=== PATIENT | female | born 1990 | race Hispanic/Latino ===

== ENCOUNTER 2018-06-18 16:03 | Emergency (ER) | payer OTHER ==
[2018-06-18] MEDS ORDERED: NA CHLORIDE 0.9% 1,000 ML ONE (16:32)
[2018-06-18] MEDS ORDERED: KETOROLAC 30 MG/ML INJ ONE (16:32)
[2018-06-18] MEDS ORDERED: ONDANSETRON 4 MG/2 ML VIAL ONE (16:32)
[2018-06-18 16:45] LABS: Absolute Monocytes 0.7 K/uL (0.1-1.3); Absolute Neutrophil 14.2 K/uL (1.8-8.0); Basophils % 0.2 % (0-1.3); Eosinophils % 0.1 % (0-4.4); Hematocrit 44.2 % (36.0-45.0); MCH 31.1 pg (27.0-35.0); MCV 90.9 fL (80-100); MPV 9.3 fL (7.6-11.3); Monocytes % 4.2 % (3.3-12.3); RBC Red Blood Cell Count 4.87 M/uL (3.86-4.86)
[2018-06-18 16:54] LABS: ALT/SGPT 16 U/L (12-78); AST/SGOT 14 U/L (15-37); Albumin 3.6 g/dL (3.4-5.0); Alkaline Phosphatase 73 U/L (45-117); Amylase Level 40 U/L (25-115); BUN Blood Urea Nitrogen 12 mg/dL (7-18); Bicarbonate 24 mmol/L (21-32); Bilirubin Direct < 0.1 mg/dL (0-0.2); Bilirubin Total 0.4 mg/dL (0.2-1.0); Glucose Level 98 mg/dL (74-106); Lipase 93 U/L (73-393); Potassium 3.7 mmol/L (3.5-5.1); Sodium Level 139 mmol/L (136-145)
[2018-06-18 17:05] LABS: Blood Morphology Comment NOT SEEN (NOT SEEN); Platelet Estimate ADEQ; Urine White Blood Cell Casts OK
--- NOTE | 2018-06-18 17:49 | RAD REPORT ---
EXAM DESCRIPTION: CTAbdomen Pelvis W Contrast - 06/18/2018 5:39 pm CLINICAL HISTORY: Abdominal pain. IV contrast only;Abd pain COMPARISON: Abdomen Pelvis W Contrast dated 04/29/2016; CT ABD PELVIS W CONTRAST dated 03/12/2015 TECHNIQUE: Biphasic CT imaging of the abdomen and pelvis was performed with 100 ml non-ionic IV cont rast. All CT scans are performed using dose optimization technique as appropriate and may include automated exposure control or mA/KV adjustment according to patient size. FINDINGS: The lung bases are clear.Cholecystectomy. The liver, spleen, pancreas, adrenal glands and kidneys are within normal limits. No bowel obstruction, free air or abscess. Multiple thickening enhancing small bowel loops are seen i n the abdomen compatible with enteritis. There is involvement of the terminal ileum also seen. The ap pendix is normal. Mild free fluid is present. No evidence of significant lymphadenopathy. No suspicious bony findings. IMPRESSION: Moderate enteritis pattern is seen including the terminal ileum. The findings may be inf ectious or related to underlying inflammatory bowel disease.
--- NOTE | 2018-06-18 17:53 | ER ---
Nurse's Notes [facility] Name: Jazmyn Barron Age: 27 yrs Sex: Female : 1990 Arrival Date: 06/18/2018 Time: 16:07 Bed 26 Private MD: None, None Diagnosis: Enteritis;Upper abdominal pain, unspecified;Nausea and vomiting Presentation: 06/18 16:09 Presenting complaint: Patient states: Epigastric pain since night, but today aj1 the pain became severe and she started vomiting. Reports pain is exacerbated by eating. Denies fever. Reports diarrhea. Transition of care: patient was not received from another setting of care. Onset of symptoms was May 16, 2018. Risk Assessment: Do you want to hurt yourself or someone else? Patient reports no desire to harm self or others. Initial Sepsis Screen: Does the patient meet any 2 criteria? HR > 90 bpm. No. Patient's initial sepsis screen is negative. Does the patient have a suspected source of infection? No. Patient's initial sepsis screen is negative. Care prior to arrival: None. 16:09 Method Of Arrival: Ambulatory aj1 16:09 Acuity: TRISTON 3 aj1 Triage Assessment: 16:11 General: Appears in no apparent distress. uncomfortable, Behavior is anxious, crying, aj1 restless. Pain: Complains of pain in epigastric area Pain currently is 10 out of 10 on a pain scale. Quality of pain is described as burning, Pain began 2-3 days ago. Neuro: Level of Consciousness is awake, alert, obeys commands. Cardiovascular: Patient's skin is warm and dry. Respiratory: Airway is patent Respiratory effort is even, unlabored, Respiratory pattern is regular, symmetrical. GI: Reports diarrhea, nausea, vomiting. 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 - Social history:: Smoking status: Patient/guardian denies using tobacco. - Ebola Screening: : Patient denies travel to an Ebola-affected area in the 21 days before illness onset. Screenin:33 Abuse screen: Denies threats or abuse. Denies injuries from another. Nutritional rv screening: No deficits noted. Tuberculosis screening: No symptoms or risk factors identified. Fall Risk None identified. Assessment: 16:20 General: Appears in no apparent distress. uncomfortable, Behavior is calm, cooperative. rv 16:20 Pain: Complains of pain in abdomen Pain currently is 10 out of 10 on a pain scale. rv Neuro: Level of Consciousness is awake, alert, obeys commands, Oriented to person, place, time, situation. Cardiovascular: Capillary refill < 3 seconds. Respiratory: Airway is patent. GI: No signs and/or symptoms were reported involving the gastrointestinal system. : No signs and/or symptoms were reported regarding the genitourinary system. EENT: No signs and/or symptoms were reported regarding the EENT system. Derm: Skin is intact. Musculoskeletal: No signs and/or symptoms reported regarding the musculoskeletal system. 17:49 Reassessment: Patient appears in no apparent distress at this time. Patient and/or rv family updated on plan of care and expected duration. Pain level reassessed. Patient is alert, oriented x 3, equal unlabored respirations, skin warm/dry/pink. pain is decreasing. Vital Signs: 16:11 BP 130 / 90; Pulse 106; Resp 20; Temp 97.4(TE); Pulse Ox 96% on R/A; Weight 99.79 kg aj1 (R); Height 4 ft. 10 in. (147.32 cm) (R); Pain 10/10; 16:34 BP 105 / 70; Pulse 102; Pulse Ox 100% on R/A; rv 17:48 BP 108 / 61; Pulse 107; Pulse Ox 100% on R/A; rv 16:11 Body Mass Index 45.98 (99.79 kg, 147.32 cm) aj1 ED Course: 16:07 Patient arrived in ED. sb2 16:07 None, None is Private Physician. sb2 16:11 Triage completed. aj1 16:11 Arm band placed on Patient placed in an exam room. aj1 16:14 [facility]-C [facility]. kb 16:14 Gene Briscoe MD is Attending Physician. kb 16:20 Inserted saline lock: 20 gauge in right antecubital area, using aseptic technique. rv 16:33 Patient has correct armband on for positive identification. Bed in low position. Call rv light in reach. Side rails up X 1. Pulse ox on. NIBP on. 17:39 CT Abd/Pelvis - W/Contrast In Process Unspecified. EDMS 17:39 CT completed. Patient moved to CT via wheelchair. Patient moved back from CT. bq 18:00 No provider procedures requiring assistance completed. IV discontinued, bleeding rv controlled, No redness/swelling at site. Pressure dressing applied. Administered Medications: 16:31 Drug: TORadol 30 mg Route: IVP; Site: right antecubital; rv 17:49 Follow up: Response: Pain is decreased rv 16:32 Drug: NS 0.9% 1000 ml Route: IV; Rate: 1000 ml; Site: right antecubital; rv 17:50 Follow up: IV Status: Completed infusion rv 16:32 Drug: Zofran 4 mg Route: IVP; Site: right antecubital; rv 17:49 Follow up: Response: Nausea is decreased rv 17:59 Drug: Cipro 500 mg Route: PO; rv 18:00 Follow up: Response: Medication administered at discharge. rv 18:00 Drug: Flagyl 500 mg Route: PO; rv 18:00 Follow up: Response: Medication administered at discharge. rv Outcome: 17:52 Discharge ordered by . kb 18:01 Discharged to home ambulatory. rv 18:01 Condition: improved 18:01 Discharge instructions given to patient, Instructed on discharge instructions, follow up and referral plans. medication usage, Demonstrated understanding of instructions, follow-up care, medications, Prescriptions given X 4. 18:01 Patient left the ED. rv Signatures: Dispatcher [employer] EDMS Eliz Jean, PACKAGING SPECIALIST-C PACKAGING SPECIALIST-Raine Vasquez, RN RN aj1 Madie Whiting Sheri sb2 Eldon Reid RN RN rv
--- NOTE | 2018-06-18 17:53 | EDPHYS ---
Physician Documentation [facility] Name: Jazmyn Barron Age: 27 yrs Sex: Female : 1990 Arrival Date: 06/18/2018 Time: 16:07 Bed 26 Private MD: None, None ED Physician Gene Briscoe HPI: 06/18 16:23 This 27 yrs old Female presents to ER via Ambulatory with complaints of kb Nausea/Vomiting/Diarrhea. 16:23 The patient has not experienced similar symptoms in the past. The patient has not kb recently seen a physician. 16:25 The patient presents with abdominal pain in the epigastric area. Onset: The kb symptoms/episode began/occurred 3 day(s) ago. The symptoms do not radiate. Associated signs and symptoms: Pertinent positives: nausea and vomiting. The symptoms are described as constant. Modifying factors: The symptoms are alleviated by nothing, the symptoms are aggravated by pressure. Severity of pain: At its worst the pain was moderate in the emergency department the pain is unchanged. Pt reports abd pain for 3 days. Nausea and vomiting started today. 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 - Social history:: Smoking status: Patient/guardian denies using tobacco. - Ebola Screening: : Patient denies travel to an Ebola-affected area in the 21 days before illness onset. ROS: 16:24 Constitutional: Negative for fever, chills, and weight loss, Neck: Negative for injury, kb pain, and swelling, Cardiovascular: Negative for chest pain, palpitations, and edema, Respiratory: Negative for shortness of breath, cough, wheezing, and pleuritic chest pain, Back: Negative for injury and pain, : Negative for injury, bleeding, discharge, and swelling, MS/Extremity: Negative for injury and deformity, Skin: Negative for injury, rash, and discoloration, Neuro: Negative for headache, weakness, numbness, tingling, and seizure. 16:24 Abdomen/GI: Positive for abdominal pain, nausea and vomiting, Negative for diarrhea, constipation, abdominal cramps, abdominal distension, anorexia. Exam: 16:24 Constitutional: This is a well developed, well nourished patient who is awake, alert, kb and in no acute distress. Head/Face: Normocephalic, atraumatic. Chest/axilla: Normal chest wall appearance and motion. Nontender with no deformity. No lesions are appreciated. Cardiovascular: Regular rate and rhythm with a normal S1 and S2. No gallops, murmurs, or rubs. Normal PMI, no JVD. No pulse deficits. Respiratory: Lungs have equal breath sounds bilaterally, clear to auscultation and percussion. No rales, rhonchi or wheezes noted. No increased work of breathing, no retractions or nasal flaring. Back: No spinal tenderness. No costovertebral tenderness. Full range of motion. Skin: Warm, dry with normal turgor. Normal color with no rashes, no lesions, and no evidence of cellulitis. MS/ Extremity: Pulses equal, no cyanosis. Neurovascular intact. Full, normal range of motion. Neuro: Awake and alert, GCS 15, oriented to person, place, time, and situation. Cranial nerves II-XII grossly intact. Motor strength 5/5 in all extremities. Sensory grossly intact. Cerebellar exam normal. Normal gait. 16:24 Abdomen/GI: Inspection: abdomen appears normal, Bowel sounds: normal, in all quadrants, Palpation: soft, in all quadrants, moderate abdominal tenderness, in the right upper quadrant. Vital Signs: 16:11 BP 130 / 90; Pulse 106; Resp 20; Temp 97.4(TE); Pulse Ox 96% on R/A; Weight 99.79 kg aj1 (R); Height 4 ft. 10 in. (147.32 cm) (R); Pain 10/10; 16:34 BP 105 / 70; Pulse 102; Pulse Ox 100% on R/A; rv 17:48 BP 108 / 61; Pulse 107; Pulse Ox 100% on R/A; rv 16:11 Body Mass Index 45.98 (99.79 kg, 147.32 cm) aj1 MDM: 16:14 Patient medically screened. kb 16:24 Data reviewed: vital signs, nurses notes. Data interpreted: Pulse oximetry: on room air kb is 96 %. Interpretation: normal. 17:51 Counseling: I had a detailed discussion with the patient and/or guardian regarding: the kb historical points, exam findings, and any diagnostic results supporting the discharge/admit diagnosis, lab results, radiology results, the need for outpatient follow up, a family practitioner, to return to the emergency department if symptoms worsen or persist or if there are any questions or concerns that arise at home. 06/18 16:18 Order name: Amylase, Serum; Complete Time: 17:00 kb 06/18 16:18 Order name: Basic Metabolic Panel; Complete Time: 17:00 kb 06/18 16:18 Order name: CBC with Diff; Complete Time: 17:06 kb 06/18 16:18 Order name: Hepatic Function; Complete Time: 17:00 kb 06/18 16:18 Order name: Lipase; Complete Time: 17:00 kb 06/18 16:49 Order name: CBC Smear Scan; Complete Time: 17:06 EDMS 06/18 17:01 Order name: CT Abd/Pelvis - W/Contrast; Complete Time: 17:50 kb 06/18 17:28 Order name: Urine Dipstick--Ancillary (enter results) eb 06/18 17:28 Order name: Urine --Ancillary (enter results) eb 06/18 16:18 Order name: IV Saline Lock; Complete Time: 16:23 kb 06/18 16:18 Order name: Labs collected and sent; Complete Time: 16:23 kb 06/18 16:18 Order name: Urine Dipstick-Ancillary (obtain specimen); Complete Time: 17:50 kb Administered Medications: 16:31 Drug: TORadol 30 mg Route: IVP; Site: right antecubital; rv 17:49 Follow up: Response: Pain is decreased rv 16:32 Drug: NS 0.9% 1000 ml Route: IV; Rate: 1000 ml; Site: right antecubital; rv 17:50 Follow up: IV Status: Completed infusion rv 16:32 Drug: Zofran 4 mg Route: IVP; Site: right antecubital; rv 17:49 Follow up: Response: Nausea is decreased rv 17:59 Drug: Cipro 500 mg Route: PO; rv 18:00 Follow up: Response: Medication administered at discharge. rv 18:00 Drug: Flagyl 500 mg Route: PO; rv 18:00 Follow up: Response: Medication administered at discharge. rv Disposition: 18:26 Co-signature as Attending Physician, Gene Briscoe MD. rn Disposition: 06/18/18 17:52 Discharged to Home. Impression: Enteritis, Upper abdominal pain, unspecified, Nausea and vomiting. - Condition is Stable. - Discharge Instructions: Nausea and Vomiting, Adult, [id number], Abdominal Pain, Adult, [id number]. - Prescriptions for Bentyl 20 mg Oral Tablet - take 1 tablet by ORAL route every 6 hours As needed; 20 tablet. Flagyl 500 mg Oral Tablet - take 1 tablet by ORAL route every 8 hours for 7 days; 21 tablet. Zofran 4 mg Oral Tablet - take 1 tablet by ORAL route every 6 hours As needed; 20 tablet. Cipro 500 mg Oral Tablet - take 1 tablet by ORAL route every 12 hours for 7 days; 14 tablet. - Medication Reconciliation Form, Thank You Letter, Antibiotic Education, Prescription Opioid Use form. - Follow up: Emergency Department; When: As needed; Reason: Worsening of condition. Follow up: Private Physician; When: 2 - 3 days; Reason: Recheck today's complaints, Continuance of care, Re-evaluation by your physician. Signatures: Dispatcher [employer] EDMS Eliz Jean, CODY-C CLINICAL ENGINEER-Raine Vasquez RN RN aj1 Gene Briscoe MD MD rn Vicente, Ronaldo, RN RN rv Corrections: (The following items were deleted from the chart) 18:01 17:52 06/18/2018 17:52 Discharged to Home. Impression: Enteritis; Upper abdominal pain, rv unspecified; Nausea and vomiting. Condition is Stable. Forms are Medication Reconciliation Form, Thank You Letter, Antibiotic Education, Prescription Opioid Use. Follow up: Emergency Department; When: As needed; Reason: Worsening of condition. Follow up: Private Physician; When: 2 - 3 days; Reason: Recheck today's complaints, Continuance of care, Re-evaluation by your physician. kb
[2018-06-18] MEDS ORDERED: metroNIDAZOLE 500 MG TABLET ONE (17:59)
[2018-06-18] MEDS ORDERED: CIPROFLOXACIN HCL 500 MG TAB ONE (17:59)
[2018-06-18 18:09] VITALS: TEMP 97.4
[2018-06-18 18:10] VITALS: O2SAT 100
[2018-06-18 18:11] VITALS: BP 108/61
[2018-06-18 18:21] LABS: Urine Blood NEGATIVE (NEG); Urine Glucose NEGATIVE (NEG); Urine Protein 1+ (NEG)
== END 2018-06-18 18:01 | disposition home or self-care (01) ==
LOC: ER 16:03
DX: R10.9 Unspecified abdominal pain (principal)
CPT/HCPCS: 36415; 74177; 80048; 80076; 81003; 81025; 82150; 83690; 85025; 96361; 96374; 96375; 99284; J2405; J7030; Q9967

== ENCOUNTER 2018-06-25 19:25 | Emergency (ER) | payer OTHER ==
[2018-06-25 20:32] LABS: Urine Blood TRACE (NEG); Urine Glucose NEGATIVE (NEG); Urine Protein NEGATIVE (NEG); Urine Specific Gravity <1.005 (1.005-1.030); Urine pH 6.5 (5.0-7.0)
[2018-06-25 20:54] LABS: Absolute Lymphocytes (CBC) 3.5 K/uL (0.7-4.9); Absolute Monocytes 0.7 K/uL (0.1-1.3); Absolute Neutrophil 6.2 K/uL (1.8-8.0); Basophils % 0.6 % (0-1.3); Eosinophils % 1.1 % (0-4.4); Lymphocytes % 32.9 % (15.3-44.8); MCH 31.6 pg (27.0-35.0); MCV 91.4 fL (80-100); MPV 8.2 fL (7.6-11.3); Monocytes % 6.9 % (3.3-12.3); RBC Red Blood Cell Count 4.05 M/uL (3.86-4.86)
[2018-06-25 21:26] LABS: BUN Blood Urea Nitrogen 6 mg/dL (7-18); Bicarbonate 27 mmol/L (21-32); Glucose Level 93 mg/dL (74-106); HCG, Quantitative 458 mIU/mL (1-3); Sodium Level 140 mmol/L (136-145)
[2018-06-25 21:30] LABS: Potassium 2.7 mmol/L (3.5-5.1)
[2018-06-25] MEDS ORDERED: POTASSIUM 25 MEQ EFFERV TAB ONE (21:37)
--- NOTE | 2018-06-25 21:40 | ER ---
Nurse's Notes [facility] Name: Jazmyn Barron Age: 27 yrs Sex: Female : 1990 Arrival Date: 06/25/2018 Time: 19:27 Bed 27 Private MD: Diagnosis: Hypokalemia;Encounter for test, result positive Presentation: 06/25 20:00 Presenting complaint: Patient states: she was here last week for abdominal pain, n/v mg2 and discharged with antibiotics. Last night she did 3x urine preg test and she is here to make sure she is . she has mild low back pain, nausea and feeling exhausted. Transition of care: patient was not received from another setting of care. Onset of symptoms was June 24, 2018. Risk Assessment: Do you want to hurt yourself or someone else? Patient reports no desire to harm self or others. Initial Sepsis Screen: Does the patient meet any 2 criteria? No. Patient's initial sepsis screen is negative. Does the patient have a suspected source of infection? No. Patient's initial sepsis screen is negative. Care prior to arrival: None. 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 - Social history:: Smoking status: Patient/guardian denies using tobacco, Patient/guardian denies using alcohol, street drugs, IV drugs. - Ebola Screening: : No symptoms or risks identified at this time. Screenin:05 Abuse screen: Denies threats or abuse. Denies injuries from another. Nutritional mg2 screening: No deficits noted. Tuberculosis screening: No symptoms or risk factors identified. Fall Risk None identified. Assessment: 20:50 General: Appears in no apparent distress. comfortable, Behavior is calm, cooperative. mg2 Pain: Complains of pain in lower back Pain does not radiate. Pain currently is 2 out of 10 on a pain scale. Quality of pain is described as aching, Pain began gradually, Is intermittent, Alleviated by rest. Neuro: Level of Consciousness is awake, alert, obeys commands, Oriented to person, place, time, situation. Cardiovascular: Capillary refill < 3 seconds Patient's skin is warm and dry. Respiratory: Airway is patent Respiratory effort is even, unlabored, Respiratory pattern is regular, symmetrical. GI: Reports nausea. : Urine is clear. EENT: No signs and/or symptoms were reported regarding the EENT system. Derm: Skin is intact, Skin is pink, warm \T\ dry. normal. Musculoskeletal: No signs and/or symptoms reported regarding the musculoskeletal system. 21:29 Reassessment: Patient appears in no apparent distress at this time. K- 2.7 relayed by [facility] accelerator technician. 21:36 Reassessment: Patient appears in no apparent distress at this time. Patient and/or mg2 family updated on plan of care and expected duration. Pain level reassessed. Patient is alert, oriented x 3, equal unlabored respirations, skin warm/dry/pink. Vital Signs: 20:04 BP 132 / 75; Pulse 103; Resp 18; Temp 98.4(O); Pulse Ox 100% ; Weight 99.79 kg; Height mg2 4 ft. 10 in. (147.32 cm); Pain 2/10; 22:05 BP 128 / 78; Pulse 90; Resp 18; Pulse Ox 100% on R/A; Pain 0/10; mg2 20:04 Body Mass Index 45.98 (99.79 kg, 147.32 cm) mg2 ED Course: 19:27 Patient arrived in ED. ds1 19:58 [facility] Flaherty [facility] 19:58 Ad Montgomery MD is Attending Physician. jmm 20:00 Austen Rodríguez, CECILIA is Primary Nurse. mg2 20:02 Triage completed. mg2 20:05 Arm band placed on. mg2 20:38 No provider procedures requiring assistance completed. Inserted saline lock: 20 gauge mg2 in right antecubital area, using aseptic technique. Blood collected. 20:52 Patient has correct armband on for positive identification. mg2 21:04 Ultrasound completed. Patient tolerated well. sg3 21:09 US Pelvis Complete In Process Unspecified. EDMS 21:38 Ulises Acosat MD is Referral Physician. jmm 22:04 IV discontinued, intact, bleeding controlled, No redness/swelling at site. Pressure mg2 dressing applied. Administered Medications: 21:36 Drug: K-Lyte Effervescent Tablet 50 mEq Route: PO; mg2 22:05 Follow up: Response: No adverse reaction; Medication administered at discharge. mg2 Outcome: 21:39 Discharge ordered by . laya 22:04 Discharged to home ambulatory, with friend. mg2 22:04 Condition: stable 22:04 Discharge instructions given to patient, friend, Instructed on discharge instructions, follow up and referral plans. Demonstrated understanding of instructions, follow-up care. 22:06 Patient left the ED. mg2 Signatures: Dispatcher [employer] EDMS Gianni Flaherty PA PA jmm Sanford, Demi ds1 Chelo Pinedo sg3 Austen Rodríguez, CECILIA RN mg2
--- NOTE | 2018-06-25 21:40 | EDPHYS ---
Physician Documentation [facility] Name: Jazmyn Barron Age: 27 yrs Sex: Female : 1990 Arrival Date: 06/25/2018 Time: 19:27 Bed 27 Private MD: ED Physician Ad Montgomery HPI: 06/25 20:20 This 27 yrs old Female presents to ER via Ambulatory with complaints of jmm Nausea-Possible . 20:20 The patient presents to the emergency department with nausea. Onset: The jmm symptoms/episode began/occurred gradually, 1 day(s) ago. Possible causes: . The symptoms are aggravated by nothing. The symptoms are alleviated by nothing. Associated signs and symptoms: Pertinent negatives: vomiting. This is a 27 year old female with no chronic medical conditions that presents to the ED with lower back pain and nausea beginning today. Patient denies vaginal bleeding, pelvic pain, diarrhea, vomiting, or abdominal pain. Patient states she took a home test at home which was positive. The patient was recently diagnosed with an infection in her small intestine and was currently taking cipro and flagyl which she discontinued today. . 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 - Social history:: Smoking status: Patient/guardian denies using tobacco, Patient/guardian denies using alcohol, street drugs, IV drugs. - Ebola Screening: : No symptoms or risks identified at this time. ROS: 20:20 Constitutional: Negative for fever, chills, and weight loss, Cardiovascular: Negative jmm for chest pain, palpitations, and edema, Respiratory: Negative for shortness of breath, cough, wheezing, and pleuritic chest pain. 20:20 MS/Extremity: Negative for injury and deformity, Skin: Negative for injury, rash, and discoloration, Neuro: Negative for headache, weakness, numbness, tingling, and seizure. 20:20 Abdomen/GI: Positive for nausea. 20:20 Back: Positive for pain with movement. 20:20 All other systems are negative. Exam: 20:20 Head/Face: atraumatic. Chest/axilla: Normal chest wall appearance and motion. [facility] Cardiovascular: Regular rate and rhythm. No edema appreciated Respiratory: Normal respirations, no respiratory distress appreciated 20:20 Constitutional: The patient appears in no acute distress, alert, awake. 20:20 Abdomen/GI: Inspection: abdomen appears normal, Bowel sounds: normal, Palpation: abdomen is soft and non-tender. 20:20 Back: ROM is normal. 20:20 Musculoskeletal/extremity: ROM: intact in all extremities. 20:20 Skin: Appearance: Color: normal in color. 20:20 Neuro: Orientation: is normal, Mentation: is normal, Memory: is normal. 20:20 Psych: Behavior/mood is pleasant, cooperative. Vital Signs: 20:04 BP 132 / 75; Pulse 103; Resp 18; Temp 98.4(O); Pulse Ox 100% ; Weight 99.79 kg; Height mg2 4 ft. 10 in. (147.32 cm); Pain 2/10; 22:05 BP 128 / 78; Pulse 90; Resp 18; Pulse Ox 100% on R/A; Pain 0/10; mg2 20:04 Body Mass Index 45.98 (99.79 kg, 147.32 cm) mg2 MDM: 20:18 Patient medically screened. [facility] 21:35 Data reviewed: vital signs, nurses notes, lab test result(s), radiologic studies, [facility] ultrasound. Data interpreted: Pulse oximetry: on room air is 100 %. Interpretation: normal. Counseling: I had a detailed discussion with the patient and/or guardian regarding: the historical points, exam findings, and any diagnostic results supporting the discharge/admit diagnosis, the presence of at least one elevated blood pressure reading (>120/80) during this emergency department visit, lab results, radiology results, the need for outpatient follow up, to return to the emergency department if symptoms worsen or persist or if there are any questions or concerns that arise at home. ED course: I discussed the patient the need to follow up with OBGYN. Advised to discontinue cipro, flagyl. Encouraged to follow up with OB. Given strict return precautions for pelvic pain, vaginal bleeding, abdominal pain ext. Patient understood and agrees with the plan of care. . 06/25 20:12 Order name: Urine Dipstick--Ancillary (enter results); Complete Time: 20:50 fc 06/25 20:18 Order name: CBC with Diff; Complete Time: 21:21 [facility] 06/25 20:18 Order name: BMP; Complete Time: 21:30 [facility] 06/25 20:18 Order name: Quantitative Hcg; Complete Time: 21:30 [facility] 06/25 20:18 Order name: Abo/rh Typing; Complete Time: 21:30 [facility] 06/25 21:26 Order name: ABO/RH no charge; Complete Time: 21:30 [facility] 06/25 19:59 Order name: Urine Dipstick-Ancillary (obtain specimen); Complete Time: 20:11 [facility] 06/25 19:59 Order name: Urine Test (obtain specimen); Complete Time: 20:11 [facility] 06/25 20:20 Order name: US Pelvis Complete; Complete Time: 22:04 [facility] Administered Medications: 21:36 Drug: K-Lyte Effervescent Tablet 50 mEq Route: PO; mg2 22:05 Follow up: Response: No adverse reaction; Medication administered at discharge. mg2 Disposition: 06/25/18 21:39 Discharged to Home. Impression: Hypokalemia, Encounter for test, result positive. - Condition is Stable. - Discharge Instructions: Potassium Content of Foods, Back Pain in , Hypokalemia. - Medication Reconciliation Form, Thank You Letter, Antibiotic Education, Prescription Opioid Use form. - Follow up: Ulises Acosta MD; When: 2 - 3 days; Reason: Recheck today's complaints, Continuance of care, Re-evaluation by your physician. Addendum: 06/26/2018 23:57 Co-signature as Attending Physician, Ad Montgomery MD. g s Signatures: Dispatcher [employer] [facility] Gianni Flaherty PA PA jmm Starr, Gregory, MD MD Austen Rodríguez RN RN mg2 Corrections: (The following items were deleted from the chart) 06/25 22:06 21:39 06/25/2018 21:39 Discharged to Home. Impression: Hypokalemia; Encounter for mg2 test, result positive. Condition is Stable. Forms are Medication Reconciliation Form, Thank You Letter, Antibiotic Education, Prescription Opioid Use. Follow up: Ulises Acosta; When: 2 - 3 days; Reason: Recheck today's complaints, Continuance of care, Re-evaluation by your physician. laya
--- NOTE | 2018-06-25 21:42 | RAD REPORT ---
EXAM DESCRIPTION: US - Pelvis Complete - 06/25/2018 9:09 pm CLINICAL HISTORY: Pelvic pain COMPARISON: 06/18/2018 FINDINGS: Uterus measures 9 x 4 x 4 centimeters. The endometrial stripe measures 11 millimeters. A f ibroid is not seen. Ovaries are normal in size and echotexture. No significant free fluid is seen. IMPRESSION: Unremarkable pelvic ultrasound
[2018-06-25 22:18] VITALS: BP 128/78; O2SAT 100
[2018-06-25 22:19] VITALS: TEMP 98.4
== END 2018-06-25 22:06 | disposition home or self-care (01) ==
LOC: ER 19:25
DX: O26.891 Other specified pregnancy related conditions, first trimester (principal); E87.6 Hypokalemia
CPT/HCPCS: 36415; 76856; 80048; 81003; 84702; 85025; 86900; 86901; 99284

== ENCOUNTER 2018-07-09 19:12 | Emergency (ER) | payer OTHER ==
[2018-07-09 20:11] LABS: Absolute Lymphocytes (CBC) 3.2 K/uL (0.7-4.9); Absolute Monocytes 0.5 K/uL (0.1-1.3); Absolute Neutrophil 6.3 K/uL (1.8-8.0); Basophils % 0.9 % (0-1.3); Eosinophils % 0.8 % (0-4.4); Hematocrit 37.4 % (36.0-45.0); Lymphocytes % 31.3 % (15.3-44.8); MCH 32.4 pg (27.0-35.0); MCV 93.1 fL (80-100); MPV 9.5 fL (7.6-11.3); Monocytes % 5.2 % (3.3-12.3); RBC Red Blood Cell Count 4.02 M/uL (3.86-4.86)
[2018-07-09 20:41] LABS: BUN Blood Urea Nitrogen 10 mg/dL (7-18); Bicarbonate 28 mmol/L (21-32); Glucose Level 86 mg/dL (74-106); HCG, Quantitative 21186 mIU/mL (1-3); Potassium 3.5 mmol/L (3.5-5.1); Sodium Level 139 mmol/L (136-145)
[2018-07-09 21:17] LABS: Urine Blood TRACE (NEG); Urine Glucose NEGATIVE (NEG); Urine Protein NEGATIVE (NEG); Urine Specific Gravity 1.025 (1.005-1.030)
--- NOTE | 2018-07-09 21:58 | ER ---
Nurse's Notes [facility] Name: Jazmyn Barron Age: 27 yrs Sex: Female : 1990 Arrival Date: 07/09/2018 Time: 19:13 Bed 30 Private MD: Diagnosis: Lower abdominal pain, unspecified-Cramping during Presentation: 07/09 19:19 Presenting complaint: Patient states: Lower abdominal cramping today with spotting aj yesterday that has resolved. Patient reports being 6 week . Transition of care: patient was not received from another setting of care. Onset of symptoms was July 08, 2018. Risk Assessment: Do you want to hurt yourself or someone else? Patient reports no desire to harm self or others. Initial Sepsis Screen: Does the patient meet any 2 criteria? No. Patient's initial sepsis screen is negative. Does the patient have a suspected source of infection? No. Patient's initial sepsis screen is negative. Care prior to arrival: None. 19:19 Method Of Arrival: Ambulatory 19:19 Acuity: [place] 3 aj Triage Assessment: 19:20 General: Appears in no apparent distress. comfortable, Behavior is calm, cooperative, aj appropriate for age. Pain: Complains of pain in pelvis. Neuro: Level of Consciousness is awake, alert, obeys commands, Oriented to person, place, time, situation, Appropriate for age. Respiratory: Airway is patent Respiratory effort is even, unlabored, Respiratory pattern is regular, symmetrical. GI: Abdomen is non-distended, obese. : Reports cramping, in bilateral lower quadrant(s) vaginal bleeding that is spotty, resolved. Derm: Skin is intact, is healthy with good turgor, Skin is pink, warm \T\ dry. normal. 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 - Social history:: Smoking status: Patient/guardian denies using tobacco. - Ebola Screening: : Patient negative for fever greater than or equal to 101.5 degrees Fahrenheit, and additional compatible Ebola Virus Disease symptoms Patient denies exposure to infectious person Patient denies travel to an Ebola-affected area in the 21 days before illness onset No symptoms or risks identified at this time. Screenin:35 Abuse screen: Denies threats or abuse. Denies injuries from another. Nutritional mg2 screening: No deficits noted. Tuberculosis screening: No symptoms or risk factors identified. Fall Risk None identified. Assessment: 19:45 General: Appears in no apparent distress. comfortable, Behavior is calm, cooperative. mg2 Pain: Complains of pain in pelvis Pain does not radiate. Pain currently is 2 out of 10 on a pain scale. Quality of pain is described as crampy, Pain began gradually, 1 day ago. Is intermittent, Alleviated by rest. Neuro: Level of Consciousness is awake, alert, obeys commands, Oriented to person, place, time, situation. Cardiovascular: Capillary refill. Respiratory: Airway is patent Respiratory effort is even, unlabored, Respiratory pattern is regular, symmetrical. GI: Bowel sounds present X 4 quads. Abd is soft. : No signs and/or symptoms were reported regarding the genitourinary system. Urine is clear. EENT: No signs and/or symptoms were reported regarding the EENT system. Derm: Skin is intact, Skin is pink, warm \T\ dry. normal. Musculoskeletal: Circulation, motion, and sensation intact. 20:37 Reassessment: Patient appears in no apparent distress at this time. Patient and/or mg2 family updated on plan of care and expected duration. Pain level reassessed. Patient is alert, oriented x 3, equal unlabored respirations, skin warm/dry/pink. 22:19 Reassessment: Patient appears in no apparent distress at this time. Patient and/or mg2 family updated on plan of care and expected duration. Pain level reassessed. Patient is alert, oriented x 3, equal unlabored respirations, skin warm/dry/pink. Vital Signs: 19:20 BP 119 / 59; Pulse 91; Resp 16; Temp 98.1; Pulse Ox 100% on R/A; Weight 93.89 kg; aj Height 4 ft. 10 in. (147.32 cm); 20:36 BP 105 / 59; Pulse 75; Resp 18; Pulse Ox 100% on R/A; mg2 22:19 BP 106 / 70; Pulse 72; Resp 18; Pulse Ox 100% on R/A; mg2 19:20 Body Mass Index 43.26 (93.89 kg, 147.32 cm) ED Course: 19:13 Patient arrived in ED. am2 19:20 Triage completed. aj 19:20 Arm band placed on left wrist. Patient placed in an exam room. aj 19:23 Cesario Ordoñez PA is PHCP. cp 19:23 Ad Montgomery MD is Attending Physician. cp 19:34 Austen Rodríguez, RN is Primary Nurse. mg2 19:44 Inserted saline lock: 20 gauge in right antecubital area, using aseptic technique. mg2 Blood collected. 19:46 Patient has correct armband on for positive identification. Bed in low position. Call mg2 light in reach. Side rails up X 1. Pulse ox on. NIBP on. 22:00 US Transvaginal Ob In Process Unspecified. EDMS 22:17 No provider procedures requiring assistance completed. IV discontinued, intact, mg2 bleeding controlled, No redness/swelling at site. Pressure dressing applied. Administered Medications: No medications were administered Outcome: 21:57 Discharge ordered by MD. cp 22:18 Discharged to home ambulatory. mg2 22:18 Condition: stable 22:18 Discharge instructions given to patient, Instructed on discharge instructions, follow up and referral plans. Demonstrated understanding of instructions, follow-up care, medications, Prescriptions given X 1. 22:19 Patient left the ED. mg2 Signatures: Dispatcher [employer] EDErika Morales, RN RN Cesario Alejandro PA PA cp Moreno, Amanda am2 Austen Rodríguez, RN RN mg2
--- NOTE | 2018-07-09 21:58 | EDPHYS ---
Physician Documentation [facility] Name: Jazmyn Barron Age: 27 yrs Sex: Female : 1990 Arrival Date: 07/09/2018 Time: 19:13 Bed 30 Private MD: ED Physician Ad Montgomery HPI: 07/09 19:40 This 27 yrs old Female presents to ER via Ambulatory with complaints of cp Abdominal Cramping. 19:40 The patient presents to the emergency department with abdominal pain, of the right cp lower quadrant and left lower quadrant, that started yesterday, described as crampy. 19:40 The estimated gestational age is 6 weeks. cp 19:40 course: care: none, Leakage of Fluid: none appreciated, Ultrasound: cp the patient has not had an ultrasound. Previous pregnancies: in previous pregnancies patient has had no complications. Associated signs and symptoms: Pertinent positives: abdominal pain, spotting yesterday, none today, Pertinent negatives: diarrhea, dysuria, fever. 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 - Social history:: Smoking status: Patient/guardian denies using tobacco. - Ebola Screening: : Patient negative for fever greater than or equal to 101.5 degrees Fahrenheit, and additional compatible Ebola Virus Disease symptoms Patient denies exposure to infectious person Patient denies travel to an Ebola-affected area in the 21 days before illness onset No symptoms or risks identified at this time. ROS: 19:45 Constitutional: Negative for body aches, chills, fever, poor PO intake. cp 19:45 Eyes: Negative for injury, pain, redness, and discharge. cp 19:45 ENT: Negative for drainage from ear(s), ear pain, sore throat, difficulty swallowing, difficulty handling secretions. 19:45 Cardiovascular: Negative for chest pain, palpitations. 19:45 Respiratory: Negative for cough, shortness of breath, wheezing. 19:45 Abdomen/GI: Positive for abdominal cramps, Negative for vomiting, diarrhea, constipation, anorexia, black/tarry stool, rectal bleeding. 19:45 Back: Negative for pain at rest, pain with movement. 19:45 : Negative for urinary symptoms, flank pain, vaginal discharge, vaginal itching. 19:45 Skin: Negative for cellulitis, rash. 19:45 Neuro: Negative for dizziness, headache, weakness. 19:45 All other systems are negative. Exam: 19:50 Constitutional: The patient appears in no acute distress, alert, awake, non-toxic, well cp developed, well nourished. 19:50 Head/Face: Normocephalic, atraumatic. cp 19:50 Eyes: Periorbital structures: appear normal, Conjunctiva: normal, no exudate, no injection, Sclera: no appreciated abnormality, Lids and lashes: appear normal, bilaterally. 19:50 ENT: External ear(s): are unremarkable, Nose: is normal, Mouth: Lips: moist, Oral mucosa: pink and intact, moist, Posterior pharynx: is normal, airway is patent, no erythema, no exudate. 19:50 Chest/axilla: Inspection: normal, Palpation: is normal, no crepitus, no tenderness. 19:50 Cardiovascular: Rate: normal, Rhythm: regular. 19:50 Respiratory: the patient does not display signs of respiratory distress, Respirations: normal, no use of accessory muscles, no retractions, no splinting, no tachypnea, labored breathing, is not present, Breath sounds: are clear throughout, no decreased breath sounds, no stridor, no wheezing. 19:50 Abdomen/GI: Inspection: abdomen appears normal, Bowel sounds: active, all quadrants, Palpation: soft, in all quadrants, mild abdominal tenderness, in the right lower quadrant and left lower quadrant, rebound tenderness, is not appreciated. 19:50 Back: pain, is absent, ROM is normal. 19:50 Skin: cellulitis, is not appreciated, no rash present. Vital Signs: 19:20 BP 119 / 59; Pulse 91; Resp 16; Temp 98.1; Pulse Ox 100% on R/A; Weight 93.89 kg; aj Height 4 ft. 10 in. (147.32 cm); 20:36 BP 105 / 59; Pulse 75; Resp 18; Pulse Ox 100% on R/A; mg2 22:19 BP 106 / 70; Pulse 72; Resp 18; Pulse Ox 100% on R/A; mg2 19:20 Body Mass Index 43.26 (93.89 kg, 147.32 cm) aj MDM: 19:24 Patient medically screened. cp 20:00 Differential diagnosis: STD, ectopic . cp 21:56 Refusal of service: The patient/guardian displays adequate decision making capability cp and despite a detailed discussion of alternatives, benefits, risks, and consequences refuses: pelvic exam. 21:56 Data reviewed: vital signs, nurses notes, lab test result(s), radiologic studies, cp ultrasound, and as a result, I will discharge patient. 07/09 19:33 Order name: Quantitative Hcg; Complete Time: 21:23 07/09 21:23 Interpretation: HCGQ 23650; Reviewed. 07/09 19:33 Order name: Abo/rh Typing; Complete Time: 21:23 cp 07/09 19:33 Order name: Basic Metabolic Panel; Complete Time: 21:23 cp 07/09 19:33 Order name: CBC with Diff; Complete Time: 21:23 07/09 19:55 Order name: Urine Dipstick--Ancillary (enter results); Complete Time: 21:23 ms 07/09 21:23 Interpretation: Normal except: UBLD TRACE. 07/09 19:55 Order name: Urine --Ancillary (enter results); Complete Time: 21:23 ms 07/09 19:33 Order name: Urine Test (obtain specimen); Complete Time: 19:45 07/09 19:33 Order name: IV Saline Lock; Complete Time: 19:45 07/09 19:33 Order name: Labs collected and sent; Complete Time: 19:45 07/09 19:33 Order name: NPO; Complete Time: 19:45 07/09 19:33 Order name: Urine Dipstick-Ancillary (obtain specimen); Complete Time: 19:45 07/09 20:11 Order name: US Transvaginal Ob cp Administered Medications: No medications were administered Disposition: 07/10 18:24 Co-signature as Attending Physician, Ad Montgomery MD. Disposition: 07/09/18 21:57 Discharged to Home. Impression: Lower abdominal pain, unspecified - Cramping during . - Condition is Stable. - Discharge Instructions: Abdominal Pain During , First Trimester of , Pelvic Rest. - Prescriptions for Vitamin 27- 0.8 mg Oral Tablet - take 1 tablet by ORAL route once daily; 30 tablet. - Medication Reconciliation Form, Thank You Letter, Antibiotic Education, Prescription Opioid Use form. - Follow up: Private Physician; When: 1 week; Reason: Recheck today's complaints. - Problem is new. - Symptoms have improved. Signatures: Dispatcher [employer] EDMS Erika Olivier RN RN Cesario Alejandro PA PA Ad Delacruz MD MD gs Gardose, Michele RN RN mg2 Corrections: (The following items were deleted from the chart) 07/09 22:19 21:57 07/09/2018 21:57 Discharged to Home. Impression: Lower abdominal pain, mg2 unspecified - Cramping during . Condition is Stable. Forms are Medication Reconciliation Form, Thank You Letter, Antibiotic Education, Prescription Opioid Use. Follow up: Private Physician; When: 1 week; Reason: Recheck today's complaints. Problem is new. Symptoms have improved. cp
[2018-07-09 22:33] VITALS: TEMP 98.1; O2SAT 100
[2018-07-09 22:36] VITALS: BP 106/70
--- NOTE | 2018-07-10 11:51 | RAD REPORT ---
EXAM DESCRIPTION: US - Transvaginal OB - 07/09/2018 10:00 pm CLINICAL HISTORY: ABD CRAMPING, COMPARISON: None FINDINGS: A single gestational sac is seen within the uterus. The shape of the sac is within normal limits for gestational age. Within the sac is a single pole with crown-rump length of 4 mm, cor relating to estimated gestational age of 6 weeks 0 days. Estimated date of delivery is 03/04/2019. Heart rate is 130 BPM.. The placenta is not yet developed due to early gestational age. The maternal adnexa and ovaries are within normal limits. Normal Doppler blood flow was demonstrated to both ovaries. IMPRESSION: Single live early intrauterine gestation with estimated gestational age of 6 weeks 0 day s, LARISA 03/04/2019. No unusual or unexpected finding.
== END 2018-07-09 22:19 | disposition home or self-care (01) ==
LOC: ER 19:12
DX: R10.30 Lower abdominal pain, unspecified (principal); Z3A.01 Less than 8 weeks gestation of pregnancy
CPT/HCPCS: 36415; 76817; 80048; 81003; 81025; 84702; 85025; 86900; 86901; 99284

== ENCOUNTER 2018-07-28 12:05 | Emergency (ER) | payer OTHER ==
--- NOTE | 2018-07-28 13:21 | EDPHYS ---
Physician Documentation [facility] Name: Jazmyn Barron Age: 27 yrs Sex: Female : 1990 Arrival Date: 07/28/2018 Time: 12:07 Bed 14 Private MD: ED Physician Gene Briscoe HPI: 07/28 12:31 This 27 yrs old Female presents to ER via Ambulatory with complaints of kb Nausea/Vomiting, 9 wks . 12:31 The patient presents to the emergency department with nausea and vomiting. The kb estimated gestational age is 9 weeks. course: care: private OB physician, Dr. Winkler, Leakage of Fluid: none appreciated, Ultrasound: the patient had an ultrasound, which was normal. Previous pregnancies: the patient has never been . Associated signs and symptoms: Pertinent positives: nausea, vomiting. The patient has not experienced similar symptoms in the past. The patient has not recently seen a physician. Pt reports vomiting twice this morning and it was blood streaked. Historical: - Allergies: 12:11 No Known Drug Allergies; aj - Home Meds: 12:11 Vitamin 27-0.8 mg Oral tab 1 tab once daily [Active]; aj - PMHx: 12:11 intestinal infection; aj - PSHx: 12:11 Cholecystectomy; aj - Immunization history:: Adult Immunizations up to date. - Social history:: Smoking status: Patient/guardian denies using tobacco. - Ebola Screening: : Patient negative for fever greater than or equal to 101.5 degrees Fahrenheit, and additional compatible Ebola Virus Disease symptoms Patient denies exposure to infectious person Patient denies travel to an Ebola-affected area in the 21 days before illness onset No symptoms or risks identified at this time. ROS: 13:15 Constitutional: Negative for fever, chills, and weight loss, Cardiovascular: Negative kb for chest pain, palpitations, and edema, Respiratory: Negative for shortness of breath, cough, wheezing, and pleuritic chest pain, : Negative for injury, bleeding, discharge, and swelling, MS/Extremity: Negative for injury and deformity, Skin: Negative for injury, rash, and discoloration, Neuro: Negative for headache, weakness, numbness, tingling, and seizure. 13:15 Abdomen/GI: Positive for nausea and vomiting. Exam: 13:15 Constitutional: This is a well developed, well nourished patient who is awake, alert, kb and in no acute distress. Head/Face: Normocephalic, atraumatic. Chest/axilla: Normal chest wall appearance and motion. Nontender with no deformity. No lesions are appreciated. Cardiovascular: Regular rate and rhythm with a normal S1 and S2. No gallops, murmurs, or rubs. Normal PMI, no JVD. No pulse deficits. Respiratory: Lungs have equal breath sounds bilaterally, clear to auscultation and percussion. No rales, rhonchi or wheezes noted. No increased work of breathing, no retractions or nasal flaring. Abdomen/GI: Soft, non-tender, with normal bowel sounds. No distension or tympany. No guarding or rebound. No evidence of tenderness throughout. Skin: Warm, dry with normal turgor. Normal color with no rashes, no lesions, and no evidence of cellulitis. MS/ Extremity: Pulses equal, no cyanosis. Neurovascular intact. Full, normal range of motion. Neuro: Awake and alert, GCS 15, oriented to person, place, time, and situation. Cranial nerves II-XII grossly intact. Motor strength 5/5 in all extremities. Sensory grossly intact. Cerebellar exam normal. Normal gait. Vital Signs: 12:20 BP 111 / 74; Pulse 66; Resp 16 S; Temp 98(O); Pulse Ox 100% on R/A; Weight 93.44 kg jl7 (R); Height 4 ft. 10 in. (147.32 cm) (R); Pain 0/10; 12:20 Body Mass Index 43.05 (93.44 kg, 147.32 cm) jl7 MDM: 12:13 Patient medically screened. kb 12:31 Data reviewed: vital signs, nurses notes. Data interpreted: Pulse oximetry: on room air kb is 100 %. Interpretation: normal. 13:15 Counseling: I had a detailed discussion with the patient and/or guardian regarding: the kb historical points, exam findings, and any diagnostic results supporting the discharge/admit diagnosis, lab results, the need for outpatient follow up, a family practitioner, to return to the emergency department if symptoms worsen or persist or if there are any questions or concerns that arise at home. ED course: Tolerating PO intake. 07/28 13:05 Order name: Urine Dipstick--Ancillary (enter results) eb 07/28 13:05 Order name: Urine --Ancillary (enter results) eb 07/28 12:25 Order name: PO challenge; Complete Time: 13:00 kb 07/28 12:25 Order name: Urine Dipstick-Ancillary (obtain specimen); Complete Time: 13:00 kb Administered Medications: No medications were administered Disposition: 16:01 Co-signature as Attending Physician, Gene Briscoe MD. rn Disposition: 07/28/18 13:20 Discharged to Home. Impression: Vomiting of , unspecified. - Condition is Stable. - Discharge Instructions: Nausea and Vomiting, Adult, [id number]. - Medication Reconciliation Form, Thank You Letter, Antibiotic Education, Prescription Opioid Use form. - Follow up: Emergency Department; When: As needed; Reason: Worsening of condition. Follow up: Private Physician; When: 2 - 3 days; Reason: Recheck today's complaints, Continuance of care, Re-evaluation by your physician. Signatures: Dispatcher [employer] EDOH Eliz Jean, CODY-C CORPORATE RECYCLING MANAGER-Erika Hung, RN Gene Ureña MD MD rn Leal, Jahala, CECILIA RN jl7 Corrections: (The following items were deleted from the chart) 13:36 13:20 07/28/2018 13:20 Discharged to Home. Impression: Vomiting of , jl7 unspecified. Condition is Stable. Discharge Instructions: Nausea and Vomiting, Adult, [id number]. Forms are Medication Reconciliation Form, Thank You Letter, Antibiotic Education, Prescription Opioid Use. Follow up: Emergency Department; When: As needed; Reason: Worsening of condition. Follow up: Private Physician; When: 2 - 3 days; Reason: Recheck today's complaints, Continuance of care, Re-evaluation by your physician. kb
--- NOTE | 2018-07-28 13:21 | ER ---
Nurse's Notes [facility] Name: Jazmyn Barron Age: 27 yrs Sex: Female : 1990 Arrival Date: 07/28/2018 Time: 12:07 Bed 14 Private MD: Diagnosis: Vomiting of , unspecified Presentation: 07/28 12:10 Presenting complaint: Patient states: Reports blood streaking in emesis this AM x 2 aj episodes. Patient reports she is most bothered by the fact she can taste blood in her mouth. Transition of care: patient was not received from another setting of care. Onset of symptoms was July 28, 2018. Risk Assessment: Do you want to hurt yourself or someone else? Patient reports no desire to harm self or others. Initial Sepsis Screen: Does the patient meet any 2 criteria? No. Patient's initial sepsis screen is negative. Does the patient have a suspected source of infection? No. Patient's initial sepsis screen is negative. Care prior to arrival: None. 12:10 Method Of Arrival: Ambulatory 12:10 Acuity: TRISTON 3 aj Triage Assessment: 12:11 General: Appears in no apparent distress. comfortable, Behavior is calm, cooperative, aj appropriate for age. Pain: Denies pain. EENT: Reports nasal congestion nasal discharge. Neuro: Level of Consciousness is awake, alert, obeys commands, Oriented to person, place, time, situation, Appropriate for age. Respiratory: Airway is patent Respiratory effort is even, unlabored, Respiratory pattern is regular, symmetrical. GI: Reports vomiting. Derm: Skin is intact, is healthy with good turgor, Skin is pink, warm \T\ dry. normal. Historical: - Allergies: 12:11 No Known Drug Allergies; aj - Home Meds: 12:11 Vitamin 27-0.8 mg Oral tab 1 tab once daily [Active]; aj - PMHx: 12:11 intestinal infection; aj - PSHx: 12:11 Cholecystectomy; aj - Immunization history:: Adult Immunizations up to date. - Social history:: Smoking status: Patient/guardian denies using tobacco. - Ebola Screening: : Patient negative for fever greater than or equal to 101.5 degrees Fahrenheit, and additional compatible Ebola Virus Disease symptoms Patient denies exposure to infectious person Patient denies travel to an Ebola-affected area in the 21 days before illness onset No symptoms or risks identified at this time. Screenin:20 Abuse screen: Denies threats or abuse. Denies injuries from another. Nutritional jl7 screening: No deficits noted. Tuberculosis screening: No symptoms or risk factors identified. Fall Risk None identified. Assessment: 12:20 General: Appears in no apparent distress. uncomfortable, Behavior is calm, cooperative, jl7 appropriate for age. Pain: Denies pain. Neuro: Level of Consciousness is awake, alert, obeys commands, Oriented to person, place, time, situation. Cardiovascular: Patient's skin is warm and dry. Respiratory: Airway is patent Respiratory effort is even, unlabored, Respiratory pattern is regular, symmetrical. GI: Abdomen is round non-distended, Abd is soft and non tender X 4 quads. : No signs and/or symptoms were reported regarding the genitourinary system. Derm: Skin is pink, warm \T\ dry. 12:33 Reassessment: Pt given a cup of water for PO challenge at this time. jl7 13:00 Reassessment: Pt drank about half a cup of water and is able to keep it down. Provider jl7 notified. Vital Signs: 12:20 BP 111 / 74; Pulse 66; Resp 16 S; Temp 98(O); Pulse Ox 100% on R/A; Weight 93.44 kg jl7 (R); Height 4 ft. 10 in. (147.32 cm) (R); Pain 0/10; 12:20 Body Mass Index 43.05 (93.44 kg, 147.32 cm) jl7 ED Course: 12:07 Patient arrived in ED. mr 12:08 Eliz Jean FNP-C is [facility]. kb 12:08 Gene Briscoe MD is Attending Physician. kb 12:11 Triage completed. aj 12:11 Arm band placed on right wrist. Patient placed in an exam room. aj 12:18 Gemini Cho, CECILIA is Primary Nurse. jl7 12:20 Patient has correct armband on for positive identification. Bed in low position. Call jl7 light in reach. Side rails up X 1. Pulse ox on. NIBP on. 13:35 No provider procedures requiring assistance completed. Patient did not have IV access jl7 during this emergency room visit. Administered Medications: No medications were administered Outcome: 13:20 Discharge ordered by MD. kb 13:35 Discharged to home ambulatory. jl7 13:35 Condition: stable 13:35 Discharge instructions given to patient, Instructed on discharge instructions, follow up and referral plans. Demonstrated understanding of instructions, follow-up care. 13:36 Patient left the ED. jl7 Signatures: Eliz Jean, TOBACCO BALER-C TOBACCO BALER-Erika Hung RN RN aj Rivera, Mary mr Leal, Jahala, RN RN jl7 Corrections: (The following items were deleted from the chart) 12:12 12:10 Acuity: TRISTON 4 heriberto louis
[2018-07-28 13:53] VITALS: BP 111/74; TEMP 98; O2SAT 100
[2018-07-28 15:20] LABS: Urine Blood NEGATIVE (NEG); Urine Glucose NEGATIVE (NEG); Urine Protein NEGATIVE (NEG); Urine Specific Gravity 1.015 (1.005-1.030)
== END 2018-07-28 13:36 | disposition home or self-care (01) ==
LOC: ER 12:05
DX: O21.9 Vomiting of pregnancy, unspecified (principal); Z3A.09 9 weeks gestation of pregnancy
CPT/HCPCS: 81003; 81025; 99283

== ENCOUNTER 2019-02-07 21:21 | Inpatient (IN) | payer MEDICAID, OTHER, SELFPAY ==
[2019-02-07] MEDS ORDERED: BUTORPHANOL 1 MG/ML INJ IV PRN (21:46)
[2019-02-07] MEDS ORDERED: METHYLERGONOVINE 0.2MG/ML AMP IM PRN (21:46)
[2019-02-07] MEDS ORDERED: Ringers Lactate 1,000 ML IV PRN (21:46)
[2019-02-07] MEDS ORDERED: PROMETHAZINE 25 MG/ML VIAL IV PRN (21:46)
[2019-02-07] MEDS ORDERED: MEPERIDINE HCL 25 MG/0.5 ML IV PRN (21:46)
[2019-02-07] MEDS ORDERED: PENICILLIN 5 MU in NA CHLORIDE 0.9% 100 ML IV ONE (21:58)
[2019-02-07] MEDS ORDERED: Ringers Lactate 1,000 ML IV SCH (22:00)
[2019-02-07 22:12] LABS: RPR Titer ND
[2019-02-07 22:17] LABS: Absolute Lymphocytes (CBC) 2.1 K/uL (0.7-4.9); Absolute Monocytes 0.7 K/uL (0.1-1.3); Absolute Neutrophil 12.3 K/uL (1.8-8.0); Basophils % 0.6 % (0-1.3); Eosinophils % 0.3 % (0-4.4); Hematocrit 35.5 % (36.0-45.0); MPV 9.9 fL (7.6-11.3); Monocytes % 4.5 % (3.3-12.3); RBC Red Blood Cell Count 3.87 M/uL (3.86-4.86)
[2019-02-07 22:27] LABS: Urine Appearance CLEAR; Urine Bilirubin NEGATIVE (NEG); Urine Blood TRACE (NEG); Urine Color YELLOW; Urine Glucose NEGATIVE (NEG); Urine Protein NEGATIVE (NEG)
[2019-02-07] MEDS ORDERED: ROPIVACAINE HCL 100 ML IV PRN (22:47)
[2019-02-07] MEDS ORDERED: ROPIVACAINE HCL 0.2% 20ML AMP IV ONE (22:48)
[2019-02-07 23:01] LABS: Urine Microscopic Reflex ORDER UMIC
[2019-02-07 23:02] LABS: Urine Bacteria <20 /HPF (<20); Urine Culture Reflex Order REFLEXED; Urine Mucus HEAVY /HPF (NONE SEEN); Urine RBC <5 /HPF (NONE SEEN)
[2019-02-07 23:05] LABS: RPR (Rapid Plasma Reagin) NON-REACT (NON-REACT)
[2019-02-07] MEDS ORDERED: FENTANYL CITR 100 MCG/2 ML IV ONE (23:10)
[2019-02-07] MEDS ORDERED: OXYTOCIN/LR 20 UNIT/1,000 ML BAG IV ONE (23:25)
[2019-02-07] MEDS ORDERED: FENTANYL CITR 100 MCG/2 ML ONE (23:27)
[2019-02-08 00:16] VITALS: BMI 47.6
[2019-02-08] MEDS ORDERED: PENICILLIN 2.5 MU in NA CHLORIDE 0.9% 100 ML IV SCH (01:00)
[2019-02-08] MEDS ORDERED: Oxycodone HCl/Acetaminophen 1 TAB TAB PO PRN ×2 (01:31)
[2019-02-08] MEDS ORDERED: IBUPROFEN 200 MG TAB PO PRN (01:31)
[2019-02-08] MEDS ORDERED: DIPHENHYDRAMINE 25 MG TAB/CAP PO PRN (01:31)
[2019-02-08] MEDS ORDERED: ACETAMINOPHEN 500 MG TAB PO PRN (01:31)
[2019-02-08] MEDS ORDERED: BISACODYL 10 MG RECTAL SUPP RECT PRN (01:31)
[2019-02-08] MEDS ORDERED: DOCUSATE NA/SENNA CONC 1 TAB PO PRN (01:31)
[2019-02-08] MEDS ORDERED: OXYTOCIN/LR 20 UNIT/1,000 ML BAG IV SCH (02:00)
--- NOTE | 2019-02-08 03:41 | PN ---
Antibiotic is now in. The patient says she thinks her bag of water has broken. Checked, she is defi nitely leaking but still has 1 layer of amniotic fluid at least left as she has broken very light mec onium to fluid. Baby looked good on the monitor. The patient says that she has to go to urinate. She is about 8 cm. We will help her to the restroom very quickly. She may decide if she w ants an epidural but first she wants to go to the restroom and then we will evaluate her status. SHER/MONICA Voice ID: [id number] Report ID: [id number]
--- NOTE | 2019-02-08 05:29 | PN ---
The patient has had her epidural. She is now about 8 to 8.5, 100%, 0 station. Hopefully, we will se e more rapid progress and the epidural slow her down. SHER/MONICA Voice ID: [id number] Report ID: [id number]
--- NOTE | 2019-02-08 08:45 | PREOPHP ---
Date of Admission: 02/07/2019 Jazmyn Tripp is a 28-year-old, 2, para 1, 37 weeks and 2 days according to the patient. She has been seen by [facility], says her first was uneventful, says this has been une ventful. She is not aware of her blood type or strep status. This was discussed. She decided to ta ke prophylaxis, although she is going rapidly and whether or not, this will do any good remains to be seen. She has an IV started. Baby looks very good. She is in good control and wants to go without any epidural, possibly even no analgesics IV. She is 6.5 cm, 100% effaced, 0 to -1 station. Bulgin g membranes. Baby is vertex. Full admission talk given. We are waiting for the records from [facility], but may not get those until after her delivery. At this point, we have essentially term pregnan cy, rapidly advancing labor, and prophylaxis is to be started as soon as antibiotics is available. SHER/MONICA Voice ID: [id number]
--- NOTE | 2019-02-08 12:02 | PN ---
The patient is doing well. Afebrile, ambulating, voiding. Lochia is normal. We have discovered fro m [facility] records, she is Rh positive. Her rubella status is unknown. Therefore patient will be offere d rubella immunization. Full dismissal instructions, to report any temperature elevation of 100 degr ees or greater, severe pain, heavy bleeding, or any other type of abnormalities. Offered Tdap admini stration, she does not know her status. We will be observing until tomorrow morning. At that point we will go over the dismissal instructions again. Right now, she has no problems or questions. SHER/MONICA Voice ID: [id number] Report ID: [id number]
--- NOTE | 2019-02-08 12:42 | PN ---
A 28-year-old, 2, para 1, 37 weeks 2 days, according the patient, followed at [facility]. Apparent ly decided to drop-in here for delivery, 5 cm, bulging membranes. 90% effaced on admission. Had Sta dol IV 1 time, Phenergan 25 mg IM. Beta strep status is unknown. The patient requested penicillin p rophylaxis, at least 1 dose was given during the labor. Epidural anesthesia was established at appro ximately 7 cm, rupture of membranes, normal to very light meconium noted. Second stage of about 15 t o 20 minutes. Spontaneous vaginal delivery of 7 pounds, 7 ounce female. Small left medial lateral episiotomy more of a first to early second-degree, repaired with 2-0 chromic. Apgars 7 and 9. Placenta delivered [facility], noted to be intact and normal. 300 cc or less blood loss. Blood type is unknown a t this point. Drop-in lab will be performed. The patient tolerated all procedures well. Final Diagnoses: Term intrauterine . As best as can be determined 37 weeks 2 days, spontan eous labor, vaginal delivery, epidural anesthesia. Nuchal cord x1. SHER/RUKHSANAL Voice ID: [id number] Report ID: [id number]
[2019-02-09 08:12] VITALS: BP 126/46; TEMP 97.2
[2019-02-09] MEDS ORDERED: Tdap (Diph,Pertuss(Acell),Tet Vac) 0.5 ML SYR IMVAC ONE (09:16)
[2019-02-09] MEDS ORDERED: MEASLES,MUMPS,RUBELLA VAC 0.5ML SQVAC ONE (09:16)
--- NOTE | 2019-02-10 04:08 | DS ---
Date of Discharge: 02/09/2019 Hospital Course: A 28-year-old, 2, para 1, at 37 weeks 2 days, as best estimates [facility] drop-i n patient, who delivered uneventfully a 7 pounds 7 ounce female, small left lateral episiotomy repair ed with 2-0 chromic, 300 cc blood loss with Kitchen delivery of the placenta. Rh positive. Rubella status is unknown. She does not know whether she has had her Tdap immunization. She had an epidural . She has had no post epidural problems. Dismissal Instructions: She should report any temperature elevation of 100 degrees or greater, sever e pain, heavy bleeding, or any other type of abnormalities. She is offered Tdap administration and r ubella immunizations since status is unknown. She had beta strep prophylaxis during her labor. She was admitted at 5 cm, bulging membranes, 90% effaced. Final Diagnoses: Intrauterine gestation, 37 weeks 2 days, vaginal delivery, epidural anesthesia. Td ap and rubella immunizations suggested and offered. SHER/MONICA Voice ID: [id number] Report ID: [id number]
[2019-02-13 05:22] LABS: HBsAG Nonreactive (Nonreactive)
--- NOTE | 2019-02-16 09:35 | OP ---
Surgeon: Sidney Treadwell MD A 28-year-old, 2, para 1, 37 weeks 2 days, [facility] patient, dropped in, in active labor. Rapidl y went to complete. Had epidural anesthesia instituted. Uneventfully second stage, 7-pound 7-ounce female. Small left lateral episiotomy repaired with 2-0 chromic, 300 cc blood loss. Cornelio de la rosa of the placenta, inspected and noted to be intact and normal. Rh positive, rubella immune. Mu ated all procedures well. Final Diagnoses: Term intrauterine , 37 weeks 2 days, vaginal delivery, epidural anesthesia . SHER/MONICA Voice ID: [id number] Report ID: [id number]
--- NOTE | 2019-02-17 10:09 | OP ---
Surgeon: Sidney Treadwell MD A 28-year-old, 2, para 1, 37 weeks 2 days, followed antepartum [facility] without complications, ad mitted to our Labor and Delivery Unit in labor. Had an uneventful first stage of labor. Epidural an esthesia was established at her request. She delivered after a short second stage a 7-pound 7-ounce female. A small left lateral episiotomy repair with 2-0 chromic. Schultze delivery of the placenta, which was inspected and noted to be intact and normal. A 300 cc or less blood loss. Rh positive. Subsequently thought to be immune to Rubella. Tolerated all procedures well. Final Diagnoses: Term intrauterine 37 weeks 2 days. Drop-in delivery. Epidural anesthesi a. Drop-in lab ordered. SHER/MONICA Voice ID: [id number] Report ID: [id number]
== END 2019-02-09 10:45 | disposition home or self-care (01) | DRG 807 ==
LOC: L&D 21:21 → 2ND-WC 21:55
PROVIDERS: ADMIT Specialist; ATTEND Specialist
PROC: 10E0XZZ Delivery of Products of Conception, External Approach (ICD-10-PCS; principal; 2019-02-07)
PROC: 0W8NXZZ Division of Female Perineum, External Approach (ICD-10-PCS; 2019-02-07)
DX: O69.81X0 Labor and delivery complicated by cord around neck, without compression, not applicable or unspecified (principal); Z37.0 Single live birth; Z3A.37 37 weeks gestation of pregnancy; O77.0 Labor and delivery complicated by meconium in amniotic fluid; O62.3 Precipitate labor
CPT/HCPCS: 36415; 81003; 81015; 85025; 86592; 86850; 86900; 86901; 87086; 87088; 87340; 90707; 90715; J0595; J2175; J2210; J2550; J2590; J2795; J3010

== ENCOUNTER 2019-09-28 23:51 | Emergency (ER) | payer OTHER ==
--- NOTE | 2019-09-29 02:18 | EDPHYS ---
Physician Documentation [facility] Name: Jazmyn Barron Age: 28 yrs Sex: Female : 1990 Arrival Date: 09/28/2019 Time: 23:57 Bed 17 Private MD: ED Physician zOzy Lei HPI: 09/29 00:32 This 28 yrs old Female presents to ER via Ambulatory with complaints of Low kb Back Pain. 00:33 The patient complains of pain in the left flank and right flank. The pain radiates to kb the abdomen. Onset: The symptoms/episode began/occurred 3 day(s) ago. Modifying factors: The symptoms are alleviated by nothing. the symptoms are aggravated by nothing. Associated signs and symptoms: The patient has no apparent associated signs or symptoms. Severity of pain: At its worst the pain was mild moderate in the emergency department the pain is unchanged. The patient has not experienced similar symptoms in the past. The patient has not recently seen a physician. PER DIEM PHYSICAL THERAPIST: 00:14 LMP 09/06/2019 aa1 Historical: - Allergies: 00:14 No Known Allergies; aa1 - Home Meds: 00:14 None [Active]; aa1 - PMHx: 00:14 intestinal infection; aa1 - PSHx: 00:14 Cholecystectomy; aa1 - Immunization history:: Flu vaccine is not up to date. - Social history:: Smoking status: Patient/guardian denies using tobacco. - Ebola Screening: : No symptoms or risks identified at this time. ROS: 00:31 Constitutional: Negative for fever, chills, and weight loss, Neck: Negative for injury, kb pain, and swelling, Cardiovascular: Negative for chest pain, palpitations, and edema, Respiratory: Negative for shortness of breath, cough, wheezing, and pleuritic chest pain, : Negative for injury, bleeding, discharge, and swelling, MS/Extremity: Negative for injury and deformity, Skin: Negative for injury, rash, and discoloration, Neuro: Negative for headache, weakness, numbness, tingling, and seizure. 00:31 Abdomen/GI: Positive for abdominal pain, Negative for nausea, vomiting, and diarrhea. 00:31 Back: Positive for flank pain, bilaterally. Exam: 00:31 Constitutional: This is a well developed, well nourished patient who is awake, alert, kb and in no acute distress. Head/Face: Normocephalic, atraumatic. Neck: Trachea midline, no thyromegaly or masses palpated, and no cervical lymphadenopathy. Supple, full range of motion without nuchal rigidity, or vertebral point tenderness. No Meningismus. Chest/axilla: Normal chest wall appearance and motion. Nontender with no deformity. No lesions are appreciated. Cardiovascular: Regular rate and rhythm with a normal S1 and S2. No gallops, murmurs, or rubs. Normal PMI, no JVD. No pulse deficits. Respiratory: Lungs have equal breath sounds bilaterally, clear to auscultation and percussion. No rales, rhonchi or wheezes noted. No increased work of breathing, no retractions or nasal flaring. Skin: Warm, dry with normal turgor. Normal color with no rashes, no lesions, and no evidence of cellulitis. MS/ Extremity: Pulses equal, no cyanosis. Neurovascular intact. Full, normal range of motion. Neuro: Awake and alert, GCS 15, oriented to person, place, time, and situation. Cranial nerves II-XII grossly intact. Motor strength 5/5 in all extremities. Sensory grossly intact. Cerebellar exam normal. Normal gait. 00:31 Abdomen/GI: Inspection: obese Bowel sounds: normal, in all quadrants, Palpation: soft, in all quadrants, mild abdominal tenderness, in the suprapubic area, right lower quadrant and left lower quadrant. Vital Signs: 00:14 BP 114 / 92; Pulse 78; Resp 18; Temp 97.2; Pulse Ox 100% on R/A; Weight 97.52 kg; aa1 Height 4 ft. 11 in. (149.86 cm); Pain 9/10; 02:24 BP 103 / 50; Pulse 75; Resp 18 S; Pulse Ox 100% on R/A; jd3 00:14 Body Mass Index 43.42 (97.52 kg, 149.86 cm) aa1 MDM: 09/28 23:59 Patient medically screened. kb 09/29 00:31 Data reviewed: vital signs, nurses notes. Data interpreted: Pulse oximetry: on room air kb is 100 %. Interpretation: normal. 02:16 Counseling: I had a detailed discussion with the patient and/or guardian regarding: the kb historical points, exam findings, and any diagnostic results supporting the discharge/admit diagnosis, lab results, radiology results, the need for outpatient follow up, a family practitioner, to return to the emergency department if symptoms worsen or persist or if there are any questions or concerns that arise at home. 09/29 00:12 Order name: Urine Dipstick--Ancillary (enter results) 6 09/29 00:12 Order name: Urine --Ancillary (enter results) 6 09/29 00:03 Order name: Urine Dipstick-Ancillary (obtain specimen); Complete Time: 00:35 kb 09/29 00:11 Order name: CT Stone Protocol 09/29 00:47 Order name: Stone Protocol EDIA Administered Medications: No medications were administered Disposition: 06:54 Co-signature as Attending Physician, Ozzy Lei MD I agree with the assessment and tw4 plan of care. Disposition: 09/29/19 02:16 Discharged to Home. Impression: Lower abdominal pain, unspecified, Flank pain. - Condition is Stable. - Discharge Instructions: Abdominal Pain, Adult, [id number], Flank Pain, [id number]. - Prescriptions for Diclofenac Sodium 75 mg Oral Tablet, Delayed Release (E.C.) - take 1 tablet by ORAL route 2 times per day As needed; 30 tablet. - Medication Reconciliation Form, Thank You Letter, Antibiotic Education, Prescription Opioid Use form. - Follow up: Emergency Department; When: As needed; Reason: Worsening of condition. Follow up: Private Physician; When: 2 - 3 days; Reason: Recheck today's complaints, Continuance of care, Re-evaluation by your physician. Signatures: Dispatcher [employer] EDIA Eliz Jean FNP-C FNP-Ana Ma RN RN aa1 Eduardo Cochran RN RN [id number] Ozzy Lei MD MD tw4 Corrections: (The following items were deleted from the chart) 02:25 02:16 09/29/2019 02:16 Discharged to Home. Impression: Lower abdominal pain, jd3 unspecified; Flank pain. Condition is Stable. Forms are Medication Reconciliation Form, Thank You Letter, Antibiotic Education, Prescription Opioid Use. Follow up: Emergency Department; When: As needed; Reason: Worsening of condition. Follow up: Private Physician; When: 2 - 3 days; Reason: Recheck today's complaints, Continuance of care, Re-evaluation by your physician. kb
--- NOTE | 2019-09-29 02:18 | ER ---
Nurse's Notes [facility] Name: Jazmyn Barron Age: 28 yrs Sex: Female : 1990 Arrival Date: 09/28/2019 Time: 23:57 Bed 17 [facility] MD: Diagnosis: Lower abdominal pain, unspecified;Flank pain Presentation: 09/29 00:10 Presenting complaint: Patient states: low back pain since yesterday that radiates to aa1 suprapubic area. C/O nausea. Denies fever or dysuria. Transition of care: patient was not received from another setting of care. Onset of symptoms was September 27, 2019. Risk Assessment: Do you want to hurt yourself or someone else? Patient reports no desire to harm self or others. Initial Sepsis Screen: Does the patient meet any 2 criteria? Does the patient have a suspected source of infection? Yes: Acute abdominal pain. Care prior to arrival: None. 00:10 Method Of Arrival: Ambulatory aa1 00:10 Method Of Arrival: Ambulatory aa1 00:10 Acuity: TRISTON 3 aa1 Triage Assessment: 00:14 General: Appears in no apparent distress. comfortable, Behavior is calm, cooperative, aa1 appropriate for age. 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 - Social history:: Smoking status: Patient/guardian denies using tobacco. - Ebola Screening: : No symptoms or risks identified at this time. Screenin:06 Abuse screen: Denies threats or abuse. Nutritional screening: No deficits noted. jd3 Tuberculosis screening: No symptoms or risk factors identified. Fall Risk Ambulatory Aid- None/Bed Rest/Nurse Assist (0 pts). Gait- Normal/Bed Rest/Wheelchair (0 pts) Mental Status- Oriented to own ability (0 pts). Total Reeves Fall Scale indicates No Risk (0-24 pts). Assessment: 00:05 General: Appears in no apparent distress. uncomfortable, Behavior is calm, cooperative, jd3 appropriate for age. Pain: Complains of pain in low back area Pain radiates to abdomen Quality of pain is described as aching, tender. Neuro: Level of Consciousness is awake, alert, obeys commands, Oriented to person, place, time, situation. Cardiovascular: Denies chest pain, Capillary refill < 3 seconds Patient's skin is warm and dry. Respiratory: Airway is patent Respiratory effort is even, unlabored, Respiratory pattern is regular, symmetrical, Denies cough, shortness of breath. GI: Abdomen is round non-distended, Abd is soft and non tender X 4 quads. Reports nausea, Patient currently denies vomiting. : No signs and/or symptoms were reported regarding the genitourinary system. EENT: No signs and/or symptoms were reported regarding the EENT system. Derm: Skin is intact, Skin is dry, Skin is normal, Skin temperature is warm. Musculoskeletal: Circulation, motion, and sensation intact. Range of motion: intact in all extremities. 00:59 Reassessment: Patient appears in no apparent distress at this time. No changes from jd3 previously documented assessment. Patient and/or family updated on plan of care and expected duration. Pain level reassessed. Patient is alert, oriented x 3, equal unlabored respirations, skin warm/dry/pink. awaiting CT and results. 01:57 Reassessment: Patient appears in no apparent distress at this time. Patient and/or jd3 family updated on plan of care and expected duration. Pain level reassessed. Patient is alert, oriented x 3, equal unlabored respirations, skin warm/dry/pink. awaiting CT result. 02:25 Reassessment: Patient appears in no apparent distress at this time. Patient and/or jd3 family updated on plan of care and expected duration. Pain level reassessed. Patient is alert, oriented x 3, equal unlabored respirations, skin warm/dry/pink. pt reported understanding of discharge instructions. even and steady gait upon discharge. Vital Signs: 00:14 BP 114 / 92; Pulse 78; Resp 18; Temp 97.2; Pulse Ox 100% on R/A; Weight 97.52 kg; aa1 Height 4 ft. 11 in. (149.86 cm); Pain 9/10; 02:24 BP 103 / 50; Pulse 75; Resp 18 S; Pulse Ox 100% on R/A; jd3 00:14 Body Mass Index 43.42 (97.52 kg, 149.86 cm) aa1 ED Course: 09/28 23:57 Patient arrived in ED. cl3 23:59 Eliz Jean FNP-C is [facility]. kb 23:59 Ozzy Lei MD is Attending Physician. kb 09/29 00:05 Eduardo Cochran, RN is Primary Nurse. jd3 00:06 Patient has correct armband on for positive identification. Bed in low position. Call jd3 light in reach. Side rails up X 1. Adult w/ patient. 00:13 Triage completed. aa1 00:14 Arm band placed on right wrist. aa1 01:26 Stone Protocol In Process Unspecified. EDMS 02:24 No provider procedures requiring assistance completed. Patient did not have IV access jd3 during this emergency room visit. Administered Medications: No medications were administered Outcome: 02:16 Discharge ordered by . kb 02:24 Discharged to home ambulatory, with family. jd3 02:24 Condition: stable 02:24 Discharge instructions given to patient, Instructed on discharge instructions, follow up and referral plans. medication usage, Demonstrated understanding of instructions, follow-up care, medications, Prescriptions given X 1. 02:25 Patient left the ED. jd3 Signatures: Dispatcher [employer] EDMI Eliz Jean FNP-C FNP-Ckb Autenrieth, Alissa, RN RN aa1 Eduardo Cochran, RN RN Vanita Rosales cl3
[2019-09-29 03:17] VITALS: BP 103/50; O2SAT 100
[2019-09-29 03:19] VITALS: TEMP 97.2
[2019-09-29 09:16] LABS: Urine Blood TRACE (NEG); Urine Glucose NEGATIVE (NEG); Urine Protein NEGATIVE (NEG)
--- NOTE | 2019-09-29 11:58 | RAD REPORT ---
EXAM DESCRIPTION: CT - Stone Protocol - 09/29/2019 1:59 am CLINICAL HISTORY: Low back pain radiating to suprapubic area. COMPARISON: None. TECHNIQUE: Axial unenhanced CT imaging of the abdomen and pelvis performed. Reformatted coronal and sagittal images reviewed. A dose reduction technique was utilized with automated exposure control according to patient size. FINDINGS: Clear lung bases. Heart is normal in size. Normal liver. Gallbladder has been resected. Normal spleen, pancreas, adrenal glands, and kidneys. No rmal aorta and inferior vena cava caliber. No adenopathy. Normal stomach. Small bowel loops appear normal. Normal appendix identified in the right lower quadra nt. A few scattered colonic diverticula are present without diverticulitis. No mesenteric edema. No a scites or free air. Tiny fat-containing umbilical hernia. Normal bladder. Normal uterus and ovaries. No pelvic free fluid. Mild lower thoracic and lumbosacral spondylosis. Intact bony pelvis. Normal hips. IMPRESSION: 1. No acute finding within the abdomen or pelvis. 2. Mild colonic diverticulosis. No diverticulitis. 3. Post cholecystectomy. 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 The interpreting radiologist is f ully responsible for the content of the report.
== END 2019-09-29 02:25 | disposition home or self-care (01) ==
LOC: ER 23:51
DX: R10.30 Lower abdominal pain, unspecified (principal)
CPT/HCPCS: 74176; 76377; 81003; 81025; 99283

== ENCOUNTER 2019-10-04 20:49 | Emergency (ER) | payer OTHER ==
--- NOTE | 2019-10-04 22:14 | ER ---
Nurse's Notes [facility] Name: Jazmyn Barron Age: 28 yrs Sex: Female : 1990 Arrival Date: 10/04/2019 Time: 20:51 Bed 10 Private MD: Diagnosis: Urinary tract infection, site not specified Presentation: 10/04 21:20 Presenting complaint: Patient states: Reports pelvic pain since two days ago, painful ea urination that started today. Transition of care: patient was not received from another setting of care. Onset of symptoms was October 04, 2019. Risk Assessment: Do you want to hurt yourself or someone else? Patient reports no desire to harm self or others. Initial Sepsis Screen: Does the patient meet any 2 criteria? HR > 90 bpm. Does the patient have a suspected source of infection? Yes: Dysuria/Frequency/Urgency/UTI. Care prior to arrival: None. 21:20 Method Of Arrival: Ambulatory ea 21:20 Acuity: TRISTON 3 ea Triage Assessment: 21:25 GI: Patient currently denies diarrhea, nausea, vomiting. 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 - Social history:: Smoking status: Patient/guardian denies using tobacco. - Ebola Screening: : Patient denies travel to an Ebola-affected area in the 21 days before illness onset. Screenin:24 Abuse screen: Denies threats or abuse. Nutritional screening: No deficits noted. ea Tuberculosis screening: No symptoms or risk factors identified. Fall Risk None identified. Assessment: 21:53 General: Appears in no apparent distress. Behavior is calm, cooperative. Pain: bb Complains of pain in suprapubic area. Neuro: Level of Consciousness is awake, alert, obeys commands, Oriented to person, place, time, situation. Cardiovascular: No deficits noted. Respiratory: Respiratory effort is even, unlabored, Respiratory pattern is regular. GI: Abdomen is obese, Bowel sounds present X 4 quads. Abd is soft and non tender X 4 quads. Abdomen is tender to palpation in suprapubic area. : Reports burning with urination. Derm: Skin is pink, warm \T\ dry. Musculoskeletal: Circulation, motion, and sensation intact. 23:20 Reassessment: Patient is alert, oriented x 3, equal unlabored respirations, skin bb warm/dry/pink. pt verbalized understanding of and agrees to plan of care discharge instructions given pt ambulated with steady gait to exit. Vital Signs: 21:22 Pulse 72; Resp 18; Temp 97.7; Pulse Ox 100% ; Weight 97.98 kg; Height 4 ft. 10 in. ea (147.32 cm); 21:28 BP 104 / 56; ea 22:54 BP 109 / 69; Pulse 80; Resp 18 S; Temp 98(O); jp3 21:22 Body Mass Index 45.14 (97.98 kg, 147.32 cm) ea ED Course: 20:51 Patient arrived in ED. as 21:10 Marychuy Irwin FNP-C is [facility]. snw 21:10 Cesario Shaffer MD is Attending Physician. snw 21:22 Triage completed. ea 21:25 Arm band placed on left wrist. ea 21:53 Patient has correct armband on for positive identification. Call light in reach. bb 23:21 No provider procedures requiring assistance completed. Patient did not have IV access bb during this emergency room visit. Administered Medications: 22:16 Drug: Macrobid 100 mg Route: PO; bb 23:20 Follow up: Response: No adverse reaction bb 22:16 Drug: Pyridium 200 mg Route: PO; bb 23:20 Follow up: Response: No adverse reaction bb Outcome: 22:13 Discharge ordered by . snw 23:21 Discharged to home ambulatory. bb 23:21 Condition: stable 23:21 Discharge instructions given to patient, Instructed on discharge instructions, follow up and referral plans. medication usage, Demonstrated understanding of instructions, follow-up care, medications, Prescriptions given X 3. 23:21 Patient left the ED. bb Signatures: Marychuy Irwin FNP-C SILVER SOLDERER-Lucy Rolle Brenda, RN RN Christen Dukes, RN RN Kvng Bonilla jp3
--- NOTE | 2019-10-04 22:15 | EDPHYS ---
Physician Documentation [facility] Name: Jazmyn Barron Age: 28 yrs Sex: Female : 1990 Arrival Date: 10/04/2019 Time: 20:51 Bed 10 Private MD: ED Physician Cesario Shaffer HPI: 10/04 22:38 This 28 yrs old Female presents to ER via Ambulatory with complaints of snw Abdominal Pain. 22:38 The patient presents with abdominal pain suprapubic area. Onset: The symptoms/episode snw began/occurred suddenly, 3 day(s) ago, and became persistent. The symptoms do not radiate. Associated signs and symptoms: Pertinent positives: dysuria, Pertinent negatives: nausea, vomiting, and diarrhea, fever, vaginal discharge. The symptoms are described as vague. Severity of pain: At its worst the pain was moderate. It is unknown whether or not the patient has had similar symptoms in the past. It is unknown whether or not the patient has recently seen a physician. 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 - Social history:: Smoking status: Patient/guardian denies using tobacco. - Ebola Screening: : Patient denies travel to an Ebola-affected area in the 21 days before illness onset. ROS: 22:36 Constitutional: Negative for fever, chills, and weight loss, Eyes: Negative for injury, snw pain, redness, and discharge, ENT: Negative for injury, pain, and discharge, Neck: Negative for injury, pain, and swelling, Cardiovascular: Negative for chest pain, palpitations, and edema, Respiratory: Negative for shortness of breath, cough, wheezing, and pleuritic chest pain, Abdomen/GI: Negative for abdominal pain, nausea, vomiting, diarrhea, and constipation, Back: Negative for injury and pain, MS/Extremity: Negative for injury and deformity, Skin: Negative for injury, rash, and discoloration, Neuro: Negative for headache, weakness, numbness, tingling, and seizure. 22:36 : Positive for urinary symptoms, burning with urination, of the groin, Negative for hematuria, pelvic pain, foul smelling urine, vaginal bleeding, vaginal discharge, vaginal itching, menstrual abnormality. Exam: 22:36 Constitutional: This is a well developed, well nourished patient who is awake, alert, snw and in no acute distress. Head/Face: Normocephalic, atraumatic. Eyes: Pupils equal round and reactive to light, extra-ocular motions intact. Lids and lashes normal. Conjunctiva and sclera are non-icteric and not injected. Cornea within normal limits. Periorbital areas with no swelling, redness, or edema. ENT: Nares patent. No nasal discharge, no septal abnormalities noted. Tympanic membranes are normal and external auditory canals are clear. Oropharynx with no redness, swelling, or masses, exudates, or evidence of obstruction, uvula midline. Mucous membranes moist. Neck: Trachea midline, no thyromegaly or masses palpated, and no cervical lymphadenopathy. Supple, full range of motion without nuchal rigidity, or vertebral point tenderness. No Meningismus. Chest/axilla: Normal chest wall appearance and motion. Nontender with no deformity. No lesions are appreciated. Cardiovascular: Regular rate and rhythm with a normal S1 and S2. No gallops, murmurs, or rubs. Normal PMI, no JVD. No pulse deficits. Respiratory: Lungs have equal breath sounds bilaterally, clear to auscultation and percussion. No rales, rhonchi or wheezes noted. No increased work of breathing, no retractions or nasal flaring. Back: No spinal tenderness. No costovertebral tenderness. Full range of motion. Skin: Warm, dry with normal turgor. Normal color with no rashes, no lesions, and no evidence of cellulitis. MS/ Extremity: Pulses equal, no cyanosis. Neurovascular intact. Full, normal range of motion. Neuro: Awake and alert, GCS 15, oriented to person, place, time, and situation. Cranial nerves II-XII grossly intact. Motor strength 5/5 in all extremities. Sensory grossly intact. Cerebellar exam normal. Normal gait. Psych: Awake, alert, with orientation to person, place and time. Behavior, mood, and affect are within normal limits. 22:36 Abdomen/GI: Inspection: abdomen appears normal, Bowel sounds: normal, Palpation: moderate abdominal tenderness, in the suprapubic area. Vital Signs: 21:22 Pulse 72; Resp 18; Temp 97.7; Pulse Ox 100% ; Weight 97.98 kg; Height 4 ft. 10 in. ea (147.32 cm); 21:28 BP 104 / 56; ea 22:54 BP 109 / 69; Pulse 80; Resp 18 S; Temp 98(O); jp3 21:22 Body Mass Index 45.14 (97.98 kg, 147.32 cm) ea MDM: 21:48 Patient medically screened. snw 22:37 Data reviewed: vital signs, nurses notes. Data interpreted: Pulse oximetry: on room air snw is 100 %. Interpretation: normal. Counseling: I had a detailed discussion with the patient and/or guardian regarding: the historical points, exam findings, and any diagnostic results supporting the discharge/admit diagnosis, lab results, the need for outpatient follow up, to return to the emergency department if symptoms worsen or persist or if there are any questions or concerns that arise at home. Special discussion: Based on the history and exam findings, there is no indication for further emergent testing or inpatient evaluation. I discussed with the patient/guardian the need to see the primary care provider for further evaluation of the symptoms. 10/04 21:11 Order name: Urine Culture snw 10/04 21:11 Order name: Urine Microscopic Only; Complete Time: 23:03 snw 10/04 21:41 Order name: Urine Dipstick--Ancillary (enter results); Complete Time: 23:03 mw2 10/04 21:41 Order name: Urine --Ancillary (enter results); Complete Time: 23:03 mw2 10/04 21:11 Order name: Urine Test (obtain specimen); Complete Time: 21:41 snw 10/04 21:11 Order name: Urine Dipstick-Ancillary (obtain specimen); Complete Time: 21:41 snw Administered Medications: 22:16 Drug: Macrobid 100 mg Route: PO; bb 23:20 Follow up: Response: No adverse reaction bb 22:16 Drug: Pyridium 200 mg Route: PO; bb 23:20 Follow up: Response: No adverse reaction bb Disposition: 10/05 07:52 Co-signature as Attending Physician, Cesario Shaffer MD I agree with the assessment and sara plan of care. Disposition: 10/04/19 22:13 Discharged to Home. Impression: Urinary tract infection, site not specified. - Condition is Stable. - Discharge Instructions: Urinary Tract Infection, Adult, Rehydration, Adult. - Prescriptions for Pyridium 200 mg Oral Tablet - take 1 tablet by ORAL route every 8 hours for 3 days; 9 tablet. Macrobid 100 mg Oral Capsule - take 1 capsule by ORAL route every 12 hours for 10 days; 20 capsule. promethazine 25 mg Oral Tablet - take 1 tablet by ORAL route every 6 hours As needed; 20 tablet. - Work release form, Medication Reconciliation Form, Thank You Letter, Antibiotic Education, Prescription Opioid Use form. - Follow up: Private Physician; When: 5 - 6 days; Reason: Recheck today's complaints, Continuance of care, Re-evaluation by your physician. Follow up: Emergency Department; When: As needed; Reason: Worsening of condition. Signatures: Dispatcher [employer] EDMS Cesario Shaffer MD MD cha Therrien, Shelly, EDGE BRUSHER-C EDGE BRUSHER-Csnw Megan Major RN RN Christen Dukes RN RN ea Corrections: (The following items were deleted from the chart) 10/04 23:21 22:13 10/04/2019 22:13 Discharged to Home. Impression: Urinary tract infection, site bb not specified. Condition is Stable. Forms are Medication Reconciliation Form, Thank You Letter, Antibiotic Education, Prescription Opioid Use. Follow up: Private Physician; When: 5 - 6 days; Reason: Recheck today's complaints, Continuance of care, Re-evaluation by your physician. Follow up: Emergency Department; When: As needed; Reason: Worsening of condition. snw
[2019-10-04] MEDS ORDERED: NITROFURAN MACRO 100 MG CAP PO ONE (22:18)
[2019-10-04] MEDS ORDERED: PHENAZOPYRIDINE 100MG TAB PO ONE (22:18)
[2019-10-04 22:57] LABS: Urine Culture Reflex Order NOT NEEDED
[2019-10-04 23:01] LABS: Urine Bacteria <20 /HPF (<20); Urine RBC <5 /HPF (NONE SEEN)
[2019-10-04 23:01] LABS: Urine Blood TRACE (NEG); Urine Glucose NEGATIVE (NEG); Urine Protein NEGATIVE (NEG); Urine Specific Gravity 1.015 (1.005-1.030)
[2019-10-04 23:54] VITALS: O2SAT 100
[2019-10-04 23:57] VITALS: BP 109/69; TEMP 98
== END 2019-10-04 23:21 | disposition home or self-care (01) ==
LOC: ER 20:49
DX: N39.0 Urinary tract infection, site not specified (principal)
CPT/HCPCS: 81003; 81015; 81025; 87086; 87088; 99283

== ENCOUNTER 2019-10-20 18:02 | Emergency (ER) | payer OTHER ==
--- OUTSIDE RECORDS SUMMARY | 2019-10-20 18:03 | XMS REPORT ---
:1990 [facility] [address] [place] [address] [address] [place] [address] Care Team Providers Name Role Phone Unavailable Unavailable Unavailable Problems This patient has no known problems. Allergies, Adverse Reactions, Alerts This patient has no known allergies or adverse reactions. Medications This patient has no known medications.
[2019-10-20 20:02] LABS: Absolute Lymphocytes (CBC) 4.3 K/uL (0.7-4.9); Basophils % 1.2 % (0-1.3); Hematocrit 41.2 % (36.0-45.0); MPV 8.7 fL (7.6-11.3); RBC Red Blood Cell Count 4.51 M/uL (3.86-4.86)
[2019-10-20 20:43] LABS: ALT/SGPT 19 U/L (12-78); AST/SGOT 12 U/L (15-37); Albumin 3.4 g/dL (3.4-5.0); Alkaline Phosphatase 91 U/L (45-117); BUN Blood Urea Nitrogen 15 mg/dL (7-18); Bicarbonate 28 mmol/L (21-32); Bilirubin Direct < 0.1 mg/dL (0-0.2); Bilirubin Total 0.2 mg/dL (0.2-1.0); Glucose Level 86 mg/dL (74-106); Lipase 176 U/L (73-393); Potassium 3.7 mmol/L (3.5-5.1); Protein, Total 7.2 g/dL (6.4-8.2); Sodium Level 140 mmol/L (136-145)
[2019-10-20 20:46] LABS: HCG, Quantitative < 1 mIU/mL (1-3)
[2019-10-20 22:16] LABS: Urine Blood NEGATIVE (NEG); Urine Glucose NEGATIVE (NEG); Urine Protein NEGATIVE (NEG); Urine Specific Gravity 1.015 (1.005-1.030)
--- NOTE | 2019-10-20 23:14 | ER ---
Nurse's Notes [facility] Name: Jazmyn Barron Age: 28 yrs Sex: Female : 1990 Arrival Date: 10/20/2019 Time: 18:06 Bed 16 Private MD: Diagnosis: Abdominal and pelvic pain Presentation: 10/20 18:20 Presenting complaint: Patient states: lower abdominal pain and nausea that began 2-3 aa5 days ago. Denies vomiting and denies diarrhea. Transition of care: patient was not received from another setting of care. Onset of symptoms was October 2019. Risk Assessment: Do you want to hurt yourself or someone else? Patient reports no desire to harm self or others. Initial Sepsis Screen: Does the patient meet any 2 criteria? No. Patient's initial sepsis screen is negative. Does the patient have a suspected source of infection? No. Patient's initial sepsis screen is negative. Care prior to arrival: None. 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 - Social history:: Smoking status: Patient/guardian denies using tobacco. - Ebola Screening: : No symptoms or risks identified at this time. Screenin:42 Abuse screen: Denies threats or abuse. Denies injuries from another. Nutritional rv screening: No deficits noted. Tuberculosis screening: No symptoms or risk factors identified. Fall Risk None identified. Assessment: 21:41 General: Appears in no apparent distress. Behavior is calm, cooperative. Pain: rv Complains of pain in abdomen. Neuro: Level of Consciousness is awake, alert, obeys commands, Oriented to person, place, time, situation. Cardiovascular: Patient's skin is warm and dry. Respiratory: Airway is patent. GI: Bowel sounds present X 4 quads. Abd is soft and non tender X 4 quads. Derm: Skin is intact. Vital Signs: 18:23 BP 125 / 76; Pulse 86; Resp 16 S; Temp 97.7(TE); Pulse Ox 100% on R/A; Weight 113.4 kg aa5 (R); Height 4 ft. 10 in. (147.32 cm) (R); Pain 8/10; 19:30 BP 121 / 87; Pulse 86; Resp 18; Pulse Ox 100% on R/A; rv 20:30 BP 118 / 86; Pulse 81; Resp 16; Pulse Ox 100% ; rv 23:30 BP 124 / 78; Pulse 84; Resp 17; Pulse Ox 99% on R/A; rv 10/21 00:00 BP 121 / 76; Pulse 78; Resp 17; Pulse Ox 99% on R/A; rv 10/20 18:23 Body Mass Index 52.25 (113.40 kg, 147.32 cm) aa5 ED Course: 10/20 18:06 Patient arrived in ED. jg7 18:20 Arm band placed on. aa5 18:22 Triage completed. aa5 19:17 Broderick Howard MD is Attending Physician. kdr 19:32 Eldon Reid RN is Primary Nurse. rv 21:00 No provider procedures requiring assistance completed. Inserted saline lock: 20 gauge rv in left antecubital area, using aseptic technique. 21:42 Patient has correct armband on for positive identification. Pulse ox on. NIBP on. rv 21:53 CT Abd/Pelvis - IV Contrast Only In Process Unspecified. EDMS 10/21 00:16 IV discontinued, intact, bleeding controlled, No redness/swelling at site. Pressure rv dressing applied. Administered Medications: 10/20 23:43 Drug: TORadol - Ketorolac 15 mg Route: IVP; Site: left antecubital; rv 23:49 Follow up: Response: No adverse reaction rv 23:43 Drug: Zofran 4 mg Route: IVP; Site: left antecubital; rv 23:49 Follow up: Response: No adverse reaction rv 23:44 Drug: morphine 2 mg {Note: rass 0.} Route: IVP; Site: left antecubital; rv 23:50 Follow up: Response: No adverse reaction; Medication administered at discharge.; RASS: rv Alert and Calm (0) Outcome: 23:13 Discharge ordered by . kdr 10/21 00:16 Discharged to home ambulatory, with family. rv Condition: good Discharge instructions given to patient, Instructed on discharge instructions, follow up and referral plans. medication usage, Demonstrated understanding of instructions, follow-up care, medications, Prescriptions given X 3. 00:17 Patient left the ED. rv Signatures: Dispatcher [employer] EDMS Broderick Howard MD MD [facility] Laney Rios RN RN aa5 Eldon Reid RN RN rv Jen Fajardo jg7 Corrections: (The following items were deleted from the chart) 10/20 18:23 18:20 Presenting complaint: Patient states: lower abdominal pain and nausea that began aa5 2-3 days ago. aa5 18:24 18:23 BP 125 / 76; Pulse 86bpm; Resp 16bpm; Spontaneous; Pulse Ox 100% RA; Temp 97.7F aa5 Temporal; aa5
--- NOTE | 2019-10-20 23:14 | EDPHYS ---
Physician Documentation [facility] Name: Jazmyn Barron Age: 28 yrs Sex: Female : 1990 Arrival Date: 10/20/2019 Time: 18:06 Bed 16 Private MD: ED Physician Broderick Howard HPI: 10/20 20:13 This 28 yrs old Female presents to ER via Ambulatory with complaints of kdr Abdominal Pain, Nausea. 20:13 The patient presents to the emergency department with nausea, that is mild, abdominal kdr pain, of the suprapubic area. Onset: The symptoms/episode began/occurred gradually, 1 week(s) ago. Possible causes: unknown, . The symptoms are aggravated by nothing. The symptoms are alleviated by nothing. Associated signs and symptoms: Pertinent positives: abdominal pain, nausea, Pertinent negatives: belching, constipation, diarrhea, dysuria, fever, flatulence, GI bleeding, hematuria, vaginal discharge, vomiting. Severity of symptoms: At their worst the symptoms were mild moderate just prior to arrival, in the emergency department the symptoms are unchanged. The patient has not experienced similar symptoms in the past. The patient has not recently seen a physician. The patient had a brief period earlier this month - unusual but with negative home test. 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 - Social history:: Smoking status: Patient/guardian denies using tobacco. - Ebola Screening: : No symptoms or risks identified at this time. ROS: 20:13 Constitutional: Negative for fever, chills, and weight loss, Eyes: Negative for injury, kdr pain, redness, and discharge, Neck: Negative for injury, pain, and swelling, Cardiovascular: Negative for chest pain, palpitations, and edema, Respiratory: Negative for shortness of breath, cough, wheezing, and pleuritic chest pain, Back: Negative for injury and pain, MS/Extremity: Negative for injury and deformity, Skin: Negative for injury, rash, and discoloration, Neuro: Negative for headache, weakness, numbness, tingling, and seizure activity. Psych: Negative for depression, anxiety, suicide ideation, homicidal ideation, and hallucinations, Allergy/Immunology: Negative for hives, rash, and allergies, Endocrine: Negative for neck swelling, polydipsia, polyuria, polyphagia, and marked weight changes, Hematologic/Lymphatic: Negative for swollen nodes, abnormal bleeding, and unusual bruising. 20:13 Abdomen/GI: Positive for abdominal pain, nausea. Exam: 20:13 Constitutional: This is a well developed, well nourished patient who is awake, alert, kdr and in no acute distress. Head/Face: Normocephalic, atraumatic. Eyes: Pupils equal round and reactive to light, extra-ocular motions intact. Lids and lashes normal. Conjunctiva and sclera are non-icteric and not injected. Cornea within normal limits. Periorbital areas with no swelling, redness, or edema. Neck: Trachea midline, no thyromegaly or masses palpated, and no cervical lymphadenopathy. Supple, full range of motion without nuchal rigidity, or vertebral point tenderness. No Meningismus. Chest/axilla: Normal chest wall appearance and motion. Nontender with no deformity. No lesions are appreciated. Cardiovascular: Regular rate and rhythm with a normal S1 and S2. No gallops, murmurs, or rubs. Normal PMI, no JVD. No pulse deficits. Respiratory: Lungs have equal breath sounds bilaterally, clear to auscultation and percussion. No rales, rhonchi or wheezes noted. No increased work of breathing, no retractions or nasal flaring. Back: No spinal tenderness. No costovertebral tenderness. Full range of motion. Skin: Warm, dry with normal turgor. Normal color with no rashes, no lesions, and no evidence of cellulitis. MS/ Extremity: Pulses equal, no cyanosis. Neurovascular intact. Full, normal range of motion. Neuro: Awake and alert, GCS 15, oriented to person, place, time, and situation. Cranial nerves II-XII grossly intact. Motor strength 5/5 in all extremities. Sensory grossly intact. Cerebellar exam normal. Normal gait. Psych: Awake, alert, with orientation to person, place and time. Behavior, mood, and affect are within normal limits. 20:13 Abdomen/GI: Inspection: abdomen appears normal, obese Bowel sounds: active, all quadrants, Palpation: soft, mild abdominal tenderness, in the suprapubic area, mass, is not appreciated, rebound tenderness, is not appreciated. Vital Signs: 18:23 BP 125 / 76; Pulse 86; Resp 16 S; Temp 97.7(TE); Pulse Ox 100% on R/A; Weight 113.4 kg aa5 (R); Height 4 ft. 10 in. (147.32 cm) (R); Pain 8/10; 19:30 BP 121 / 87; Pulse 86; Resp 18; Pulse Ox 100% on R/A; rv 20:30 BP 118 / 86; Pulse 81; Resp 16; Pulse Ox 100% ; rv 23:30 BP 124 / 78; Pulse 84; Resp 17; Pulse Ox 99% on R/A; rv 10/21 00:00 BP 121 / 76; Pulse 78; Resp 17; Pulse Ox 99% on R/A; rv 10/20 18:23 Body Mass Index 52.25 (113.40 kg, 147.32 cm) aa5 MDM: 10/20 20:13 Data reviewed: vital signs, nurses notes, lab test result(s), radiologic studies. kdr Counseling: I had a detailed discussion with the patient and/or guardian regarding: the historical points, exam findings, and any diagnostic results supporting the discharge/admit diagnosis, lab results, radiology results. 23:13 Patient medically screened. kdr 10/20 19:33 Order name: Basic Metabolic Panel; Complete Time: 20:56 kdr 10/20 19:33 Order name: CBC with Diff; Complete Time: 20:56 kdr 10/20 19:33 Order name: Creatinine for Radiology; Complete Time: 20:56 kdr 10/20 19:33 Order name: Hepatic Function; Complete Time: 20:56 kdr 10/20 19:33 Order name: Lipase; Complete Time: 20:56 kdr 10/20 19:51 Order name: HCG-Quantitative kdr 10/20 20:11 Order name: HCG, Quantitative; Complete Time: 20:56 EDMS 10/20 20:57 Order name: CT Abd/Pelvis - IV Contrast Only kdr 10/20 21:21 Order name: Urine Dipstick--Ancillary (enter results); Complete Time: 22:56 eb 10/20 21:21 Order name: Urine --Ancillary (enter results); Complete Time: 22:56 eb 10/20 19:33 Order name: IV Saline Lock; Complete Time: 21:20 kdr 10/20 19:33 Order name: Labs collected and sent; Complete Time: 21:20 kdr 10/20 19:51 Order name: Urine Test (obtain specimen); Complete Time: 21:16 kdr 10/20 19:51 Order name: Urine Dipstick-Ancillary (obtain specimen); Complete Time: 21:16 kdr Administered Medications: 23:43 Drug: TORadol - Ketorolac 15 mg Route: IVP; Site: left antecubital; rv 23:49 Follow up: Response: No adverse reaction rv 23:43 Drug: Zofran 4 mg Route: IVP; Site: left antecubital; rv 23:49 Follow up: Response: No adverse reaction rv 23:44 Drug: morphine 2 mg {Note: rass 0.} Route: IVP; Site: left antecubital; rv 23:50 Follow up: Response: No adverse reaction; Medication administered at discharge.; RASS: rv Alert and Calm (0) Disposition: 10/20/19 23:13 Discharged to Home. Impression: Abdominal and pelvic pain. - Condition is Stable. - Discharge Instructions: Abdominal Pain, Adult, [id number]. - Prescriptions for Bentyl 20 mg Oral Tablet - take 1 tablet by ORAL route every 6 hours As needed; 20 tablet. Tramadol 50 mg Oral Tablet - take 1 tablet by ORAL route every 8 hours as needed; 12 tablet. Zofran 4 mg Oral Tablet - take 1 tablet by ORAL route every 4-6 hours As needed; 12 tablet. - Medication Reconciliation Form, Thank You Letter, Prescription Opioid Use form. - Follow up: Private Physician; When: 2 - 3 days; Reason: If symptoms return, Further diagnostic work-up, Recheck today's complaints, Continuance of care, Re-evaluation by your physician. - Problem is new. - Symptoms have improved. Signatures: Dispatcher [employer] [facility] Broderick Howard MD MD kdr Laney Rios, RN RN aa5 Eldon Reid RN RN rv Corrections: (The following items were deleted from the chart) 20:11 19:52 HCG, Quantitative ordered. [facility] 10/21 00:17 10/20 23:13 10/20/2019 23:13 Discharged to Home. Impression: Abdominal and pelvic pain. rv Condition is Stable. Forms are Medication Reconciliation Form, Thank You Letter, Antibiotic Education, Prescription Opioid Use. Follow up: Private Physician; When: 2 - 3 days; Reason: If symptoms return, Further diagnostic work-up, Recheck today's complaints, Continuance of care, Re-evaluation by your physician. Problem is new. Symptoms have improved. kdr
[2019-10-20] MEDS ORDERED: ONDANSETRON 4 MG/2 ML VIAL ONE (23:31)
[2019-10-20] MEDS ORDERED: KETOROLAC 30 MG/ML INJ ONE (23:31)
[2019-10-20] MEDS ORDERED: MORPHINE 2 MG/ML SYR ONE (23:31)
[2019-10-21 00:44] VITALS: TEMP 97.7
[2019-10-21 00:49] VITALS: O2SAT 99
[2019-10-21 00:51] VITALS: BP 121/76
--- NOTE | 2019-10-23 11:40 | RAD REPORT ---
EXAM DESCRIPTION: CT - Abdomen Pelvis W Contrast - 10/21/2019 8:20 am CLINICAL HISTORY: 28 years Female ABD PAIN TECHNIQUE: Contiguous axial images obtained through the abdomen and pelvis following intravenous con trast administration. Coronal and sagittal reformatted images provided. This CT exam was performed according to our departmental dose-optimization program, which includes on e or more of the following dose reduction techniques: automated exposure control, adjustment of the m A and/or kV according to patient size, and/or use of iterative reconstruction technique. COMPARISON: 09/29/2019 FINDINGS: Single colonic diverticulum adjacent to the ileocecal bowel again noted without inflammati on. No evidence of appendicitis. No visualized bowel inflammation, obstruction, free intraperitoneal air, or ascites. Prior cholecystectomy without biliary dilatation. The lung bases, liver, pancreas, spleen, adrenal glands, kidneys, uterus, ovaries, urinary bladder, a nd osseous structures are unremarkable. IMPRESSION: No acute abdominal or pelvic abnormalities. 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 The interpreting radiologist is f ully responsible for the content of the report.
== END 2019-10-21 00:17 | disposition home or self-care (01) ==
LOC: ER 18:02
DX: R10.2 Pelvic and perineal pain (principal); R11.0 Nausea
CPT/HCPCS: 85025; 80048; 36415; 81025; 80076; 84702; 81003; 83690; 74177; 96375; 96374; 99284; Q9967; J2270; J2405

== ENCOUNTER 2019-11-01 16:42 | Emergency (ER) | payer OTHER ==
--- NOTE | 2019-11-01 18:39 | ER ---
Nurse's Notes [facility] Name: Jazmyn Barron Age: 28 yrs Sex: Female : 1990 Arrival Date: 11/01/2019 Time: 16:46 Bed 15 Private MD: Diagnosis: Abnormal uterine and vaginal bleeding, unspecified Historical: - Allergies: 11/01 19:33 No Known Allergies; sg - PMHx: 19:33 intestinal infection; sg - Ebola Screening: : Patient negative for fever greater than or equal to 101.5 degrees Fahrenheit, and additional compatible Ebola Virus Disease symptoms Patient denies exposure to infectious person Patient denies travel to an Ebola-affected area in the 21 days before illness onset No symptoms or risks identified at this time. Screenin:10 Abuse screen: Denies threats or abuse. Denies injuries from another. sg Assessment: 17:10 General: Appears in no apparent distress. well groomed, well developed, well nourished, sg Behavior is calm, cooperative, appropriate for age. Pain: Complains of pain in left mid back and right mid back Quality of pain is described as aching, sharp. Neuro: Level of Consciousness is awake, alert, obeys commands, Oriented to person, place, time, Speech is normal, Facial symmetry appears normal. Cardiovascular: Heart tones S1 S2 present Patient's skin is warm and dry. Chest pain is denied. Respiratory: Airway is patent Respiratory effort is even, unlabored, Respiratory pattern is regular, symmetrical. GI: No signs and/or symptoms were reported involving the gastrointestinal system. : No signs and/or symptoms were reported regarding the genitourinary system. : Reports pain in bilateral flank(s). EENT: No signs and/or symptoms were reported regarding the EENT system. Derm: Skin is pink, warm \T\ dry. Musculoskeletal: Circulation, motion, and sensation intact. Range of motion: intact in all extremities. Vital Signs: 17:10 BP 155 / 72; Pulse 77; Resp 18; Temp 97.3; Pulse Ox 100% on R/A; sg ED Course: 16:46 Patient arrived in ED. mr 17:09 Bro Monteiro PA is PHCP. jr8 17:09 Gene Briscoe MD is Attending Physician. jr8 17:10 Pulse ox on. NIBP on. Head of bed elevated. sg 17:11 Ward Guerrero, RN is Primary Nurse. sg 18:39 No provider procedures requiring assistance completed. sg 21:11 Attending Physician role handed off by Gene Briscoe MD jr8 Administered Medications: No medications were administered Outcome: 18:39 Patient left the ED. tw2 18:39 AMA AMA form signed sg 18:39 Condition: good 18:39 Instructed on follow up and referral plans. Demonstrated understanding of instructions. 21:11 Patient left the ED. jr8 Signatures: Ward Guerrero, RN RN Kylah Damon Josh, PA PA jr8 Citlali Sanders RN RN tw2
--- NOTE | 2019-11-01 21:12 | EDPHYS ---
Physician Documentation [facility] Name: Jazmyn Barron Age: 28 yrs Sex: Female : 1990 Arrival Date: 11/01/2019 Time: 16:46 Bed 15 Private MD: ED Physician HPI: 11/01 21:06 This 28 yrs old Female presents to ER via Unassigned with complaints of Back jr8 Pain. 21:06 Patient came to ED because she has had mild back pain and is having a second menstrual jr8 cycle for this month which she normally does not have. Stated that she took home test which was negative but wanted confirmation if possible . Severity of symptoms: At their worst the symptoms were very mild in the emergency department the symptoms are unchanged. The patient has not experienced similar symptoms in the past. The patient has not recently seen a physician. Historical: - Allergies: 19:33 No Known Allergies; sg - PMHx: 19:33 intestinal infection; sg - Ebola Screening: : Patient negative for fever greater than or equal to 101.5 degrees Fahrenheit, and additional compatible Ebola Virus Disease symptoms Patient denies exposure to infectious person Patient denies travel to an Ebola-affected area in the 21 days before illness onset No symptoms or risks identified at this time. ROS: 21:06 Eyes: Negative for injury, pain, redness, and discharge, ENT: Negative for injury, jr8 pain, and discharge, Neck: Negative for injury, pain, and swelling, Cardiovascular: Negative for chest pain, palpitations, and edema, Respiratory: Negative for shortness of breath, cough, wheezing, and pleuritic chest pain, Abdomen/GI: Negative for abdominal pain, nausea, vomiting, diarrhea, and constipation, MS/Extremity: Negative for injury and deformity, Skin: Negative for injury, rash, and discoloration, Neuro: Negative for headache, weakness, numbness, tingling, and seizure. 21:06 Back: Positive for pain at rest, Negative for pain with movement, radiated pain. 21:06 : Positive for menstrual abnormality. Exam: 21:06 Eyes: Pupils equal round and reactive to light, extra-ocular motions intact. Lids and jr8 lashes normal. Conjunctiva and sclera are non-icteric and not injected. Cornea within normal limits. Periorbital areas with no swelling, redness, or edema. ENT: Nares patent. No nasal discharge, no septal abnormalities noted. Tympanic membranes are normal and external auditory canals are clear. Oropharynx with no redness, swelling, or masses, exudates, or evidence of obstruction, uvula midline. Mucous membranes moist. Neck: Trachea midline, no thyromegaly or masses palpated, and no cervical lymphadenopathy. Supple, full range of motion without nuchal rigidity, or vertebral point tenderness. No Meningismus. Cardiovascular: Regular rate and rhythm with a normal S1 and S2. No gallops, murmurs, or rubs. Normal PMI, no JVD. No pulse deficits. Respiratory: Lungs have equal breath sounds bilaterally, clear to auscultation and percussion. No rales, rhonchi or wheezes noted. No increased work of breathing, no retractions or nasal flaring. Abdomen/GI: Soft, non-tender, with normal bowel sounds. No distension or tympany. No guarding or rebound. No evidence of tenderness throughout. Back: No spinal tenderness. No costovertebral tenderness. Full range of motion. Skin: Warm, dry with normal turgor. Normal color with no rashes, no lesions, and no evidence of cellulitis. MS/ Extremity: Pulses equal, no cyanosis. Neurovascular intact. Full, normal range of motion. Neuro: Awake and alert, GCS 15, oriented to person, place, time, and situation. Cranial nerves II-XII grossly intact. Motor strength 5/5 in all extremities. Sensory grossly intact. Cerebellar exam normal. Normal gait. Vital Signs: 17:10 BP 155 / 72; Pulse 77; Resp 18; Temp 97.3; Pulse Ox 100% on R/A; sg MDM: 17:17 Patient medically screened. jr8 21:06 Data reviewed: vital signs, nurses notes. Data interpreted: Pulse oximetry: on room air jr8 is 100 %. Interpretation: normal. ED course: Delay in drawing lab from nurses due to other critical patients at that time that came in. Patient no longer wanted to wait and signed AMA. Administered Medications: No medications were administered Disposition: 11/02 08:12 Co-signature as Attending Physician, Gene Briscoe MD. rn Disposition: 11/01/19 18:39 Patient has left against medical advice. Impression: Abnormal uterine and vaginal bleeding, unspecified. - Patients states they are going to Home. - Condition is Stable. Follow up: Private Physician; When: Tomorrow; Reason: Recheck today's complaints, Continuance of care, Re-evaluation by your physician. - Problem is new. - Symptoms are unchanged. Signatures: Dispatcher [employer] EDWard Leroy RN RN Gene Ma MD MD rn Roszak, Josh, PA PA jr8 Citlali Sanders RN RN tw2 Corrections: (The following items were deleted from the chart) 11/01 21:11 18:39 11/01/2019 18:39 Patients has left against medical advice. Patient states they jr8 are going to Home. Condition is Stable. tw2 21:11 21:11 11/01/2019 18:39 Patients has left against medical advice. Impression: Abnormal jr8 uterine and vaginal bleeding, unspecified. Patient states they are going to Home. Condition is Stable. Follow up: Private Physician; When: Tomorrow; Reason: Recheck today's complaints, Continuance of care, Re-evaluation by your physician. Problem is new. Symptoms are unchanged. jr8
[2019-11-02 03:06] VITALS: BP 155/72; TEMP 97.3; O2SAT 100
== END 2019-11-01 21:11 | disposition left against medical advice (07) ==
LOC: ER 16:42
DX: N93.9 Abnormal uterine and vaginal bleeding, unspecified (principal)
CPT/HCPCS: 99283

== ENCOUNTER 2019-11-03 08:55 | Emergency (ER) | payer OTHER ==
[2019-11-03] MEDS ORDERED: NA CHLORIDE 0.9% 1,000 ML ONE (09:49)
[2019-11-03 09:53] LABS: Urine Blood TRACE (NEG); Urine Glucose NEGATIVE (NEG); Urine Protein NEGATIVE (NEG); Urine Specific Gravity 1.025 (1.005-1.030)
[2019-11-03 10:05] LABS: Basophils % 0.7 % (0-1.3); Hematocrit 39.6 % (36.0-45.0); Lymphocytes % 28.2 % (15.3-44.8); MPV 8.9 fL (7.6-11.3); RBC Red Blood Cell Count 4.36 M/uL (3.86-4.86)
[2019-11-03 10:26] LABS: BUN Blood Urea Nitrogen 10 mg/dL (7-18); Bicarbonate 31 mmol/L (21-32); Glucose Level 97 mg/dL (74-106); Potassium 3.7 mmol/L (3.5-5.1); Sodium Level 141 mmol/L (136-145)
--- NOTE | 2019-11-03 10:57 | EDPHYS ---
Physician Documentation [facility] Name: Jazmyn Barron Age: 28 yrs Sex: Female : 1990 Arrival Date: 11/03/2019 Time: 08:57 Bed 14 Private MD: ED Physician Broderick Howard HPI: 11/03 10:39 This 28 yrs old Female presents to ER via Ambulatory with complaints of Back kb Pain, Vaginal Bleeding. 10:39 The patient presents with vaginal bleeding that is moderate, with clots. Onset: The kb symptoms/episode began/occurred 2 day(s) ago. Modifying factors: The symptoms are alleviated by nothing, the symptoms are aggravated by nothing. Associated signs and symptoms: Pertinent positives: cramping, vaginal bleeding. Severity of symptoms: At their worst the symptoms were moderate, in the emergency department the symptoms are unchanged. The patient has not experienced similar symptoms in the past. The patient has been recently seen at the [facility] Emergency Department, this week, for similar complaints left before diagnostic complete due to wait time. Pt reports she had a normal period on 10/14/19. She started having vaginal bleeding again 2 days ago with lower abd and back pain/cramps. Last night started passing clots. States she took a test at home that was negative, but wants a blood test because she thinks it would be too early to detect with urine. 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 ROS: 10:37 Constitutional: Negative for fever, chills, and weight loss, ENT: Negative for injury, kb pain, and discharge, Neck: Negative for injury, pain, and swelling, Cardiovascular: Negative for chest pain, palpitations, and edema, Respiratory: Negative for shortness of breath, cough, wheezing, and pleuritic chest pain, MS/Extremity: Negative for injury and deformity, Skin: Negative for injury, rash, and discoloration, Neuro: Negative for headache, weakness, numbness, tingling, and seizure. 10:37 Abdomen/GI: Positive for abdominal pain, Negative for nausea, vomiting, and diarrhea. 10:37 Back: Positive for pain at rest, of the low back area. 10:37 : Positive for vaginal bleeding. Exam: 10:38 Constitutional: This is a well developed, well nourished patient who is awake, alert, kb and in no acute distress. Head/Face: Normocephalic, atraumatic. ENT: Nares patent. No nasal discharge, no septal abnormalities noted. Tympanic membranes are normal and external auditory canals are clear. Oropharynx with no redness, swelling, or masses, exudates, or evidence of obstruction, uvula midline. Mucous membranes moist. Neck: Trachea midline, no thyromegaly or masses palpated, and no cervical lymphadenopathy. Supple, full range of motion without nuchal rigidity, or vertebral point tenderness. No Meningismus. Chest/axilla: Normal chest wall appearance and motion. Nontender with no deformity. No lesions are appreciated. Cardiovascular: Regular rate and rhythm with a normal S1 and S2. No gallops, murmurs, or rubs. Normal PMI, no JVD. No pulse deficits. Respiratory: Lungs have equal breath sounds bilaterally, clear to auscultation and percussion. No rales, rhonchi or wheezes noted. No increased work of breathing, no retractions or nasal flaring. Skin: Warm, dry with normal turgor. Normal color with no rashes, no lesions, and no evidence of cellulitis. MS/ Extremity: Pulses equal, no cyanosis. Neurovascular intact. Full, normal range of motion. Neuro: Awake and alert, GCS 15, oriented to person, place, time, and situation. Cranial nerves II-XII grossly intact. Motor strength 5/5 in all extremities. Sensory grossly intact. Cerebellar exam normal. Normal gait. 10:38 Abdomen/GI: Inspection: abdomen appears normal, Bowel sounds: normal, in all quadrants, Palpation: soft, in all quadrants, mild abdominal tenderness, in the right lower quadrant and left lower quadrant. 10:38 Back: pain, that is mild, of the low back area. Vital Signs: 09:05 BP 120 / 70; Pulse 86; Resp 18 S; Temp 98.0(O); Pulse Ox 99% on R/A; aa5 09:15 BP 122 / 74 Supine; Pulse 72; aa5 09:17 BP 109 / 64 Sitting; Pulse 78; aa5 09:19 BP 98 / 72 Standing; Pulse 81; aa5 10:15 BP 105 / 78; Pulse 82; Resp 18; Pulse Ox 100% on R/A; aj1 11:15 BP 116 / 75; Pulse 79; Resp 18; Pulse Ox 97% on R/A; aj1 09:19 Pt denies dizziness while standing. 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 aa5 MDM: 09:03 Patient medically screened. kb 10:37 Data reviewed: vital signs, nurses notes. Data interpreted: Pulse oximetry: on room air kb is 99 %. Interpretation: normal. Counseling: I had a detailed discussion with the patient and/or guardian regarding: the historical points, exam findings, and any diagnostic results supporting the discharge/admit diagnosis, lab results, the need for outpatient follow up, an OB/Gyne specialist, to return to the emergency department if symptoms worsen or persist or if there are any questions or concerns that arise at home. 11/03 09:20 Order name: CBC with Diff; Complete Time: 10:10 kb 11/03 09:20 Order name: Basic Metabolic Panel; Complete Time: 10:28 kb 11/03 09:20 Order name: Test, Serum; Complete Time: 10:51 kb 11/03 09:42 Order name: Urine Dipstick--Ancillary (enter results); Complete Time: 09:54 eb 11/03 09:42 Order name: Urine --Ancillary (enter results); Complete Time: 09:54 eb 11/03 09:03 Order name: Urine Dipstick-Ancillary (obtain specimen); Complete Time: 09:42 kb 11/03 09:14 Order name: Urine Test (obtain specimen); Complete Time: 09:42 kb 11/03 09:14 Order name: Orthostatics; Complete Time: 09:42 kb 11/03 09:20 Order name: IV Start; Complete Time: 10:01 kb Administered Medications: 10:37 Drug: NS 0.9% 1000 ml Route: IV; Rate: 1000 ml; Site: right antecubital; aj1 Disposition: 13:40 Co-signature as Attending Physician, Broderick Howard MD I agree with the assessment and kdr plan of care. Disposition: 11/03/19 10:54 Discharged to Home. Impression: Abnormal uterine and vaginal bleeding, unspecified. - Condition is Stable. - Discharge Instructions: Abnormal Uterine Bleeding, [id number]. - Medication Reconciliation Form, Thank You Letter, Antibiotic Education, Prescription Opioid Use, Work release form form. - Follow up: Private Physician; When: 2 - 3 days; Reason: Recheck today's complaints, Continuance of care, Re-evaluation by your physician. Follow up: Emergency Department; When: As needed; Reason: Worsening of condition. Signatures: Dispatcher [employer] EDMS Eliz Jean, HEEL CUTTER-C HEEL CUTTER-Raine Vasquez RN RN aj1 Broderick Howard MD MD kdr Laney Rios RN RN aa5 Corrections: (The following items were deleted from the chart) 11:45 10:54 11/03/2019 10:54 Discharged to Home. Impression: Abnormal uterine and vaginal aj1 bleeding, unspecified. Condition is Stable. Forms are Medication Reconciliation Form, Thank You Letter, Antibiotic Education, Prescription Opioid Use. Follow up: Private Physician; When: 2 - 3 days; Reason: Recheck today's complaints, Continuance of care, Re-evaluation by your physician. Follow up: Emergency Department; When: As needed; Reason: Worsening of condition. kb
--- NOTE | 2019-11-03 11:47 | ER ---
Nurse's Notes [facility] Name: Jazmyn Barron Age: 28 yrs Sex: Female : 1990 Arrival Date: 11/03/2019 Time: 08:57 Bed 14 Private MD: Diagnosis: Abnormal uterine and vaginal bleeding, unspecified Presentation: 11/03 09:02 Presenting complaint: Patient states: "I had my period on October 14 but 2 days ago I aa5 started bleeding again with clots". Pt also c/o lower back pain. Transition of care: patient was not received from another setting of care. Onset of symptoms was October 2019. Risk Assessment: Do you want to hurt yourself or someone else? Patient reports no desire to harm self or others. Initial Sepsis Screen: Does the patient meet any 2 criteria? No. Patient's initial sepsis screen is negative. Does the patient have a suspected source of infection? No. Patient's initial sepsis screen is negative. Care prior to arrival: None. 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 Screenin:15 Abuse screen: Denies threats or abuse. Nutritional screening: No deficits noted. aa5 Tuberculosis screening: No symptoms or risk factors identified. Fall Risk None identified. Assessment: 09:05 General: Appears comfortable, Behavior is calm, cooperative. Pain: Complains of pain in aa5 lumbar area, left low back and right low back Pain does not radiate. Pain currently is 6 out of 10 on a pain scale. Quality of pain is described as aching, Pain began 2-3 days ago. Is continuous. Neuro: Level of Consciousness is awake, alert, obeys commands, Oriented to person, place, time, situation. Cardiovascular: Heart tones S1 S2 present Rhythm is regular. Respiratory: Airway is patent Respiratory effort is even, unlabored, Respiratory pattern is regular, symmetrical. GI: Abdomen is round non-distended, Bowel sounds present X 4 quads. Abd is soft X 4 quads Abdomen is tender to palpation in right lower quadrant and left lower quadrant. : Reports vaginal bleeding that is bright red, with clots, moderate flow, since 2 days ago Denies burning with urination, urinary frequency. EENT: No signs and/or symptoms were reported regarding the EENT system. Derm: Skin is pink, warm \\T\\ dry. Musculoskeletal: Range of motion: intact in all extremities. 10:05 Reassessment: Patient appears in no apparent distress at this time. No changes from aj1 previously documented assessment. Patient and/or family updated on plan of care and expected duration. Pain level reassessed. Patient is alert, oriented x 3, equal unlabored respirations, skin warm/dry/pink. 11:05 Reassessment: Patient appears in no apparent distress at this time. No changes from aj1 previously documented assessment. Patient and/or family updated on plan of care and expected duration. Pain level reassessed. Patient is alert, oriented x 3, equal unlabored respirations, skin warm/dry/pink. Vital Signs: 09:05 BP 120 / 70; Pulse 86; Resp 18 S; Temp 98.0(O); Pulse Ox 99% on R/A; aa5 09:15 BP 122 / 74 Supine; Pulse 72; aa5 09:17 BP 109 / 64 Sitting; Pulse 78; aa5 09:19 BP 98 / 72 Standing; Pulse 81; aa5 10:15 BP 105 / 78; Pulse 82; Resp 18; Pulse Ox 100% on R/A; aj1 11:15 BP 116 / 75; Pulse 79; Resp 18; Pulse Ox 97% on R/A; aj1 09:19 Pt denies dizziness while standing. APPOINTMENT COORDINATOR was notified of orthostatics. aa5 ED Course: 08:57 Patient arrived in ED. as 09:02 Eliz [facility]C [facility] kb 09:02 Broderick Howard MD is Attending Physician. kb 09:02 Laney Rios, CECILIA is Primary Nurse. aa5 09:02 Arm band placed on. aa5 09:02 Patient has correct armband on for positive identification. Bed in low position. Call aa5 light in reach. Side rails up X2. Pulse ox on. NIBP on. 09:25 Triage completed. aa5 09:54 Initial lab(s) drawn, by me, sent to lab. Inserted saline lock: 20 gauge in right dh3 antecubital area, using aseptic technique. Blood collected. 10:03 Report given to Raine Aguilar RN. aa5 11:45 No provider procedures requiring assistance completed. IV discontinued, intact, aj1 bleeding controlled, No redness/swelling at site. Pressure dressing applied. Administered Medications: 10:37 Drug: NS 0.9% 1000 ml Route: IV; Rate: 1000 ml; Site: right antecubital; aj1 Outcome: 10:54 Discharge ordered by . kb 11:45 Discharged to home ambulatory. aj1 11:45 Condition: good 11:45 Discharge instructions given to patient, Instructed on discharge instructions, follow up and referral plans. Demonstrated understanding of instructions, follow-up care. 11:45 Patient left the ED. aj1 Signatures: Eliz Jean, SENIOR MATERIALS ANALYST-C SENIOR MATERIALS ANALYST-Seb Raine Aguilar RN RN aj1 Lucy Douglas Audri, RN RN aa5 Silvia Johnson 3 Corrections: (The following items were deleted from the chart) 10:13 09:05 BP 120 / 70; Pulse 86bpm; Resp 18bpm; Spontaneous; Pulse Ox 99% RA; aa5 aa5
[2019-11-03 11:51] VITALS: TEMP 98
[2019-11-03 11:57] VITALS: BP 116/75; O2SAT 97
== END 2019-11-03 11:45 | disposition home or self-care (01) ==
LOC: ER 08:55
DX: N93.9 Abnormal uterine and vaginal bleeding, unspecified (principal)
CPT/HCPCS: 85025; 80048; 36415; 84703; 81025; 81003; 99284; J7030

== ENCOUNTER 2020-03-15 18:55 | Emergency (ER) | payer OTHER ==
--- NOTE | 2020-03-15 20:48 | EDPHYS ---
Physician Documentation [facility] Name: Jazmyn Barron Age: 29 yrs Sex: Female : 1990 Arrival Date: 03/15/2020 Time: 19:01 Bed 23 Private MD: ED Physician Scar Winkler HPI: 03/16 00:24 This 29 yrs old Female presents to ER via Ambulatory with complaints of Sore kb Throat, Cough, Sinus Congestion. 00:24 The patient presents with sore throat. The patient describes throat pain as constant. kb Onset: The symptoms/episode began/occurred yesterday. Severity of symptoms: At their worst the symptoms were moderate, in the emergency department the symptoms are unchanged. Modifying factors: The symptoms are alleviated by nothing, the symptoms are aggravated by nothing, Patient's oral intake status: good. Associated signs and symptoms: Pertinent positives: cough, headache, rhinorrhea, Sore throat. The patient has not experienced similar symptoms in the past. The patient has not recently seen a physician. Pt reports she started having a runny nose and sneezing yesterday. Today has a headache, sinus congestion, sore throat, cough. Historical: - Allergies: 03/15 19:07 No Known Drug Allergies; ll1 - PMHx: 19:07 intestinal infection; ll1 - PSHx: 19:07 Cholecystectomy; ll1 - Immunization history:: Adult Immunizations up to date, Flu vaccine is not up to date. - Social history:: Smoking status: Patient denies any tobacco usage or history of. Patient/guardian denies using alcohol, street drugs, tobacco products. ROS: 03/16 00:23 Constitutional: Negative for fever, chills, and weight loss, Neck: Negative for injury, kb pain, and swelling, Cardiovascular: Negative for chest pain, palpitations, and edema, Abdomen/GI: Negative for abdominal pain, nausea, vomiting, diarrhea, and constipation, : Negative for injury, bleeding, discharge, and swelling, MS/Extremity: Negative for injury and deformity, Skin: Negative for injury, rash, and discoloration, Neuro: Negative for headache, weakness, numbness, tingling, and seizure. ENT: Positive for rhinorrhea, sinus congestion, sore throat. Respiratory: Positive for cough, Negative for dyspnea on exertion, hemoptysis, orthopnea, pleurisy, shortness of breath, sputum production, wheezing. Exam: 00:23 Constitutional: This is a well developed, well nourished patient who is awake, alert, kb and in no acute distress. Head/Face: Normocephalic, atraumatic. Neck: Trachea midline, no thyromegaly or masses palpated, and no cervical lymphadenopathy. Supple, full range of motion without nuchal rigidity, or vertebral point tenderness. No Meningismus. Chest/axilla: Normal chest wall appearance and motion. Nontender with no deformity. No lesions are appreciated. Cardiovascular: Regular rate and rhythm with a normal S1 and S2. No gallops, murmurs, or rubs. Normal PMI, no JVD. No pulse deficits. Respiratory: Lungs have equal breath sounds bilaterally, clear to auscultation and percussion. No rales, rhonchi or wheezes noted. No increased work of breathing, no retractions or nasal flaring. Abdomen/GI: Soft, non-tender, with normal bowel sounds. No distension or tympany. No guarding or rebound. No evidence of tenderness throughout. Skin: Warm, dry with normal turgor. Normal color with no rashes, no lesions, and no evidence of cellulitis. MS/ Extremity: Pulses equal, no cyanosis. Neurovascular intact. Full, normal range of motion. Neuro: Awake and alert, GCS 15, oriented to person, place, time, and situation. Cranial nerves II-XII grossly intact. Motor strength 5/5 in all extremities. Sensory grossly intact. Cerebellar exam normal. Normal gait. 00:23 Head/face: Sinus tenderness, that is moderate, is located over the right maxillary sinus and left maxillary sinus. 00:23 ENT: External ear(s): are unremarkable, Ear canal(s): are normal, TM's: fluid levels, on the right, Nose: is normal, Mouth: is normal, Posterior pharynx: Airway: normal, Tonsils: are normal in appearance, Uvula: normal, midline, erythema, that is mild. Vital Signs: 03/15 19:04 BP 117 / 60; Pulse 102; Resp 18; Temp 98.7; Pulse Ox 98% ; Weight 96.62 kg; Height 4 ll1 ft. 10 in. (147.32 cm); Pain 10/10; 21:00 BP 149 / 104; Pulse 92; Resp 16; Pulse Ox 98% on R/A; jb4 19:04 Body Mass Index 44.52 (96.62 kg, 147.32 cm) ll1 MDM: 19:10 Patient medically screened. kb 03/16 00:23 Data reviewed: vital signs, nurses notes. Data interpreted: Pulse oximetry: on room air kb is 98 %. Interpretation: normal. Counseling: I had a detailed discussion with the patient and/or guardian regarding: the historical points, exam findings, and any diagnostic results supporting the discharge/admit diagnosis, lab results, the need for outpatient follow up, a family practitioner, to return to the emergency department if symptoms worsen or persist or if there are any questions or concerns that arise at home. 03/15 19:10 Order name: Strep; Complete Time: 20:27 kb 03/15 19:10 Order name: Flu; Complete Time: 20:27 kb 03/15 20:26 Order name: Throat Culture EDMS Administered Medications: No medications were administered Disposition: 01:40 Co-signature as Attending Physician, Scar Winkler MD. freedom Disposition: 03/15/20 20:47 Discharged to Home. Impression: Acute sinusitis. - Condition is Stable. - Discharge Instructions: Sinusitis, Adult, [id number]. - Work release form, Medication Reconciliation Form, Thank You Letter, Antibiotic Education, Prescription Opioid Use form. - Follow up: Emergency Department; When: As needed; Reason: Worsening of condition. Follow up: Private Physician; When: 2 - 3 days; Reason: Recheck today's complaints, Continuance of care, Re-evaluation by your physician. Signatures: Dispatcher [employer] EDMS Eliz Jean, Scar Serrano MD MD pkl Kashmir Arteaga, RN RN jb4 Charles Bacon RN RN ll1 Corrections: (The following items were deleted from the chart) 03/15 21:08 20:47 03/15/2020 20:47 Discharged to Home. Impression: Acute sinusitis. Condition is jb4 Stable. Forms are Medication Reconciliation Form, Thank You Letter, Antibiotic Education, Prescription Opioid Use. Follow up: Emergency Department; When: As needed; Reason: Worsening of condition. Follow up: Private Physician; When: 2 - 3 days; Reason: Recheck today's complaints, Continuance of care, Re-evaluation by your physician. kb
--- NOTE | 2020-03-15 20:48 | ER ---
Nurse's Notes [facility] Name: Jazmyn Barron Age: 29 yrs Sex: Female : 1990 Arrival Date: 03/15/2020 Time: 19:01 Bed 23 Private MD: Diagnosis: Acute sinusitis Presentation: 03/15 19:04 Chief complaint: Patient states: Sore throat, cough/congestion, fatigue for 2 days, ll1 worse today. No fever. Coronavirus screen: Patient reports a cough. Patient denies shortness of breath or difficulty breathing. Patient denies measured and/or subjective temperature greater than 100.4F prior to today's visit. Patient denies travel on a cruise ship or to a country the [facility]NOTE 3] currently lists as an affected area. Patient denies contact with known and/or suspected case of COVID-19. Ebola Screen: Patient denies travel to an Ebola-affected area in the 21 days before illness onset. Initial Sepsis Screen: Does the patient meet any 2 criteria? HR > 90 bpm. No. Patient's initial sepsis screen is negative. Risk Assessment: Do you want to hurt yourself or someone else? Patient reports no desire to harm self or others. Onset of symptoms was March 14, 2020. 19:04 Method Of Arrival: Ambulatory ll1 19:04 Acuity: TRISTON 4 ll1 Historical: - Allergies: 19:07 No Known Drug Allergies; ll1 - PMHx: 19:07 intestinal infection; ll1 - PSHx: 19:07 Cholecystectomy; ll1 - Immunization history:: Adult Immunizations up to date, Flu vaccine is not up to date. - Social history:: Smoking status: Patient denies any tobacco usage or history of. Patient/guardian denies using alcohol, street drugs, tobacco products. Screenin:30 Abuse screen: Denies threats or abuse. Nutritional screening: No deficits noted. jb4 Tuberculosis screening: No symptoms or risk factors identified. Fall Risk None identified. Assessment: 19:30 General: Appears in no apparent distress. uncomfortable, Behavior is calm, cooperative, jb4 appropriate for age. Pain: Complains of pain in throat and head Pain does not radiate. Pain currently is 10 out of 10 on a pain scale. Quality of pain is described as pressure. Neuro: Level of Consciousness is awake, alert, obeys commands, Oriented to person, place, time, situation. Cardiovascular: Patient's skin is warm and dry. Respiratory: Airway is patent Respiratory effort is even, unlabored, Respiratory pattern is regular, symmetrical. GI: No signs and/or symptoms were reported involving the gastrointestinal system. : No signs and/or symptoms were reported regarding the genitourinary system. EENT: Throat is clear is pink with gag reflex present. Derm: Skin is intact, Skin is pink, warm \T\ dry. Musculoskeletal: Circulation, motion, and sensation intact. Range of motion: intact in all extremities. 21:00 Reassessment: Patient appears in no apparent distress at this time. Patient and/or jb4 family updated on plan of care and expected duration. Pain level reassessed. Patient is alert, oriented x 3, equal unlabored respirations, skin warm/dry/pink. Patient states feeling better. Vital Signs: 19:04 BP 117 / 60; Pulse 102; Resp 18; Temp 98.7; Pulse Ox 98% ; Weight 96.62 kg; Height 4 ll1 ft. 10 in. (147.32 cm); Pain 10/10; 21:00 BP 149 / 104; Pulse 92; Resp 16; Pulse Ox 98% on R/A; jb4 19:04 Body Mass Index 44.52 (96.62 kg, 147.32 cm) ll1 ED Course: 19:01 Patient arrived in ED. mr 19:07 Triage completed. ll1 19:08 Arm band placed on Patient placed in an exam room, on a stretcher. ll1 19:09 Eliz Jean [facility]-C [facility]. kb 19:09 Scar Winkler MD is Attending Physician. kb 19:30 Patient has correct armband on for positive identification. Bed in low position. Call jb4 light in reach. Side rails up X 1. Pulse ox on. NIBP on. 19:32 Kashmir Arteaga, CECILIA is Primary Nurse. jb4 21:07 No provider procedures requiring assistance completed. Patient did not have IV access jb4 during this emergency room visit. Administered Medications: No medications were administered Outcome: 20:47 Discharge ordered by . kb 21:07 Discharged to home ambulatory. jb4 21:07 Condition: stable 21:07 Discharge instructions given to patient, Instructed on discharge instructions, follow up and referral plans. Demonstrated understanding of instructions, follow-up care. 21:08 Patient left the ED. jb4 Signatures: Eliz Jean FNP-C FNP-Kylah Ng James RN RN jb4 Charles Bacon RN RN ll1
== END 2020-03-15 21:08 | disposition home or self-care (01) ==
LOC: ER 18:55
DX: J01.90 Acute sinusitis, unspecified (principal)
CPT/HCPCS: 87070; 87081; 87804; 99283

== ENCOUNTER 2020-10-15 16:17 | Emergency (ER) | payer OTHER ==
--- OUTSIDE RECORDS SUMMARY | 2020-10-15 16:18 | XMS REPORT | Summary of Care ---
:1990 Author Organization [facility] - Health Address [address] [place] [address] Care Team Providers Name Role Phone Suhas Winkler MD Primary Care Provider Encounter Details Date Type Department Care Team Description 10/15/2020 Orders Only [facility] Doctor Unassigned, No [address] [facility] Name [place] [id number] [place] [address] Allergies No Known Allergiesdocumented as of this encounter (statuses as of 10/15/2020) Medications Medication Sig Dispensed Refills Start Date End Date Status Vit-Iron Take 1 tablet by 30 tablet 9 07/06/2018 Active Fumarate-FA (RIGHT STEP mouth daily. VITAMINS) 27 mg iron- 0.8 mg per tablet fluconazole (DIFLUCAN) Take 1 tablet by 10 tablet 1 03/07/2019 Active 100 mg mouth daily. tabletIndications: Candidal intertrigo documented as of this encounter (statuses as of 10/15/2020) Active Problems Problem Noted Date Obesity, Class III, BMI 40-49.9 (morbid obesity) 07/06 documented as of this encounter (statuses as of 10/15/2020) Resolved Problems Problem Noted Date Resolved Date 36 weeks gestation of 02/05/2019 03/07/20 19 labor in third trimester without delivery 02/05/2019 03/07/2019 documented as of this encounter (statuses as of 10/15/2020) Social History Tobacco Use Types Packs/Day Years Used Date Former Smoker Cigarettes 6 Quit: 05/05/20 18 Smokeless Tobacco: Never Used Comments: up to 4 cig/day Alcohol Use Drinks/Week oz/Week Comments Yes social- not whil e Sex Assigned at Date Recorded Not on file documented as of this encounter Last Filed Vital Signs Not on filedocumented in this encounter Plan of Treatment Health Maintenance Due Date Last Done Comments Depression Screening 2001 DTaP,Tdap,and Td Vaccines (1 - 2008 Tdap) INFLUENZA VACCINE (#1) 2020 PAP SMEAR 07/06/2021 07/06/2018 PNEUMOCOCCAL 0-64 YEARS COMBINED Aged Out No longer eligible based on SERIES patient's age to complete this topic documented as of this encounter Procedures Procedure Name Priority Date/Time Associated Diagnosis Comme nts NOTICE OF PRIVACY Routine 10/15/2020 1:21 PM DOCUMENT [employer] documented in this encounter Results Not on filedocumented in this encounter Insurance Payer Benefit Plan / Group Subscriber ID Effective Dates Phone Address Type ENTRUST ENTRUST [id number] 2019-Present PPO documented as of this encounter
--- OUTSIDE RECORDS SUMMARY | 2020-10-15 16:18 | XMS REPORT | Summary of Care ---
:1990 Author Organization [facility] - [facility] Address [address] [place] [id number] Care Team Providers Name Role Phone Suhas Winkler MD Primary Care Provider Reason for Visit Reason Comments Abdominal Pain Back Pain Other nausea Encounter Details Date Type Department Care Team Description 10/15/2020 Emergency ADC-Emergency Josette Zapien Generalize d abdominal Department EMNP pain (Primary Dx) [address] [place] [address] [id number] [place] [address] [phone] Allergies No Known Allergiesdocumented as of this [...] Assigned at Date Recorded Not on file COVID-19 Exposure Response Date Recorded In the last month, have you been in contact with No / Unsure 10/15/2020 1:34 PM BEEF RIBBER someone who was confirmed or suspected to have Coronavirus / COVID-19? documented as of this encounter Last Filed Vital Signs Vital Sign Reading Time Taken Comments Blood Pressure 132/83 10/15/2020 1:35 PM BEEF RIBBER Pulse 100 10/15/2020 1:35 PM BEEF RIBBER Temperature 37.1 C (98.7 F) 10/15/2020 1:35 PM BEEF RIBBER Respiratory Rate 18 10/15/2020 1:35 PM BEEF RIBBER Oxygen Saturation 98% 10/15/2020 1:35 PM BEEF RIBBER Inhaled Oxygen Concentration - - Weight 91.2 kg (201 lb) 10/15/2020 1:35 PM BEEF RIBBER Height 147.3 cm (4' 10") 10/15/2020 1:35 PM BEEF RIBBER Body Mass Index 42.01 10/15/2020 1:35 PM BEEF RIBBER documented in this encounter ED Notes Gretchen Kaiser RN - 10/15/2020 1:34 PM CSTPatient started to have lower back pain and lower abdominal pain for two days. Patient thinks patient is for two weeks. Denies medical history. documented in this encounter Miscellaneous Notes ED Nurse Note - Josette Stephenson RN - 10/15/2020 2:24 PM CSTAttempted to call patient to collect sample for UA, no answer. CN notified. documented in this encounter Plan of Treatment Name Type Priority Associated Diagnoses Order S chedule URINALYSIS LAB STAT Generalized abdominal pain S TAT for 1 Occurrences starting 2020 until 10/15/2020 POCT TEST LAB ROSSANA Generalized abdominal pain ONCE for 1 Occurrences starting 2020 until 10/15/2020 Health Maintenance Due Date Last Done Comments Depression Screening 2001 DTaP,Tdap,and Td Vaccines (1 - 2008 Tdap) INFLUENZA VACCINE (#1) 2020 PAP SMEAR 07/06/2021 07/06/2018 PNEUMOCOCCAL 0-64 YEARS COMBINED Aged Out No longer eligible based on SERIES patient's age to complete this topic documented as of this encounter Results Not on filedocumented in this encounter Visit Diagnoses Diagnosis Generalized abdominal pain - Primary Abdominal pain, generalized documented in this encounter documented as of this encounter
[2020-10-15 17:51] LABS: Absolute Lymphocytes (CBC) 3.5 K/uL (0.7-4.9); Hematocrit 37.5 % (36.0-45.0); Lymphocytes % 28.9 % (15.3-44.8); MPV 8.7 fL (7.6-11.3); RBC Red Blood Cell Count 4.09 M/uL (3.86-4.86)
[2020-10-15 18:07] LABS: ALT/SGPT 23 U/L (12-78); AST/SGOT 14 U/L (15-37); Albumin 3.3 g/dL (3.4-5.0); Alkaline Phosphatase 74 U/L (45-117); BUN Blood Urea Nitrogen 15 mg/dL (7-18); Bicarbonate 30 mmol/L (21-32); Bilirubin Direct < 0.1 mg/dL (0-0.2); Bilirubin Total 0.2 mg/dL (0.2-1.0); Glucose Level 82 mg/dL (74-106); Lipase 108 U/L (73-393); Potassium 3.7 mmol/L (3.5-5.1); Protein, Total 7.2 g/dL (6.4-8.2); Sodium Level 140 mmol/L (136-145)
[2020-10-15 18:08] LABS: HCG, Quantitative < 1 mIU/mL (1-3)
[2020-10-15 18:28] LABS: Urine Blood NEGATIVE (NEG); Urine Glucose NEGATIVE (NEG); Urine Protein NEGATIVE (NEG); Urine pH 6.5 (5.0-7.0)
[2020-10-15 18:37] LABS: Urine Bacteria <20 /HPF (<20); Urine RBC <5 /HPF (NONE SEEN)
--- NOTE | 2020-10-15 20:10 | EDPHYS ---
Physician Documentation [facility] Name: Jazmyn Barron Age: 29 yrs Sex: Female : 1990 Arrival Date: 10/15/2020 Time: 16:18 Bed 14 Private MD: ED Physician Cesario Shaffer HPI: 10/15 17:05 This 29 yrs old Female presents to ER via Ambulatory with complaints of cp Abdominal Pain, Back Pain. 17:05 The patient presents with abdominal pain in the lower abdomen. cp 17:05 Onset: The symptoms/episode began/occurred today. The symptoms radiate to right back. cp 17:05 Associated signs and symptoms: Pertinent negatives: constipation, diarrhea, dysuria, cp fever, vaginal discharge, vaginal bleeding. The symptoms are described as constant. Modifying factors: the symptoms are aggravated by pressure. 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 - Social history:: Smoking status: . ROS: 17:10 Constitutional: Negative for body aches, chills, fever, poor PO intake. cp 17:10 Eyes: Negative for injury, pain, redness, and discharge. cp 17:10 ENT: Negative for ear pain, sore throat, difficulty swallowing, difficulty handling secretions. 17:10 Cardiovascular: Negative for chest pain, palpitations. 17:10 Respiratory: Negative for cough, shortness of breath, wheezing. 17:10 Abdomen/GI: Positive for abdominal pain, of the anterior aspect of right lateral abdomen and right lower quadrant, Negative for vomiting, diarrhea, constipation, anorexia. 17:10 Back: Positive for radiated pain, of the right low back, Negative for injury or acute deformity. 17:10 : Negative for urinary symptoms, pelvic pain, vaginal bleeding, vaginal discharge. 17:10 Neuro: Negative for altered mental status, headache, weakness. 17:10 All other systems are negative. Exam: 17:20 Constitutional: The patient appears in no acute distress, alert, awake, non-toxic, well cp developed, well nourished, obese. 17:20 Head/Face: Normocephalic, atraumatic. cp 17:20 Eyes: Periorbital structures: appear normal, Conjunctiva: normal, no exudate, no injection, Lids and lashes: appear normal, bilaterally. 17:20 ENT: External ear(s): are unremarkable, Nose: is normal, Mouth: Lips: moist, Oral mucosa: pink and intact, moist, Posterior pharynx: Airway: no evidence of obstruction, patent. 17:20 Chest/axilla: Inspection: normal, Palpation: is normal, no crepitus, no tenderness. 17:20 Cardiovascular: Rate: normal, Rhythm: regular. 17:20 Respiratory: the patient does not display signs of respiratory distress, Respirations: normal, no use of accessory muscles, no retractions, labored breathing, is not present, Breath sounds: are clear throughout, no decreased breath sounds. 17:20 Abdomen/GI: Inspection: abdomen appears normal, Bowel sounds: active, all quadrants, Palpation: soft, in all quadrants, mild abdominal tenderness, in the right lower quadrant, rebound tenderness, is not appreciated, voluntary guarding, is not appreciated, involuntary guarding, is not appreciated. 17:20 Back: pain, that is mild, of the right low back, CVA tenderness, is absent. Vital Signs: 16:50 BP 140 / 95; Pulse 98; Resp 18; Temp 97.6(TE); Pulse Ox 100% on R/A; Weight 91.63 kg tw2 (R); Height 4 ft. 10 in. (147.32 cm); Pain 10/10; 17:57 BP 126 / 69; Pulse 87; Resp 16 S; Pulse Ox 100% on R/A; ca1 16:50 Body Mass Index 42.22 (91.63 kg, 147.32 cm) tw2 MDM: 17:00 Patient medically screened. sara 17:00 Differential diagnosis: appendicitis, Ectopic , Ovarian Torsion, Pelvic cp Inflammatory Disease, Pyelonephritis, Tubal Ovarian Abcess, Ureterolithiasis, urinary tract infection. 20:07 Data reviewed: vital signs, nurses notes, lab test result(s), radiologic studies, cp ultrasound. 20:07 Counseling: I had a detailed discussion with the patient and/or guardian regarding: the cp historical points, exam findings, and any diagnostic results supporting the discharge/admit diagnosis, lab results, radiology results. Refusal of service: The patient/guardian displays adequate decision making capability and despite a detailed discussion of alternatives, benefits, risks, and consequences refuses: CT Scan. ED course: VSS. Discussed results of labs and US. Results negative for today. Patient refuses CT due to continued concerns about possible . Will discharge to home for continued monitoring. 10/15 17:12 Order name: Basic Metabolic Panel; Complete Time: 18:11 cp 10/15 17:12 Order name: CBC with Diff; Complete Time: 18:11 cp 10/15 19:58 Interpretation: Normal except: WBC 12.1. cp 10/15 17:12 Order name: Hepatic Function; Complete Time: 18:11 cp 10/15 17:12 Order name: Lipase; Complete Time: 18:11 cp 10/15 17:12 Order name: HCG-Quantitative; Complete Time: 18:11 cp 10/15 17:12 Order name: Urine Microscopic Only; Complete Time: 19:58 cp 10/15 19:58 Interpretation: Reviewed. cp 10/15 17:02 Order name: Urine Dipstick-Ancillary (obtain specimen); Complete Time: 17:37 cp 10/15 17:02 Order name: Urine Test (obtain specimen); Complete Time: 17:37 cp 10/15 17:52 Order name: Urine Dipstick--Ancillary (enter results) bd 10/15 17:52 Order name: Urine --Ancillary (enter results) bd 10/15 17:53 Order name: Urine Dipstick-Ancillary; Complete Time: 19:58 EDMS 10/15 17:53 Order name: Urine --Ancillary; Complete Time: 19:58 EDMS 10/15 18:47 Order name: US Transvaginal Study (Probe) cp 10/15 17:12 Order name: IV Saline Lock; Complete Time: 17:37 cp 10/15 17:12 Order name: Labs collected and sent; Complete Time: 17:37 cp Administered Medications: No medications were administered Disposition: 10/15/20 20:09 Discharged to Home. Impression: Lower abdominal pain, unspecified. - Condition is Stable. - Discharge Instructions: Abdominal Pain, Adult, Form - Return To Work. - Prescriptions for Bentyl 20 mg Oral Tablet - take 1 tablet by ORAL route every 6 hours As needed; 20 tablet. - Medication Reconciliation Form, Thank You Letter, Antibiotic Education, Prescription Opioid Use, Work release form form. - Follow up: Private Physician; When: 1 - 2 days; Reason: Worsening of condition. - Problem is new. - Symptoms have improved. Addendum: 10/17/2020 05:37 Co-signature as Attending Physician, Cesario Shaffer MD I agree with the assessment and c walls plan of care. Signatures: Dispatcher [employer] [facility] Cesario Shaffer MD MD cha Page, Corey, PA PA cp Citlali Sanders, RN RN tw2 Nikki Jenkins, RN RN ll2 Corrections: (The following items were deleted from the chart) 10/15 18:38 18:13 Abdomen Pelvis W Con+CT.RAD.BRZ ordered. [facility] 20:21 20:09 10/15/2020 20:09 Discharged to Home. Impression: Lower abdominal pain, ll2 unspecified. Condition is Stable. Forms are Medication Reconciliation Form, Thank You Letter, Antibiotic Education, Prescription Opioid Use. Follow up: Private Physician; When: 1 - 2 days; Reason: Worsening of condition. Problem is new. Symptoms have improved. cp
--- NOTE | 2020-10-15 20:10 | ER ---
Nurse's Notes [facility] Name: Jazmyn Barron Age: 29 yrs Sex: Female : 1990 Arrival Date: 10/15/2020 Time: 16:18 Bed 14 Private MD: Diagnosis: Lower abdominal pain, unspecified Presentation: 10/15 16:50 Chief complaint: Patient states: i have been having really bad back pain and lower tw2 abdomen pains, i honestly feel like i am , i took a test and it was negative but i feel it. Coronavirus screen: At this time, the client does not indicate any symptoms associated with coronavirus-19. Ebola Screen: Patient denies travel to an Ebola-affected area in the 21 days before illness onset. Initial Sepsis Screen: Does the patient meet any 2 criteria? HR > 90 bpm. No. Patient's initial sepsis screen is negative. Does the patient have a suspected source of infection? No. Patient's initial sepsis screen is negative. Risk Assessment: Do you want to hurt yourself or someone else? Patient reports no desire to harm self or others. Note pt playing on phone in triage. Onset of symptoms was October 15, 2020. 16:50 Method Of Arrival: Ambulatory tw2 16:50 Acuity: TRISTON 3 tw2 Triage Assessment: 16:52 General: Appears in no apparent distress. Behavior is calm, cooperative, appropriate tw2 for age. Pain: Complains of pain in back and abdomen. GI: Reports lower abdominal pain, upper abdominal pain. 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 - Social history:: Smoking status: . Screenin:05 Abuse screen: Denies threats or abuse. Denies injuries from another. Nutritional ca1 screening: No deficits noted. Tuberculosis screening: No symptoms or risk factors identified. Fall Risk IV access (20 points). Assessment: 17:05 General: Appears in no apparent distress. comfortable, Behavior is calm, cooperative, ca1 appropriate for age. Pain: Complains of pain in suprapubic area and left lower quadrant Pain radiates to low back area Pain currently is 9 out of 10 on a pain scale. Quality of pain is described as crampy, Pain began 1 day ago. Is intermittent. Neuro: Level of Consciousness is awake, alert, obeys commands, Oriented to person, place, time, situation. Cardiovascular: Heart tones S1 S2 present Capillary refill < 3 seconds Patient's skin is warm and dry. Respiratory: Airway is patent Respiratory effort is even, unlabored, Respiratory pattern is regular, symmetrical, Breath sounds are clear bilaterally. GI: Abdomen is round non-distended, Bowel sounds present X 4 quads. Abd is soft X 4 quads Abdomen is tender to palpation in suprapubic area and left lower quadrant Reports nausea. : No signs and/or symptoms were reported regarding the genitourinary system. EENT: No signs and/or symptoms were reported regarding the EENT system. Derm: Skin is intact, is healthy with good turgor, Skin is pink, warm \T\ dry. Musculoskeletal: Circulation, motion, and sensation intact. Capillary refill < 3 seconds. 17:57 Reassessment: Patient appears in no apparent distress at this time. Patient and/or ca1 family updated on plan of care and expected duration. Pain level reassessed. Patient is alert, oriented x 3, equal unlabored respirations, skin warm/dry/pink. 18:36 Reassessment: Patient appears in no apparent distress at this time. Patient is alert, ca1 oriented x 3, equal unlabored respirations, skin warm/dry/pink. Pt back from CT. hotel maintenance technician says pt refused CT at this time. 20:20 Reassessment: Patient and/or family updated on plan of care and expected duration. Pain ll2 level reassessed. Patient is alert, oriented x 3, equal unlabored respirations, skin warm/dry/pink. pt notified of D/C. Vital Signs: 16:50 BP 140 / 95; Pulse 98; Resp 18; Temp 97.6(TE); Pulse Ox 100% on R/A; Weight 91.63 kg tw2 (R); Height 4 ft. 10 in. (147.32 cm); Pain 10/10; 17:57 BP 126 / 69; Pulse 87; Resp 16 S; Pulse Ox 100% on R/A; ca1 16:50 Body Mass Index 42.22 (91.63 kg, 147.32 cm) tw2 ED Course: 16:18 Patient arrived in ED. ag3 16:51 Triage completed. tw2 16:52 Arm band placed on. tw2 16:59 Cesario Ordoñez PA is PHCP. cp 16:59 Cesario Shaffer MD is Attending Physician. cp 17:04 Karen Yang, RN is Primary Nurse. ca1 17:05 Patient has correct armband on for positive identification. Bed in low position. Call ca1 light in reach. Side rails up X 1. Pulse ox on. NIBP on. Warm blanket given. 19:07 Report given to CECILIA Jordan. ca1 19:40 US Transvaginal Study (Probe) In Process Unspecified. EDMS 20:21 No provider procedures requiring assistance completed. IV discontinued, intact, ll2 bleeding controlled, No redness/swelling at site. Pressure dressing applied. Administered Medications: No medications were administered Outcome: 20:09 Discharge ordered by MD. cp 20:21 Discharged to home ambulatory. ll2 20:21 Condition: stable 20:21 Discharge instructions given to patient, Instructed on discharge instructions, follow up and referral plans. medication usage, Demonstrated understanding of instructions, follow-up care, medications, Prescriptions given X 1. 20:21 Patient left the ED. ll2 Signatures: Dispatcher [employer] EDMS Cesario Ordoñez PA PA cp Wise, Tara, RN RN tw2 Zarina Hernadez ag3 Karen Yang, RN RN ca1 Nikki Jenkins RN RN ll2
--- NOTE | 2020-10-15 20:18 | RAD REPORT ---
EXAM DESCRIPTION: US - Transvaginal Study Probe - 10/15/2020 7:40 pm CLINICAL HISTORY: right lower abdomen pain COMPARISON: Pelvis Complete dated 06/25/2018 TECHNIQUE: Endovaginal sonography was performed. FINDINGS: Uterine size is normal. The 8 millimeter hypoechoic focus cervical region is probably nabo thian cyst. An additional 10 millimeter oval hypodense masses present anterior lower uterine segment probably a small intramural fibroid. Endometrium is 14 mm in thickness. No intrauterine gestational sac, mass, polyp or other focal endome trial process. Normal size right ovary is seen with normal blood flow within the stroma. No right adnexal mass. Left ovary was obscured by bowel. No evidence for a left adnexal mass. No blood or fluid in the cul de sac. IMPRESSION: Endometrial stripe is 14 mm in thickness with no intrauterine mass, polyp or focal endom etrial process. No significant myometrial finding in normal sized uterus. Normal right ovary and right adnexa. Obscure left ovary due to bowel. No left adnexal mass observed.
== END 2020-10-15 20:21 | disposition home or self-care (01) ==
LOC: ER 16:17
DX: R10.30 Lower abdominal pain, unspecified (principal)
CPT/HCPCS: 36415; 76830; 80048; 80076; 81003; 81015; 81025; 83690; 84702; 85025; 99283

== ENCOUNTER 2020-11-14 23:23 | Emergency (ER) | payer OTHER ==
[2020-11-14 23:52] LABS: Urine Blood TRACE (NEG); Urine Glucose NEGATIVE (NEG); Urine Specific Gravity >1.030 (1.005-1.030)
[2020-11-14 23:53] LABS: Absolute Lymphocytes (CBC) 2.7 K/uL (0.7-4.9); Hematocrit 42.7 % (36.0-45.0); MPV 8.8 fL (7.6-11.3); RBC Red Blood Cell Count 4.63 M/uL (3.86-4.86)
[2020-11-14 23:53] LABS: Urine Protein 1+ (NEG)
[2020-11-15] MEDS ORDERED: FAMOTIDINE 20 MG/2 ML VIAL IV ONE (00:07)
[2020-11-15] MEDS ORDERED: DICYCLOMINE HCL 20 MG/2 ML AMP IM ONE (00:07)
[2020-11-15] MEDS ORDERED: NA CHLORIDE 0.9% 1,000 ML ONE (00:07)
[2020-11-15] MEDS ORDERED: ONDANSETRON 4 MG/2 ML VIAL ONE (00:07)
[2020-11-15 00:08] LABS: ALT/SGPT 16 U/L (12-78); AST/SGOT 13 U/L (15-37); Albumin 3.7 g/dL (3.4-5.0); Alkaline Phosphatase 75 U/L (45-117); BUN Blood Urea Nitrogen 14 mg/dL (7-18); Bicarbonate 30 mmol/L (21-32); Bilirubin Direct < 0.1 mg/dL (0-0.2); Bilirubin Total 0.3 mg/dL (0.2-1.0); Glucose Level 94 mg/dL (74-106); Lipase 115 U/L (73-393); Potassium 3.7 mmol/L (3.5-5.1); Sodium Level 141 mmol/L (136-145)
[2020-11-15] MEDS ORDERED: FENTANYL CITR 100 MCG/2 ML ONE (01:19)
--- NOTE | 2020-11-15 01:55 | EDPHYS ---
Physician Documentation [facility] Name: Jazmyn Barron Age: 29 yrs Sex: Female : 1990 Arrival Date: 11/14/2020 Time: 23:25 Bed 5 Private MD: TUNDE Physician Cesario Shaffer HPI: 11/14 23:45 This 29 yrs old Female presents to ER via Ambulatory with complaints of cp Abdominal Pain, Vomiting. 23:45 The patient presents with abdominal pain mid abdomen. cp 23:45 Onset: The symptoms/episode began/occurred today. Associated signs and symptoms: cp Pertinent positives: nausea and vomiting, Pertinent negatives: constipation, diarrhea, dysuria, fever, vomiting blood. 23:45 Modifying factors: the symptoms are aggravated by pressure. cp Historical: - Allergies: 23:34 No Known Allergies; sg - PMHx: 23:34 intestinal infection; sg - PSHx: 23:34 Cholecystectomy; sg - Immunization history:: Adult Immunizations up to date. - Social history:: Smoking status: Patient denies any tobacco usage or history of. ROS: 23:50 Constitutional: Negative for body aches, chills, fever, poor PO intake. cp 23:50 Eyes: Negative for injury, pain, redness, and discharge. cp 23:50 ENT: Negative for ear pain, sore throat, difficulty swallowing, difficulty handling secretions. 23:50 Cardiovascular: Negative for chest pain, palpitations. 23:50 Respiratory: Negative for cough, shortness of breath, wheezing. 23:50 Abdomen/GI: Positive for abdominal pain, nausea and vomiting, Negative for diarrhea, constipation, hematemesis. 23:50 Back: Negative for radiated pain. 23:50 Neuro: Negative for altered mental status, headache, weakness. 23:50 All other systems are negative. Exam: 23:55 Constitutional: The patient appears in no acute distress, alert, awake, non-toxic, well cp developed, well nourished, obese. 23:55 Head/Face: Normocephalic, atraumatic. cp 23:55 Eyes: Periorbital structures: appear normal, Conjunctiva: normal, no exudate, no injection, Sclera: no appreciated abnormality, Lids and lashes: appear normal, bilaterally. 23:55 ENT: External ear(s): are unremarkable, Nose: is normal, Mouth: Lips: moist, Oral mucosa: moist, Posterior pharynx: Airway: no evidence of obstruction, patent. 23:55 Chest/axilla: Inspection: normal, Palpation: is normal, no crepitus, no tenderness. 23:55 Cardiovascular: Rate: normal, Rhythm: regular. 23:55 Respiratory: the patient does not display signs of respiratory distress, Respirations: normal, no use of accessory muscles, no retractions, labored breathing, is not present, Breath sounds: are clear throughout, no decreased breath sounds, no stridor, no wheezing. 23:55 Abdomen/GI: Inspection: abdomen appears normal, Bowel sounds: active, all quadrants, Palpation: soft, in all quadrants, moderate abdominal tenderness, in the mid upper abdomen, rebound tenderness, is not appreciated, involuntary guarding, is not appreciated. 23:55 Back: pain, is absent, ROM is normal. Vital Signs: 11/15 00:00 BP 105 / 49; Pulse 83; Resp 18; Pulse Ox 100% on R/A; rv 00:02 Temp 98.6; Weight 92.08 kg; Height 4 ft. 10 in. (147.32 cm); rv 00:02 Body Mass Index 42.43 (92.08 kg, 147.32 cm) rv MDM: 11/14 23:38 Patient medically screened. cp 11/15 00:00 Differential diagnosis: appendicitis, bowel obstruction, cholecystitis, Cholelithiasis, cp gastritis, non-specific abd pain, pancreatitis, Ureterolithiasis, urinary tract infection. 01:54 Data reviewed: vital signs, nurses notes, lab test result(s), radiologic studies, CT cp scan. 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 Response to treatment: the patient's symptoms have markedly improved after treatment, VSS. Nausea and pain markedly improved. Vomiting resolved. Patient appears non-toxic. Will discharge to home for continued monitoring. 11/14 23:39 Order name: Basic Metabolic Panel; Complete Time: 00:54 cp 11/15 00:54 Interpretation: Normal except: GFR 88. cp / 23:39 Order name: CBC with Diff; Complete Time: 23:58 cp 02/04 23:58 Interpretation: Normal except: WBC 12.70; NEUT A 9.1. cp /04 23:39 Order name: Hepatic Function; Complete Time: 00:54 cp 02/05 00:55 Interpretation: Normal except: AST 13; GLOB 4.3; A/G 0.9. cp / 23:39 Order name: Lipase; Complete Time: 00:54 cp 02/05 00:55 Interpretation: Within normal limits: LIP 115. cp / 23:51 Order name: Urine Dipstick--Ancillary (enter results); Complete Time: 23:58 mw2 02/ 00:55 Interpretation: Normal except: UKET 1+; UBLD TRACE; UPROT 1+. cp / 23:51 Order name: Urine --Ancillary (enter results); Complete Time: 23:58 mw2 11/14 23:57 Order name: CT Abd/Pelvis - IV Contrast Only cp 11/14 23:39 Order name: IV Saline Lock; Complete Time: 23:41 cp /04 23:39 Order name: Labs collected and sent; Complete Time: 23:41 cp /04 23:39 Order name: Urine Dipstick-Ancillary (obtain specimen); Complete Time: 00:00 cp / 23:39 Order name: Urine Test (obtain specimen); Complete Time: 00:00 cp Administered Medications: 11/14 23:59 Drug: NS 0.9% 1000 ml Route: IV; Rate: 1 bolus; Site: right antecubital; rv 11/15 01:44 Follow up: IV Status: Completed infusion; IV Intake: 1000ml rv 11/14 23:59 Drug: Bentyl 20 mg Route: IM; Site: left deltoid; rv 11/15 01:44 Follow up: Response: No adverse reaction rv 00:00 Drug: Zofran (Ondansetron) 4 mg Route: IVP; Site: right antecubital; rv 01:44 Follow up: Response: No adverse reaction rv 00:00 Drug: Pepcid 20 mg Route: IVP; Site: right antecubital; rv 01:44 Follow up: Response: No adverse reaction rv 01:06 Drug: fentaNYL (PF) 25 mcg Route: IVP; Site: right antecubital; wh 02:11 Follow up: Response: No adverse reaction rv 02:10 Drug: TORadol - Ketorolac 15 mg Route: IVP; Site: right antecubital; rv 02:11 Follow up: Response: Medication administered at discharge. rv 02:10 Drug: metroNIDAZOLE 500 mg Route: PO; rv 02:11 Follow up: Response: Medication administered at discharge. rv 02:10 Drug: Cipro 500 mg Route: PO; rv 02:11 Follow up: Response: Medication administered at discharge. rv Disposition: 05:56 Co-signature as Attending Physician, Cesario Shaffer MD I agree with the assessment and [facility] plan of care. Disposition: 11/15/20 01:55 Discharged to Home. Impression: Unspecified abdominal pain, Nausea and vomiting. - Condition is Stable. - Discharge Instructions: Abdominal Pain, Adult, Nausea and Vomiting, Adult. - Prescriptions for Bentyl 20 mg Oral Tablet - take 1 tablet by ORAL route every 6 hours As needed; 30 tablet. Zofran 4 mg Oral Tablet - take 1 tablet by ORAL route every 12 hours As needed; 20 tablet. Cipro 500 mg Oral Tablet - take 1 tablet by ORAL route every 12 hours for 10 days; 20 tablet. Metronidazole 500 mg Oral Tablet - take 1 tablet by ORAL route every 8 hours; 30 tablet. - Medication Reconciliation Form, Thank You Letter, Antibiotic Education, Prescription Opioid Use form. - Follow up: Jef Garcia MD; When: 1 - 2 days; Reason: Recheck today's complaints. - Problem is new. - Symptoms have improved. Signatures: Dispatcher [employer] EDAK Ward Guerrero RN RN sg Anderson, Corey, MD MD cha Page, Corey, PA PA cp Habalo, Winsy, RN RN Eldon Reid RN RN rv Corrections: (The following items were deleted from the chart) 11/14 23:58 23:58 Normal except: WBC 12.70. cp cp 11/15 02:10 01:55 11/15/2020 01:55 Discharged to Home. Impression: Unspecified abdominal pain; rv Nausea and vomiting. Condition is Stable. Forms are Medication Reconciliation Form, Thank You Letter, Antibiotic Education, Prescription Opioid Use. Follow up: Jef Garcia; When: 1 - 2 days; Reason: Recheck today's complaints. Problem is new. Symptoms have improved. cp
--- NOTE | 2020-11-15 01:55 | ER ---
Nurse's Notes [facility] Name: Jazmyn Barron Age: 29 yrs Sex: Female : 1990 Arrival Date: 11/14/2020 Time: 23:25 Bed 5 Private MD: Diagnosis: Unspecified abdominal pain;Nausea and vomiting Presentation: 11/14 23:33 Chief complaint: Patient states: My stomach has been hurting me and I have been sg vomiting as well. Coronavirus screen: Client denies travel out of the [place] in the last 14 days. nausea, vomiting. Client presents with at least one sign or symptom that may indicate coronavirus-19. Standard/surgical mask placed on the client. Provider contacted for isolation considerations. Ebola Screen: Patient negative for fever greater than or equal to 101.5 degrees Fahrenheit, and additional compatible Ebola Virus Disease symptoms Patient denies exposure to infectious person. Patient denies travel to an Ebola-affected area in the 21 days before illness onset. No symptoms or risks identified at this time. Initial Sepsis Screen: Does the patient meet any 2 criteria? No. Patient's initial sepsis screen is negative. Does the patient have a suspected source of infection? No. Patient's initial sepsis screen is negative. Risk Assessment: Do you want to hurt yourself or someone else? Patient reports no desire to harm self or others. Onset of symptoms was November 14, 2020. Care prior to arrival: None. Transition of care: patient was not received from another setting of care. 23:33 Acuity: TRISTON 3 sg 23:33 Method Of Arrival: Ambulatory sg Triage Assessment: 23:42 General: Appears uncomfortable, Behavior is calm, cooperative. Pain: Complains of pain rv in abdomen. EENT: No signs and/or symptoms were reported regarding the EENT system. Neuro: Level of Consciousness is awake, alert, obeys commands, Oriented to person, place, time, situation. Cardiovascular: Patient's skin is warm and dry. Respiratory: Airway is patent Respiratory effort is even, unlabored, Breath sounds are clear bilaterally. GI: Abdomen is round non-distended, Reports lower abdominal pain, upper abdominal pain, nausea, vomiting. Historical: - Allergies: 23:34 No Known Allergies; sg - PMHx: 23:34 intestinal infection; sg - PSHx: 23:34 Cholecystectomy; sg - Immunization history:: Adult Immunizations up to date. - Social history:: Smoking status: Patient denies any tobacco usage or history of. Screenin:41 Abuse screen: Denies threats or abuse. Denies injuries from another. Nutritional rv screening: No deficits noted. Tuberculosis screening: No symptoms or risk factors identified. Fall Risk None identified. Assessment: 11/15 00:00 GI: Bowel sounds present X 4 quads. Abd is soft and non tender X 4 quads. rv Vital Signs: 00:00 BP 105 / 49; Pulse 83; Resp 18; Pulse Ox 100% on R/A; rv 00:02 Temp 98.6; Weight 92.08 kg; Height 4 ft. 10 in. (147.32 cm); rv 00:02 Body Mass Index 42.43 (92.08 kg, 147.32 cm) rv ED Course: 11/14 23:25 Patient arrived in ED. cf2 23:27 Eldon Reid, CECILIA is Primary Nurse. rv 23:34 Triage completed. sg 23:34 Cesario Ordoñez PA is PHCP. cp 23:34 Cesario Shaffer MD is Attending Physician. cp 23:34 Arm band placed on. sg 23:41 Initial lab(s) drawn, by al, sent to lab. Inserted saline lock: 20 gauge in right rv antecubital area, using aseptic technique. Blood collected. 23:42 Patient has correct armband on for positive identification. Pulse ox on. NIBP on. rv 11/15 00:57 CT Abd/Pelvis - IV Contrast Only In Process Unspecified. EDMS 01:54 Jef Garcia MD is Referral Physician. cp 02:07 No provider procedures requiring assistance completed. IV discontinued, intact, rv bleeding controlled, No redness/swelling at site. Pressure dressing applied. Administered Medications: 11/14 23:59 Drug: NS 0.9% 1000 ml Route: IV; Rate: 1 bolus; Site: right antecubital; rv 11/15 01:44 Follow up: IV Status: Completed infusion; IV Intake: 1000ml rv 11/14 23:59 Drug: Bentyl 20 mg Route: IM; Site: left deltoid; rv 11/15 01:44 Follow up: Response: No adverse reaction rv 00:00 Drug: Zofran (Ondansetron) 4 mg Route: IVP; Site: right antecubital; rv 01:44 Follow up: Response: No adverse reaction rv 00:00 Drug: Pepcid 20 mg Route: IVP; Site: right antecubital; rv 01:44 Follow up: Response: No adverse reaction rv 01:06 Drug: fentaNYL (PF) 25 mcg Route: IVP; Site: right antecubital; wh 02:11 Follow up: Response: No adverse reaction rv 02:10 Drug: TORadol - Ketorolac 15 mg Route: IVP; Site: right antecubital; rv 02:11 Follow up: Response: Medication administered at discharge. rv 02:10 Drug: metroNIDAZOLE 500 mg Route: PO; rv 02:11 Follow up: Response: Medication administered at discharge. rv 02:10 Drug: Cipro 500 mg Route: PO; rv 02:11 Follow up: Response: Medication administered at discharge. rv Intake: 01:44 IV: 1000ml; Total: 1000ml. rv Outcome: 01:55 Discharge ordered by MD. cp 02:09 Discharged to home ambulatory. rv 02:09 Condition: good 02:09 Discharge instructions given to patient, Instructed on discharge instructions, follow up and referral plans. medication usage, Demonstrated understanding of instructions, follow-up care, medications, Prescriptions given X 4. 02:10 Patient left the ED. rv Signatures: Dispatcher [employer] EDMS Ward Guerrero RN Cesario Mcmahon PA PA cp Habalo, Winsy, RN RN Eldon Reid RN RN Linda Kinney
[2020-11-15] MEDS ORDERED: KETOROLAC 30 MG/ML INJ ONE (02:10)
[2020-11-15] MEDS ORDERED: metroNIDAZOLE 500 MG TABLET ONE (02:10)
[2020-11-15] MEDS ORDERED: CIPROFLOXACIN HCL 500 MG TAB ONE (02:10)
[2020-11-15 02:28] VITALS: BP 105/49; O2SAT 100
[2020-11-15 02:29] VITALS: TEMP 98.6
--- NOTE | 2020-11-15 17:45 | RAD REPORT ---
EXAM DESCRIPTION: CT - Abdomen Pelvis W Contrast - 11/15/2020 6:42 am CLINICAL HISTORY: ABD PAIN COMPARISON: 10/20/2019 TECHNIQUE: CT of the abdomen and pelvis performed following IV administration of iodinated contras t. FINDINGS: Lung Bases: The visualized lung bases are clear. Bones: Minimal degenerative endplate spondylosis and facet arthropathy throughout the visualized spin e. Abdomen: Liver: The liver has normal size and density. No intrahepatic biliary dilatation. Gallbladder: Prior cholecystectomy. Spleen, Pancreas, and Adrenal Glands: The spleen, pancreas, and adrenal glands are unremarkable. Kidneys: No hydronephrosis or obstructing calculus. Vasculature: The aorta and IVC have normal caliber and position. The portal vein is patent. The pro ximal visceral and renal arteries are patent. Stomach: The stomach and duodenum have normal course. Other: No free intraperitoneal air. No free fluid or lymphadenopathy. Tiny fat-containing umbilic al hernia. Pelvis: Bladder: Urinary bladder is unremarkable. Bowel: No dilated loops of large or small bowel. Long segment wall thickening of small bowel. Fluid -filled colon. Appendix: Normal appendix. Pelvis: The uterus is not enlarged. Left ovarian corpus luteal cyst measuring 2.5 cm. No follow-up im aging recommended. IMPRESSION: 1. Findings compatible with acute nonspecific enteritis which may be of infectious or in flammatory etiology. 2. Fluid throughout the colon may indicate diarrheal illness. This exam was performed according to our departmental dose-optimization program, which includes autom ated exposure control, adjustment of the mA and/or kV according to patient size and/or use of iterati ve reconstruction technique. Electronically signed by: Selvin Hoff 11/15/2020 1:18 AM RN CHEMICAL DEPENDENCY Due to temporary technical issues with the PACS/Fluency reporting system, reports are being signed by the in house radiologists without review as a courtesy to insure prompt reporting. The interpreting radiologist is fully responsible for the content of the report.
== END 2020-11-15 02:10 | disposition home or self-care (01) ==
LOC: ER 23:23
DX: R11.2 Nausea with vomiting, unspecified (principal)
CPT/HCPCS: 96361; 85025; 80048; 36415; 81025; 80076; 81003; 83690; 74177; 96375; 96372; 96374; 99284; Q9967; J3010

== ENCOUNTER 2021-02-21 12:28 | Emergency (ER) | payer OTHER ==
[2021-02-21 12:56] LABS: Urine Blood Trace-intact (Negative); Urine Glucose Negative (Negative); Urine Protein Negative (Negative)
[2021-02-21 14:04] LABS: Absolute Lymphocytes (CBC) 2.3 K/uL (0.7-4.9); Basophils % 0.9 % (0-1.3); Hematocrit 33.6 % (36.0-45.0); Lymphocytes % 23.4 % (15.3-44.8); MPV 9.2 fL (7.6-11.3); RBC Red Blood Cell Count 3.68 M/uL (3.86-4.86)
[2021-02-21 14:12] LABS: Urine Bacteria 20-50 /HPF (<20); Urine RBC <5 /HPF (NONE SEEN)
[2021-02-21 14:13] LABS: Urine Other Components 2+ (NONE SEEN)
[2021-02-21 14:18] LABS: ALT/SGPT 13 U/L (12-78); AST/SGOT 8 U/L (15-37); Albumin 2.7 g/dL (3.4-5.0); Alkaline Phosphatase 47 U/L (45-117); BUN Blood Urea Nitrogen 10 mg/dL (7-18); Bicarbonate 26 mmol/L (21-32); Bilirubin Direct < 0.1 mg/dL (0-0.2); Bilirubin Total 0.2 mg/dL (0.2-1.0); Glucose Level 72 mg/dL (74-106); Lipase 64 U/L (73-393); Potassium 3.8 mmol/L (3.5-5.1); Protein, Total 6.9 g/dL (6.4-8.2); Sodium Level 138 mmol/L (136-145)
--- NOTE | 2021-02-21 14:26 | EDPHYS ---
Physician Documentation [facility] Name: Jazmyn Barron Age: 30 yrs Sex: Female : 1990 Arrival Date: 02/21/2021 Time: 12:32 Bed 26 Private MD: Sidney Treadwell B ED Physician Cesario hSaffer HPI: 02/21 14:28 This 30 yrs old Female presents to ER via Ambulatory with complaints of kb Abdominal Pain - 17 wks preg. 14:28 The patient presents with abdominal pain that is diffuse. Onset: The symptoms/episode kb began/occurred last night. The symptoms do not radiate. Associated signs and symptoms: none. The symptoms are described as constant. Modifying factors: The symptoms are alleviated by nothing, the symptoms are aggravated by pressure. Severity of pain: At its worst the pain was mild moderate in the emergency department the pain is unchanged. The patient has not experienced similar symptoms in the past. The patient has not recently seen a physician. Pt reports diffuse abd pain that started last night. States she is and wants to make sure everything is ok with the baby. Denies fever, n/v/d. . 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 - Social history:: Smoking status: Patient denies any tobacco usage or history of. ROS: 14:27 Constitutional: Negative for fever, chills, and weight loss. kb 14:27 Abdomen/GI: Positive for abdominal pain, Negative for nausea, vomiting, and diarrhea. 14:27 All other systems are negative. Exam: 14:27 Constitutional: This is a well developed, well nourished patient who is awake, alert, kb and in no acute distress. Head/Face: Normocephalic, atraumatic. ENT: Moist Mucous membranes Cardiovascular: Regular rate and rhythm with a normal S1 and S2. No gallops, murmurs, or rubs. No pulse deficits. Respiratory: Respirations even and unlabored. No increased work of breathing, no retractions or nasal flaring. Skin: Warm, dry with normal turgor. Normal color. MS/ Extremity: Pulses equal, no cyanosis. Neurovascular intact. Full, normal range of motion. Neuro: Awake and alert, GCS 15, oriented to person, place, time, and situation. Moves all extremities. Normal gait. Psych: Awake, alert, with orientation to person, place and time. Behavior, mood, and affect are within normal limits. 14:27 Abdomen/GI: Inspection: abdomen appears normal, Bowel sounds: normal, in all quadrants, Palpation: soft, in all quadrants, mild abdominal tenderness, in all quadrants. Vital Signs: 12:37 BP 103 / 56; Pulse 82; Resp 16 S; Temp 97.7(TE); Pulse Ox 100% on R/A; Weight 97.98 kg jd3 (R); Height 4 ft. 10 in. (147.32 cm) (R); Pain 8/10; 14:13 BP 94 / 56; Pulse 70; Resp 11; Pulse Ox 100% ; aa5 15:07 BP 92 / 49; Pulse 88; Resp 18; Pulse Ox 100% ; tr6 12:37 Body Mass Index 45.14 (97.98 kg, 147.32 cm) jd3 MDM: 12:57 Patient medically screened. kb 14:24 Data reviewed: vital signs, nurses notes. Data reviewed: old medical records, OB kb Complete US from this week reviewed. Data interpreted: Pulse oximetry: on room air is 100 %. Interpretation: normal. Counseling: I had a detailed discussion with the patient and/or guardian regarding: the historical points, exam findings, and any diagnostic results supporting the discharge/admit diagnosis, lab results, the need for outpatient follow up, an OB/Gyne specialist, to return to the emergency department if symptoms worsen or persist or if there are any questions or concerns that arise at home. 02/21 12:56 Order name: Urine Dipstick-Ancillary; Complete Time: 12:57 EDMS 02/21 13:04 Order name: Basic Metabolic Panel; Complete Time: 14:19 kb 02/21 13:04 Order name: CBC with Diff; Complete Time: 14:09 kb 02/21 13:04 Order name: Hepatic Function; Complete Time: 14:19 kb 02/21 13:04 Order name: Lipase; Complete Time: 14:19 kb 02/21 13:04 Order name: Urine Microscopic Only; Complete Time: 14:18 kb 02/21 13:04 Order name: IV Saline Lock; Complete Time: 13:32 kb 02/21 13:04 Order name: Labs collected and sent; Complete Time: 13:32 kb 02/21 13:04 Order name: FHT's; Complete Time: 14:12 kb 02/21 14:20 Order name: Urine Culture EDMS Administered Medications: No medications were administered Disposition: 02/22 07:47 Co-signature as Attending Physician, Cesario Shaffer MD I agree with the assessment and [facility] plan of care. Disposition: 02/21/21 14:25 Discharged to Home. Impression: state, Generalized abdominal pain, Urinary tract infection, site not specified. - Condition is Stable. - Discharge Instructions: Abdominal Pain During , [id number], and Urinary Tract Infection. - Prescriptions for Macrobid 100 mg Oral Capsule - take 1 capsule by ORAL route every 12 hours for 5 days; 10 capsule. - Medication Reconciliation Form, Thank You Letter, Antibiotic Education, Prescription Opioid Use form. - Follow up: Emergency Department; When: As needed; Reason: Worsening of condition. Follow up: Sidney Treadwell MD; When: 1 week; Reason: Recheck today's complaints, Continuance of care, Re-evaluation by your physician. Signatures: Dispatcher [employer] EDDC Eliz Jean, MANUFACTURING SPECIALIST-C MANUFACTURING SPECIALIST-Ckb Cesario Shaffer MD MD cha Davies, Jonathon, RN RN jd3 Desiree Ramires RN RN tr6 Corrections: (The following items were deleted from the chart) 02/21 15:08 14:25 02/21/2021 14:25 Discharged to Home. Impression: state; Generalized tr6 abdominal pain; Urinary tract infection, site not specified. Condition is Stable. Forms are Medication Reconciliation Form, Thank You Letter, Antibiotic Education, Prescription Opioid Use. Follow up: Emergency Department; When: As needed; Reason: Worsening of condition. Follow up: Sidney Treadwell; When: 1 week; Reason: Recheck today's complaints, Continuance of care, Re-evaluation by your physician. kb
--- NOTE | 2021-02-21 14:26 | ER ---
Nurse's Notes [facility] Name: Jazmyn Barron Age: 30 yrs Sex: Female : 1990 Arrival Date: 02/21/2021 Time: 12:32 Bed 26 Private MD: Sidney Treadwell B Diagnosis: state;Generalized abdominal pain;Urinary tract infection, site not specified Presentation: 02/21 12:36 Chief complaint: Patient states: "I am having some stomach pain and I am currently 17 jd3 weeks .". Coronavirus screen: At this time, the client does not indicate any symptoms associated with coronavirus-19. Ebola Screen: Patient negative for fever greater than or equal to 101.5 degrees Fahrenheit, and additional compatible Ebola Virus Disease symptoms. Initial Sepsis Screen: Does the patient meet any 2 criteria? No. Patient's initial sepsis screen is negative. Does the patient have a suspected source of infection? No. Patient's initial sepsis screen is negative. Risk Assessment: Do you want to hurt yourself or someone else? Patient reports no desire to harm self or others. Onset of symptoms was February 20, 2021. 12:36 Method Of Arrival: Ambulatory jd3 12:36 Acuity: TRISTON 3 jd3 BUSPERSON: 12:37 LMP N/A - Irregular menses jd3 Historical: - Allergies: 12:37 No Known Allergies; jd3 - Home Meds: 12:37 Vitamin Oral [Active]; jd3 - PMHx: 12:37 intestinal infection; jd3 - PSHx: 12:37 Cholecystectomy; jd3 - Immunization history:: Adult Immunizations up to date. - Social history:: Smoking status: Patient denies any tobacco usage or history of. Screenin:14 Abuse screen: Denies threats or abuse. Denies injuries from another. Nutritional aa5 screening: No deficits noted. Tuberculosis screening: No symptoms or risk factors identified. Fall Risk None identified. Assessment: 12:30 General: Appears in no apparent distress. comfortable, obese, well groomed, Behavior is aa5 calm, cooperative, appropriate for age. Pain: Complains of pain in pt c/o lower abdominal cramping beginning yesterday. Neuro: No deficits noted. Cardiovascular: No deficits noted. Respiratory: No deficits noted. GI: +FHT Abd is non tender. : No deficits noted. EENT: No deficits noted. Derm: No deficits noted. Musculoskeletal: No deficits noted. Vital Signs: 12:37 BP 103 / 56; Pulse 82; Resp 16 S; Temp 97.7(TE); Pulse Ox 100% on R/A; Weight 97.98 kg jd3 (R); Height 4 ft. 10 in. (147.32 cm) (R); Pain 8/10; 14:13 BP 94 / 56; Pulse 70; Resp 11; Pulse Ox 100% ; aa5 15:07 BP 92 / 49; Pulse 88; Resp 18; Pulse Ox 100% ; tr6 12:37 Body Mass Index 45.14 (97.98 kg, 147.32 cm) jd3 Vitals: 14:09 Heart Tones 156 beats per minute. aa5 ED Course: 12:32 Patient arrived in ED. am2 12:32 Sidney Treadwell MD is Private Physician. am2 12:37 Triage completed. jd3 12:38 Arm band placed on. jd3 12:56 Eliz [facility]C [facility]. kb 12:56 Cesario Shaffer MD is Attending Physician. kb 13:22 Desiree Ramires RN is Primary Nurse. tr6 13:32 Inserted saline lock: 20 gauge in right antecubital area, using aseptic technique. tr6 Blood collected. 13:32 No provider procedures requiring assistance completed. tr6 14:15 Patient has correct armband on for positive identification. Bed in low position. Call aa5 light in reach. Side rails up X 1. 14:25 Sidney Treadwell MD is Referral Physician. kb 15:07 IV discontinued, intact, bleeding controlled, No redness/swelling at site. Pressure tr6 dressing applied. Administered Medications: No medications were administered Outcome: 14:25 Discharge ordered by . kb 15:07 Discharged to home ambulatory. tr6 15:07 Condition: good 15:07 Discharge instructions given to patient, Instructed on discharge instructions, follow up and referral plans. no drinking with medication, medication usage, safety practices, Demonstrated understanding of instructions, follow-up care, medications, Prescriptions given X 1. 15:08 Patient left the ED. tr6 Signatures: Eliz Jean FNP-C FNP-Ckb Calderon, Audri RN RN aa5 Erika Leslie am2 Eduardo Cochran, RN RN jd3 Desiree Ramires, RN RN tr6
[2021-02-21 15:29] VITALS: TEMP 97.7; O2SAT 100
[2021-02-21 15:32] VITALS: BP 92/49
== END 2021-02-21 15:08 | disposition home or self-care (01) ==
LOC: ER 12:28
DX: O23.42 Unspecified infection of urinary tract in pregnancy, second trimester (principal); Z3A.17 17 weeks gestation of pregnancy; O99.891 Other specified diseases and conditions complicating pregnancy; R10.84 Generalized abdominal pain
CPT/HCPCS: 36415; 80048; 80076; 81003; 81015; 83690; 85025; 87086; 87088; 99284

== ENCOUNTER 2021-07-02 01:33 | Inpatient (IN) | payer OTHER ==
[2021-07-02] MEDS ORDERED: PENICILLIN 5 MU in NA CHLORIDE 0.9% 100 ML IV ONE (01:57)
[2021-07-02] MEDS ORDERED: Ringers Lactate 1,000 ML IV PRN ×2 (01:57→02:39)
[2021-07-02] MEDS ORDERED: PROMETHAZINE INJ 25 MG/ML AMP IM PRN (01:57)
[2021-07-02] MEDS ORDERED: METHYLERGONOVINE 0.2MG/ML AMP IM PRN (01:57)
[2021-07-02] MEDS ORDERED: BUTORPHANOL 1 MG/ML INJ IV PRN (01:57)
[2021-07-02] MEDS ORDERED: Ringers Lactate 1,000 ML IV SCH ×2 (02:00→03:00)
[2021-07-02 03:03] LABS: Absolute Lymphocytes (CBC) 2.3 K/uL (0.7-4.9); Basophils % 0.5 % (0-1.3); Hematocrit 30.8 % (36.0-45.0); Lymphocytes % 23.2 % (15.3-44.8); MPV 9.2 fL (7.6-11.3); RBC Red Blood Cell Count 3.39 M/uL (3.86-4.86)
[2021-07-02 03:12] LABS: Urine Appearance CLEAR (Clear); Urine Bilirubin NEGATIVE (Negative); Urine Blood NEGATIVE (Negative); Urine Color YELLOW (Yellow); Urine Glucose NEGATIVE (Negative); Urine Protein NEGATIVE (Negative); Urine Specific Gravity 1.015 (1.005-1.030); Urine Urobilinogen 0.2 mg/dL (0.2-1.0)
[2021-07-02 03:15] LABS: Urine Microscopic Reflex ORDER UMIC
[2021-07-02 03:46] LABS: Urine Bacteria <20 /HPF (<20); Urine RBC <5 /HPF (NONE SEEN); Urine Urothelial Cells <5 /HPF (NONE SEEN)
[2021-07-02] MEDS ORDERED: PENICILLIN G POT 5 MU/VIAL IV ONE (04:01)
[2021-07-02 04:05] VITALS: BMI 45.8
--- NOTE | 2021-07-02 05:37 | PREOPHP ---
Date of Admission: 07/02/2021 History Of Present Illness: This is a 30-year-old, 3, para 2, previous history of first deli very at 34 weeks, second at 37 weeks. The patient has had Celestone during the . By last m enstrual period, the patient is 36 weeks and 1 day, 2 ultrasounds which deferred by 6 days and the LM P, the patient is 36 and 6. She has been 3 cm in the office, came into the hospital, essence reg ularly, noted to be about 3.5 cm, possibly even 4, rating pain scale of 8-9. Has been admitted. Dur ing observation period, her contractions have spaced out somewhat. She is having contractions still every 4 minutes. She still rates her pain scale of 9. Cervix is 3.5, so she has changed from my exa m in the office, vertex so still at -2 station. Baby looks good on the monitor. She is strep positi ve, but membranes are still intact. We are observing the patient at this time to decide if the patie nt is truly in labor. If she is in labor, we will start her on penicillin and expedite delivery. Family History: Mother with hypertension. Maternal grandmother with heart attacks. Mother with str chester. Mother and father with diabetes. Two or three people in the family with unassociated type of c ancers. The patient has had gallbladder surgery before. Allergies: SHE HAS NO ALLERGIES. Social History: She does not smoke. Medications: She has been taking vitamins and iron. Has had Celestone 2 doses given someti me ago. Physical Examination: HEENT: Clear. Pupils equal, round, and reactive to light and accommodation. Conjunctivae well perf used. No oral, lingual, or buccal lesions. Chest and Lungs: Clear. Heart: Without murmurs, thrills, heaves, or rubs. Breasts: Without masses on previous visits. Abdomen: Appropriate for her stage of gestation. Extremities: Clear without edema, cyanosis, or clubbing. Pelvic Exam: As stated 3.5 cm, 50% effaced, possibly 60, membranes intact. Baby still at -2 station , but the patient is essence regularly, although not as frequently as she was when she was admitt ed and says her pain scale is at a 9, although she is tolerating things well and not requesting analg esics. We will observe for the next 2-3 hours. If membranes rupture, we will start penicillin prophylaxis o r if she continues to contract the next hour or so, I have ordered penicillin prophylaxis. I will ma ke rounds again in about 2-3 hours and will determine then what kind of progress she has made. Other bansal, she is sent home at this point, so we are going to continue with observation until it becomes o bvious whether the patient is making progress. SHER/MONICA Voice ID: [id number]
[2021-07-02] MEDS ORDERED: FENTANYL CITR 100 MCG/2 ML IV ONE ×2 (07:21→11:42)
[2021-07-02] MEDS ORDERED: ROPIVACAINE HCL 0.2% 20ML AMP EP ONE (07:23)
[2021-07-02] MEDS ORDERED: ROPIVACAINE HCL/PF 0.2% 10 ML VIAL EP ONE ×2 (07:23→11:44)
[2021-07-02] MEDS ORDERED: OXYTOCIN/LR 20 UNIT/1,000 ML BAG IV ONE (07:32)
[2021-07-02] MEDS ORDERED: 0.2% ROPIVACAINE (200 MG/100 ML) BAG EP ONE ×2 (08:00→12:00)
[2021-07-02] MEDS ORDERED: PENICILLIN 2.5 MU in NA CHLORIDE 0.9% 100 ML IV SCH (10:27)
--- NOTE | 2021-07-02 10:58 | PN ---
The patient has made significant cervical change. She is now 4.5 to 5. Baby though is still at -2 s tation. Baby looks good on the monitor, but I do not feel quite comfortable yet doing membrane of ru pture. We will wait until the baby comes down a little bit. The patient is requesting epidural. We will go ahead and order that now. She has had a dose of penicillin about an hour and 15 minutes ago . We will start light Pitocin to bring the vertex down. She knows if membranes rupture spontaneousl y, she is to tell the nurse to make sure there is no problem with cord. Anticipate more rapid progre ss once the membranes have ruptured. SHER/MONICA Voice ID: [id number] Report ID: [id number]
--- NOTE | 2021-07-02 10:58 | PN ---
The patient is essence more regularly now. Baby looks very good. She is a good 5 cm, now 80% ef faced, but the baby is still at -2 station. She is being hydrated in preparation for her epidural. We will check her again in the next hours or so. As soon as the baby comes down enough, we can ruptu re membranes and I think that will expedite matters. SHER/MONICA Voice ID: [id number] Report ID: [id number]
--- NOTE | 2021-07-02 13:37 | PN ---
The patient is now 6 cm, 90% effaced, vertex better applied. Rupture of membranes. Clear fluid. Ba by well applied to the cervix now. FHT is normal and reactive. The patient still cannot feel her con tractions. We will move the epidural maintenance from 8 to 4. Now that the baby is better applied t o the cervix, I think we are going to make more rapid progress. SHER/MONICA Voice ID: [id number] Report ID: [id number]
--- NOTE | 2021-07-02 13:43 | PN ---
The patient is essence every 2 to 3 minutes. Baby still looks very good. She is quite comfortab le in fact cannot tell when she is having contractions at all. She is now about 6 cm, 80% effaced at least, but the baby is till high, I can ballotte it even during the contraction. Membrane of ruptur e should occur spontaneously fairly soon, but we will wait another hours and check her again. I stil l do not feel safe in rupture of membranes at this point. Full discussion with the patient. She can not remember whether the same thing happened with her other deliveries. I do not think we are dealin g with any exceptionally large baby, could be occiput posterior. I doubt we have a cord entanglement causing the baby to stay up high since the heart rate showing no decelerations whatsoever. In any e vent, mother and baby are doing well. We will continue to observe. SHER/MONICA Voice ID: [id number] Report ID: [id number]
[2021-07-02] MEDS ORDERED: LIDOCAINE 1% MPF 30 ML VIAL SQ ONE (14:00)
[2021-07-02] MEDS ORDERED: DIPHENHYDRAMINE 25 MG TAB/CAP PO PRN (15:42)
[2021-07-02] MEDS ORDERED: DOCUSATE NA/SENNA CONC 1 TAB PO PRN (15:42)
[2021-07-02] MEDS ORDERED: ACETAMINOPHEN 500 MG TAB PO PRN (15:42)
[2021-07-02] MEDS ORDERED: Oxycodone HCl/Acetaminophen 1 TAB TAB PO PRN ×2 (15:42)
[2021-07-02] MEDS ORDERED: BISACODYL 10 MG RECTAL SUPP PR PRN (15:42)
[2021-07-02] MEDS ORDERED: OXYTOCIN/LR 20 UNIT/1,000 ML BAG IV SCH (16:00)
--- NOTE | 2021-07-02 17:34 | PN ---
The patient is more aware of her contractions. She is now about 8 cm, about 0 station. FHT still lo oked very good. I think we are going to make more rapid progress. We will move the delivery table i n and prepare for delivery. SHER/MONICA Voice ID: [id number] Report ID: [id number]
[2021-07-02] MEDS ORDERED: Ringers Lactate 2,000 ML IV ONE (18:34)
[2021-07-02] MEDS ORDERED: Ringers Lactate 1,000 ML IV ONE (18:47)
--- NOTE | 2021-07-02 20:43 | OP ---
Surgeon: Sidney Treadwell MD Procedure In Detail: This is a 30-year-old, 3, para 2, history of labor. Had Belle one during the . Came in between 36 weeks 1 day; and 36 and 6, possibly 37 by ul trasound versus LMP. She was in early labor. During the labor, requested and received epidural anes thesia, at approximately 4-5 cm. Second stage of about 30 minutes. Spontaneous vaginal delivery of a 7-pound 12-ounce male infant. Nuchal cord x2, tightly. Apgars 8 and 9. Schultze delivery of the placenta. Uterus contracted down very well with IV drip Pitocin and massage. Estimated blood loss 3 00 mL or less. The patient had 3 doses of penicillin during the labor because of beta strep positive status. She is Rh positive, immune to rubella, negative COVID. Tolerated all procedures well. Final Diagnoses: Intrauterine gestation between 36 weeks and 1 day and possibly 37 weeks. Beta stre p prophylaxis. Nuchal cord x2. Epidural anesthesia. NBC/MODL Voice ID: [id number] Report ID: [id number]
[2021-07-02] MEDS: IBUPROFEN 600 MG TAB PO PRN (22:10)
[2021-07-03 06:04] LABS: RPR (Rapid Plasma Reagin) NON-REACT (NON-REACT)
--- NOTE | 2021-07-03 08:35 | DS ---
A 30-year-old, 3, para 2, at approximately 36 weeks and 2 days, history of labor had Celestone during her . Came in and delivered of a 7 pounds 12 ounces male infant, Apgars 8 and 9. Second-degree episiotomy performed, repaired with 2-0 chromic. Nuchal cord noted x2 on the b adriel. Less than 300 cc blood loss. Penicillin prophylaxis given during the labor. , afebr ile, ambulating, voiding. Lochia is normal. She will be dismissed later today to report back to my office in 6 weeks for followup. To report any temperature elevation of 100 degrees or greater, sever e pain, heavy bleeding, or any other type of abnormalities. She does not require any analgesics on d ismissal. All of her immunizations have been discussed. No post epidural problems. Final Diagnoses: Intrauterine gestation 36 weeks 2 days, premature labor, vaginal delivery, epidural anesthesia, penicillin prophylaxis, nuchal cord x2. SHER/MONICA Voice ID: [id number] Report ID: [id number]
[2021-07-03] MEDS: IBUPROFEN 600 MG TAB PO PRN (12:15)
[2021-07-03 15:56] VITALS: BP 113/57; TEMP 97.3
[2021-07-06 18:40] LABS: HBsAG Nonreactive (Nonreactive)
== END 2021-07-03 16:45 | disposition home or self-care (01) | DRG 807 ==
LOC: L&D 01:33 → 2ND-WCNRSY 01:54 → 2ND-WC 02:35
PROVIDERS: ADMIT Specialist; ATTEND Specialist
PROC: 10E0XZZ Delivery of Products of Conception, External Approach (ICD-10-PCS; principal; 2021-07-02)
PROC: 0W8NXZZ Division of Female Perineum, External Approach (ICD-10-PCS; 2021-07-02)
PROC: 10907ZC Drainage of Amniotic Fluid, Therapeutic from Products of Conception, Via Natural or Artificial Opening (ICD-10-PCS; 2021-07-02)
PROC: 4A1H7CZ Monitoring of Products of Conception, Cardiac Rate, Via Natural or Artificial Opening (ICD-10-PCS; 2021-07-02)
PROC: 10H073Z Insertion of Monitoring Electrode into Products of Conception, Via Natural or Artificial Opening (ICD-10-PCS; 2021-07-02)
DX: O60.13X0 Preterm labor second trimester with preterm delivery third trimester, not applicable or unspecified (principal); Z37.0 Single live birth; O99.824 Streptococcus B carrier state complicating childbirth; O09.213 Supervision of pregnancy with history of pre-term labor, third trimester; Z3A.36 36 weeks gestation of pregnancy; Z20.822 Contact with and (suspected) exposure to COVID-19; O69.81X0 Labor and delivery complicated by cord around neck, without compression, not applicable or unspecified
CPT/HCPCS: 36415; 81003; 81015; 85025; 86592; 86850; 86900; 86901; 87086; 87088; 87340; 99218; J2540; J2590; J2795; J3010; J3105; J7120; U0003